=== PATIENT | male | born 1930 | race Caucasian/White ===

== ENCOUNTER 2016-04-01 05:33 | Inpatient (IN) | payer MEDICARE, OTHER ==
[~2016-04-01] VITALS: Ht 180.3 cm; Wt 92.5 kg
[2016-04-01 05:51] LABS: BASOPHILS 0.2 % (0.0-2.0); EOSINOPHILS 0.3 % (0-7); HEMATOCRIT 50.6 % (42.0-54.0); IMMATURE GRANULOCYTES 0.2 % (0-5); LYMPHOCYTES 11.7 % (15-50); MCHC 33.6 g/dL (31.0-37.0); MCV 95.1 fL (80.0-100.0); MEAN PLATELET VOLUME 10.3 fL (7.4-10.4); MONOCYTES 6.1 % (2-11); NEUTROPHILS 81.5 % (40-80); PLATELET COUNT 129 10x3/uL (130-400); RBC 5.32 10x6/uL (4.20-6.10); RDW 13.3 % (11.5-14.5); WBC 11.3 10x3/uL (4.8-10.8)
[2016-04-01 06:28] LABS: ALBUMIN 4.2 g/dL (3.4-5.0); ALKALINE PHOSPHATASE 54 U/L (46-116); ALT (SGPT) 20 U/L (10-68); CALC OSMOLALITY 287 mosm/kg (275-300); CALCIUM 9.6 mg/dL (8.5-10.1); CARBON DIOXIDE 27.3 mmol/L (21.0-32.0); CHLORIDE - SERUM 102 mmol/L (98-107); CREATININE - SERUM 1.6 mg/dL (0.6-1.3); GLUCOSE 183 mg/dL (74-106); POTASSIUM - SERUM 4.5 mmol/L (3.5-5.1); PROTEIN - SERUM 7.2 g/dL (6.4-8.2); SODIUM 138 mmol/L (136-145); UREA NITROGEN 31 mg/dL (7-18); eGFR NON AFRICAN AMERICAN 44 mL/min (90-120)
[2016-04-01 06:38] LABS: AMYLASE - SERUM 75 U/L (25-115); CHOL - HDL RATIO 2.6 ratio (2.3-4.9); CHOLESTEROL, TOTAL 148 mg/dL (0-200); CKMB 2.7 U/L (0.0-3.6); CREATINE KINASE 100 UL (21-232); HDL CHOLESTEROL 57 mg/dL (32-96); LDL CHOLESTEROL 71 mg/dL (0-100); LDL-HDL RATIO 1.2 ratio (1.5-3.5); LIPASE 87 U/L (73-393); PRO BNP 199 pg/mL (0-450); TRIGLYCERIDE 102 mg/dL (30-200); TROPONIN-I < 0.017 ng/mL (0.000-0.060)
--- NOTE | 2016-04-01 10:42 | NUR ---
RECEIVED TO ROOM 2203 FROM ER VIA . ORIENTED TO ROOM AND CALL LIGHT SYSTEM. HISTORY AND MED REC REVIEWED. PASSWORD OBTAINED. IN ROOM. CALL LIGHT IN REACH. WILL CONTINUE WITH PLAN OF CARE.
[2016-04-01] MEDS ORDERED: PRAVACHOL80 MG PO (10:45)
[2016-04-01] MEDS ORDERED: FLOMAX0.4 MG PO (10:45)
[2016-04-01] MEDS ORDERED: BAYER CHEWABLE81 MG PO (10:45)
[2016-04-01 11:29] VITALS: BP 142/76
--- NOTE | 2016-04-01 11:38 | NUR ---
NEW MEDS ADMINISTERED PER ORDER. CONSENT FORMS EXPLAINED TO PATIENT AND FAMILY, SIGNED, AND WITNESSED.
[2016-04-01 11:57] VITALS: BP 142/76; BMI 28.6
--- NOTE | 2016-04-01 13:54 | NUR ---
PREOP MEDS ADMINISTERED PER STUDENT NURSES. WAITING ON OR TO PICK PATIENT UP
--- NOTE | 2016-04-01 15:25 | NUR ---
TO OR VIA BED.
[2016-04-01 17:57] VITALS: BP 139/78
--- NOTE | 2016-04-01 17:57 | NUR ---
RECEIVED BACK TO ROOM VIA BED. FAMILY AT BEDSIDE. IV FLUIDS RUNNING. SCDs TO BLE. URINAL GIVEN TO PATIENT. FAMILY IN ROOM. CALL LIGHT IN REACH. WILL CONTINUE WITH PLAN OF CARE.
--- NOTE | 2016-04-01 18:16 | NUR ---
ZOSYN INFUSING. NO CHANGES IN INITIAL ASSESSMENT. CALL LIGHT IN REACH. WILL CONTINUE WITH PLAN OF CARE. SCDs TO BLE. FAMILY IN ROOM.
[2016-04-01 20:00] VITALS: BP 139/64
[2016-04-02] VITALS: BP 109/66
[2016-04-02 04:00] VITALS: BP 116/69
--- NOTE | 2016-04-02 07:10 | NUR ---
PATIENT RECEIVED ALERT IN LOW POSITION. RESPIRATIONS EVEN AND UNLABORED. DENIES PAIN. SIDE RAILS UP X2. BED IN LOW POSITION. CALL LIGHT IN REACH.
[2016-04-02] MEDS ORDERED: HYDROCODONE-APA1 TAB PO (07:44)
--- NOTE | 2016-04-02 08:06 | NUR ---
ALERT IN BED EATING BREAKFAST. TOLERATING WELL. SCHEDULED MEDICATION ADMINISTERED. DENIES NEEDS. SIDE RAILS UP X2. BED IN LOW POSITION. CALL LIGHT IN REACH.
[2016-04-02 08:28] VITALS: BP 120/59
[2016-04-02 08:53] VITALS: Ht 180.3 cm; Wt 92.5 kg
--- NOTE | 2016-04-02 08:55 | NUR ---
PATIENT 02 85% ON ROOM AIR AT REST. 02 3L VIA NASAL CANNULA PLACED ON PATIENT. O2 NOW 92%. PHYSICIAN NOTIFIED. ORDERS FOR PATIENT TO AMBULATE TO OPEN LUNGS UP AND IF NEEDED MAY SET UP HOME OXYGEN.
--- NOTE | 2016-04-02 09:00 | NUR ---
INSTRUCTED PATIENT ON AMBULATING IN HALLWAY AND USE OF INCENTIVE SPIROMETER TO OPEN LUNGS. STATES UNDERSTANDING. O2 AT 3L VIA NASAL CANNULA PRESENTLY
--- NOTE | 2016-04-02 09:30 | NUR ---
02 97% ON 3L OXYGEN. DECREASED TO 2L VIA NASAL CANNULA. STATES HE WAS UP AMBULATING IN HALLWAY AND DID FINE. WANTS TO GO HOME. INSTRUCTED PATIENT THAT WE HAD TO MAKE SURE HIS OXYGEN WAS AT A SAFE LEVEL IN ORDER TO GO HOME AND THAT HE MAY NEED HOME OXYGEN.
--- NOTE | 2016-04-02 10:00 | NUR ---
PATIENT REMAINS AT 97% ON 2L OXYGEN VIA NASAL CANNULA, DECREASED TO 1L VIA NASAL CANNULA. AGAIN STATES HE HAS BEEN UP WALKING AND USING INCENTIVE SPIROMETER. WILL CONTINUE TO MONITOR.
--- NOTE | 2016-04-02 10:15 | NUR ---
PATIENT UP AMBULATING IN HALLWAY. BACK TO ROOM NOW. SITTING UP ON SIDE OF BED ALERT. O2 82% ON ROOM AIR AT REST. NASAL CANNULA PLACED BACK ON PATIENT AND OXYGEN LEVEL IMMEDIATELY RETURNED TO 88% WITH 1L OXYGEN. PATIENT STATES "NOW LADY I'M NOT TRYING TO START SOMETHING, BUT I'M NOT STAYING HERE. EXPLAINED TO PATIENT THAT WE WERE NOT TRYING TO KEEP HIM HERE, BUT WE WERE TRYING TO MAKE SURE HIS OXYGEN WAS AT A SAFE LEVEL TO SEND HIM HOME AND HOME OXYGEN MAY BE NEEDED." PATIENT NOT AGREEABLE AT THIS TIME. JAMES TAYLOR, SAULO AND YRN SYKES RN CASE MANAGER NOTIFIED.
--- NOTE | 2016-04-02 10:26 | NUR ---
ASKED BY ARMEN MASON RN TO SPEAK WITH PATIENT REGARDING O2 REQUIREMENTS FOR DC. PATIENT O2 SAT DROPS TO 88 PERCENT WHILE SITTING UP IN BED. WITH AMBULATION SATURATION DROPS TO 82 PERCENT. INFORMED PATIENT, AND FAMILY AT BEDSIDE THAT THIS O2 SATURATION REQUIRES SUPPLEMENTAL O2. PATIENT IS AAO TIMES 4. HE REFUSES O2 TO BE ORDERED. STATES " I AM GOING HOME AND I DO NOT FEEL LIKE I NEED OXYGEN." PATIENT VERBALIZES UNDERSTANDING OF DANGERS OF LEAVING HOSPITAL WITHOUT SUPPLEMENTAL O2.
--- NOTE | 2016-04-02 10:40 | NUR ---
D/C TEACHING AND WRITTEN PRESCRIPTION PROVIDED TO PATIENT. INFORMED PATIENT THAT IF BEGAN FEELING SHORT OF BREATH, HAVING CHEST PAIN OR ANY OTHER SIGNS OF DISTRESS HE NEEDS TO RETURN TO ER. ALSO INSTRUCTED PATEINT TO CONTINUE USING ICENTIVE SPIROMETER ONCE AT HOME. STATES UNDERSTANDING. IV TO LEFT AC D/C WITH CATH TIP INTACT. SITE COVERED WITH GAUZE AND BANDAID
--- NOTE | 2016-04-02 10:50 | NUR ---
Patient Name: DOV KASPER Admission Status: ER Accout number: [id number] Admission Date: 04-01-2016 : 1930 Admission Diagnosis: Attending: IMER Current LOS: 1 Anticipated DC Date: 04-02-2016 Planned Disposition: Home Primary Insurance: MEDICARE A & B Discharge Planning Comments: CM came to the unit. The patient was standing at the desk and insisting he was leaving. The nurse and litigation coordinator were speaking to him about risk of leaving without oxygen. The patient was saying he did not have oxygen prior to admit. Stated he would fine once he got home. He stated he has a lung doctor who follows him at [facility]. CM spoke with the patient advised he may experience shortness of breath, fatigue, rapid heart rate, chest pain or discomfort, cough and temp. Explained the low O2 sat would make his heart work harder. Advised him to come back to the ER if any of the symptoms appeared. Advised his daughter, who was standing at the desk, that he had a fever of 101.8 2/3 at 1700 and that he has a low grade temp of 99 this AM. PCP- DR Becerra [facility] if he needs anything for short term. Has transportation to home. Has a nebulizer at home does not know the DME provider. "The lung doctor's office provided it ". Patient very anxious to leave. He also declined home health services. Crisis Mental Health Therapist: Rachana Coyne
--- NOTE | 2016-04-22 13:33 | OP ---
PATIENT NAME: DOV KASPER MEDICAL RECORD: [id number] :[birth year] LOCATION:D.MS Vergara3 ADMISSION DATE:04/01/16 SURGEON: ANGEL GILL MD DATE OF OPERATION: 04/01/2016 PREOPERATIVE DIAGNOSES: 1. Acute cholecystitis. 2. Coronary artery disease. 3. Benign prostatic hypertrophy. POSTOPERATIVE DIAGNOSES: 1. Acute cholecystitis. 2. Coronary artery disease. 3. Benign prostatic hypertrophy. PROCEDURE: Laparoscopic cholecystectomy. SURGEON: Angel Gill MD REPORT OF PROCEDURE: The patient's abdomen was prepped and draped in sterile fashion. A cutdown was made on the superior aspect of the umbilicus, 0 Vicryls were placed in the fascia bilaterally and the fascia was incised with 15-blade. I then bluntly entered the peritoneal cavity and placed a 12-mm Carline port. Under direct visualization, a 5 mm trocar was placed in the epigastrium and 2 more 5-mm trocars were placed in the right subcostal region. The gallbladder was grasped and elevated. There was noted to be some inflammatory changes and the gallbladder was quite distended with stones. The cystic artery and duct were dissected free and these were clipped proximally and distally and ligated in standard fashion. The gallbladder was then taken off the liver bed using electrocautery and placed into the right upper quadrant. Any bleeding from the liver bed was treated with electrocautery. At this point, the ports and insufflation were then removed and the gallbladder was taken out through the umbilicus. The umbilical fascia was closed with interrupted 0 Vicryls times 3. The wounds were irrigated out with normal saline and infused with 10 mL of 0.25% Marcaine with epinephrine. The skin incisions were all closed with subcutaneous 5-0 Monocryl and dressed appropriately. COMPLICATIONS: None. CONDITION: Stable. ANESTHESIA: General endotracheal and local. BLOOD LOSS: 30 mL. TRANSINT:[id number] Voice Confirmation ID: [id number] DOCUMENT ID: [id number] OPERATIVE REPORT [id number] MAJODOV ANGEL GILL MD at 1333 CC: [id number] DICTATION DATE: 04/01/16 1724 BEAUTY OPERATOR APPRENTICE: 04/01/16 2248 DIS IN 04/02/[address] [address]
--- NOTE | 2016-04-28 13:01 | DS ---
PATIENT:DOV KASPER :[birth year] MEDICAL RECORD: [id number] DISCHARGE SUMMARY ADMISSION DATE: 04/01/16 DISCHARGE DATE: 04/02/16 DATE OF ADMISSION: 04/01/2016 DATE OF DISCHARGE: 04/02/2016 ADMISSION DIAGNOSES: 1. Acute cholecystitis. 2. Coronary artery disease. 3. Benign prostatic hypertrophy. DISCHARGE DIAGNOSES: 1. Acute cholecystitis. 2. Coronary artery disease. 3. Benign prostatic hypertrophy. PROCEDURE: Laparoscopic cholecystectomy on 04/01/2016. REPORT OF HOSPITALIZATION: The patient was admitted to the hospital with findings of acute cholecystitis with gallstones. The patient was put on IV antibiotics and taken to the operating room. At that time, he underwent a laparoscopic cholecystectomy. He was maintained and overnight and noted to be tolerating a diet and his pain was well controlled, and at that point, he was felt to be stable for discharge home. DISCHARGE INSTRUCTIONS: Return to clinic or call with any questions or concerns, fevers, chills, nausea, vomiting or worsening abdominal pain. ACTIVITIES: No heavy lifting or straining for 2 weeks postoperatively. FOLLOWUP: In clinic with me in 2-3 weeks. DISCHARGE MEDICATIONS: Resume home medications with the inclusion of [place] 10. TRANSINT:[id number] Voice Confirmation ID: [id number] DOCUMENT ID: [id number] RENAN GILL MD at 1301 CC: [id number] DICTATION DATE: 04/26/16 1423 SPONGE FISHERMAN: 04/27/16 0751 DIS IN 04/02/16 [place] [address]
== END 2016-04-02 10:51 | disposition home or self-care (01) | DRG 419 ==
LOC: D.ER 05:33 → D.MS 09:00 → D.SDCHOLD 14:42 → D.MS 14:42
PROVIDERS: Family Medicine; ADMIT Surgery
PROC: 0FT44ZZ Resection of Gallbladder, Percutaneous Endoscopic Approach (ICD-10-PCS; principal; 2016-04-01 13:00)
DX: K80.00 Calculus of gallbladder with acute cholecystitis without obstruction (principal); I25.10 Atherosclerotic heart disease of native coronary artery without angina pectoris; N40.0 Benign prostatic hyperplasia without lower urinary tract symptoms

== ENCOUNTER 2018-03-15 08:41 | Inpatient (IN) | payer MEDICARE, OTHER ==
[~2018-03-15] VITALS: Ht 180.3 cm; Wt 87.5 kg
--- NOTE | ~2018-03-15 | HEMODYNAMI ---
PATIENT:DOV KASPER MEDICAL RECORD: [id number] : 34 LOCATION:.OK D.2226 ADMISSION DATE: 03/15/18 Generatedon:04/06/201815:02 Patient name: DOV KASPER Patient #: [id number] SSN: : 1930 Date of study: 04/06/2018 Page: Of Hemodynamic Procedure Report Patient Data Patient Demographics Procedure consent was obtained First Name: DOV Gender: Male Last Name: MAJO : 1930 Patient #: [id number] Age: 87 year(s) Race: Unknown Additional ID: [id number] Contact details Address: [address] [place] [address] rd State: [place] City: [place] Zip code: [address] Past Medical History Allergies: No known allergies Admission Admission Data Admission Date: 03/15/2018 Admission Time: 13:31 Room #: D.2226 Procedure Procedure Types Cath Procedure Peripheral Cath Diagnostic Procedure Foundation Relations Manager Peripheral Procedures Miscellaneous Cathetergram Procedure Description Procedure Date Procedure Date: 04/06/2018 Procedure Start Time: 14:41 Procedure Staff Name Function José Miguel Fraire MD Performing Physician Anna Bean RT Demand Equipment Repairer Becky Garcia RN Nurse Procedure Data Cath Procedure Fluoroscopy Diagnostic fluoroscopy Total fluoroscopy Time: 0.4 time: 0.4 min min Diagnostic fluoroscopy Total fluoroscopy dose: 39 dose: 39 mGy mGy Contrast Material Contrast Material Type Amount (ml) Isovue 300 30 Hemodynamics Rest Pre Cath Intra NCS Post Cath Procedure Log Time Note 14:34:56 Time tracking: Regular hours (M-F 7:00 - 5:00) 14:35:00 Signed procedure consent form obtained from patient. 14:35:13 Patient allergic to No known allergies 14:40:59 Physician arrived 14:40:59 --------ALL STOP TIME OUT------ 14:41:18 Procedure started. 14:41:18 Full Disclosure recording started 14:58:21 access needle to port found to not be in place. dr. fraire removed it and replaced with a 20gx1.0 y site port access kit. 14:58:57 Procedure ended.(Physican Out) 14:59:09 Fluoroscopy time 00.40 minutes. 14:59:36 Flurop Dose total: 39 14:59:36 Fluoroscopy dose: 39 mGy 14:59:48 Contrast amount:Isovue 300 30ml. 15:01:01 Procedure and supply charges have been captured, reviewed, submitted and are correct. Signature Audit Johnston Stage Time Signature Unsigned Intra-Procedure 04/06/2018 Anna Bean 3:01:58 PM RT(R) [facility] [address] [place] [address]
--- NOTE | ~2018-03-15 | CN ---
PATIENT NAME:DOV KASPER MEDICAL RECORD: [id number] : 34 LOCATION:D.MS Vergara2224 ADMIT DATE: 03/15/18 ACCOUNT: [id number] CONSULTING PHYSICIAN: LUISA CUMMINGS MD REFERRING PHYSICIAN: HERBIE ALFORD MD DATE OF CONSULTATION: 03/23/2018 CONSULT REQUESTING PHYSICIAN: Ryan Arroyo DO REASON FOR CONSULTATION: Right-sided pleural effusion, recently diagnosed with neuroendocrine tumor. HISTORY OF PRESENT ILLNESS: Mr. Kasper is an 87-year-old gentleman who was admitted on 03/15/2018 with a right-sided chest pain. Workup showed he has a large right pleural effusion. There is a mass in the right hilum. Then, 1800 fluids were aspirated. Since his procedure yesterday, the patient is post-sedation, he is very confused, very agitated and he is acting like picking things. REVIEW OF SYSTEMS: The detail is not obtainable. PAST MEDICAL HISTORY: 1. COPD. 2. History of coronary artery disease. 3. Hypertension. 4. Ex-smoker. 5. BPH. 6. Neuropathy. There is no history of alcohol abuse. PAST SURGICAL HISTORY: Status post CABG in 2001 and he has a knee surgery and tonsillectomy. ALLERGIES: There are no known drug allergy. MEDICATIONS: On Squid Facil is reviewed. PERSONAL AND SOCIAL HISTORY: The patient is an ex-smoker. He is a nondrinker. FAMILY HISTORY: Noncontributory. PHYSICAL EXAMINATION: GENERAL: Now, the patient is lying comfortably in bed, but he is very confused and agitated. VITAL SIGNS: The blood pressure is 143/73, pulse is 97, respirations 18, temperature 98.1, and SPO2 is 94% on room air. HEENT: Conjunctivae are pink. Sclerae are not icteric. NECK: Neck is supple, no JVD. CHEST: The chest excursion is minimal on both sides. There are crackles on the right side. No wheezing. HEART: Rhythm regular, normal sound, no murmur. ABDOMEN: Abdomen is soft, bowel sounds present. No hepatosplenomegaly. RECTAL: Deferred. EXTREMITIES: No cyanosis, no clubbing, no pedal edema. CONSULT REPORT [id number] DOV KASPER CENTRAL NERVOUS SYSTEM: The patient is very confused and agitated, he acts like picking things, he is not communicative. CHEST RADIOGRAPH: There is a right-sided pleural effusion. LABORATORY DATA: CBC: The WBC is 8000, hemoglobin is 15.5, hematocrit 46.3, the platelet count 144. Chemistry: Sodium 141, potassium 4.3, BUN is 22, creatinine 1.3. IMPRESSION: 1. Acute mental status changes and acute delirium. 2. 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 The fluid is exudative. 3. 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 4. Chronic obstructive pulmonary disease without exacerbation. 5. Hematuria, most likely traumatic secondary to catheter. 6. Insomnia. RECOMMENDATION: 1. I will check the CT scan of the head, check the chest x-ray decubitus film bilaterally. 2. Check the ammonia level, check the ABG. 3. The patient has already been prescribed Benadryl with the chemotherapy today. Dr. Arroyo, thank you for involving me in the care of Mr. Kasper. TRANSINT:[id number] Voice Confirmation ID: [id number] DOCUMENT ID: [id number] LUISA CUMMINGS MD CC: [id number] DICTATION DATE: 03/23/181822 GEOLOGICAL SAMPLE TESTER: 03/23/182246 ADM IN [facility] [address] [place] [address]
[~2018-03-15 08:41] MED LIST: BAYER CHEWABLE81 MG PO; FLOMAX0.4 MG PO; FLORAJEN3 CAPS460 MG PO; HYDROCODONE-APA1 TAB PO; LEVOFLOXACIN500 MG PO; PRAVACHOL80 MG PO
[2018-03-15] MEDS ORDERED: NORVASC5 MG PO (08:53)
[2018-03-15 10:27] LABS: ALBUMIN 3.8 g/dL (3.4-5.0); ALKALINE PHOSPHATASE 55 U/L (46-116); ALT (SGPT) 21 U/L (10-68); BILIRUBIN - TOTAL 0.69 mg/dL (0.2-1.3); CALC OSMOLALITY 290 mosm/kg (275-300); CALCIUM 9.2 mg/dL (8.5-10.1); CARBON DIOXIDE 27.9 mmol/L (21.0-32.0); CHLORIDE - SERUM 105 mmol/L (98-107); CREATININE - SERUM 1.3 mg/dL (0.6-1.3); GLUCOSE 121 mg/dL (74-106); POTASSIUM - SERUM 4.3 mmol/L (3.5-5.1); PROTEIN - SERUM 7.4 g/dL (6.4-8.2); SODIUM 142 mmol/L (136-145); UREA NITROGEN 31 mg/dL (7-18); eGFR NON AFRICAN AMERICAN 56 mL/min (90-120)
[2018-03-15 10:38] LABS: CKMB 2.5 U/L (0.0-3.6); CREATINE KINASE 70 UL (21-232); TROPONIN-I < 0.017 ng/mL (0.000-0.060)
[2018-03-15 12:18] VITALS: BP 100/58
--- NOTE | 2018-03-15 12:21 | NUR ---
PT STATES PAIN HAS IMPROVED. REPORTS STILL FEELS A "LITTLE WOOZEY". CONTINUES TO REPORT FEELS HEARTBEAT IN HIS EARS. DESCRIBES A "ROARING". BP 100/58, P 62.
[2018-03-15 12:49] LABS: BASOPHILS 0.2 % (0-2); EOSINOPHILS 0.1 % (0-7); HEMATOCRIT 46.7 % (42.0-54.0); HEMOGLOBIN 15.9 g/dL (13.5-17.5); IMMATURE GRANULOCYTES 0.2 % (0-5); LYMPHOCYTES 7.3 % (15-50); MCH 31.4 pg (26.0-34.0); MCV 92.3 fL (80.0-100.0); MONOCYTES 3.5 % (2-11); NEUTROPHILS 88.7 % (40-80); PLATELET COUNT 166 10x3/uL (130-400); RBC 5.06 10x6/uL (4.20-6.10); RDW 13.2 % (11.5-14.5); WBC 9.8 10x3/uL (4.8-10.8)
--- NOTE | 2018-03-15 13:49 | MORECARE ---
CASE MANAGEMENT DISCHARGE SUMMARY PATIENT: DOV KASPER UNIT: [id number] ADM DATE: 03/15/18 AGE: 87 : 32 SEX: M ROOM/BED: D.2224 AUTHOR: EMILY HINDS PHYSICIAN: REFERRING PHYSICIAN: HERBIE ALFORD MD DATE OF SERVICE: 03/15/18 Discharge Plan Patient Name: DOV KASPER [facility] [facility] 1930 Planned Disposition: Anticipated Discharge Date: Discharge Date: Expected LOS: Initial Reviewer: [email or web address] Initial Review Date: 03/15/2018 Generated: 03/15/18 2:49 pm DCPIA - Discharge Planning Initial Assessment Updated by [email or web address]: Romelia Allen on 03/15/18 1:49 pm * Is the patient Alert and Oriented? Yes * How many steps to enter\exit or inside your home? 5 w/rails * PCP Dr. Badillo * Pharmacy [facility] * Preadmission Environment Home with Family * ADLs Partial Dependent * Equipment Oxygen * Other Equipment Portable, Home O2 * List name and contact numbers for known caregivers / representatives who currently or will assist patient after discharge: [facility] * Verbal permission to speak to the caregivers and representatives has been obtained from the patient. Yes * Community resources currently utilized None * Please name any agencies selected above. NA Would benefit HHS, Rehab, Nursing/Rehab * Additional services required to return to the preadmission environment? Yes * Can the patient safely return to the preadmission environment? No * Has this patient been hospitalized within the prior 30 days at any hospital? Yes Patient Name: ODV KASPER Page [id number] at 1349 All edits/amendments must be made on the electronic document DICTATION DATE: 03/15/18 1349 ASSISTANT PASTRY CHEF: ANNE 03/15/18 1349 RPT#: [id number] DC DATE: STATUS: ADM IN [facility] [address] [place] [address] END OF REPORT
--- NOTE | 2018-03-15 14:00 | NUR ---
PATIENT TO ROOM AT THIS TIME WITH FAMILY AT BEDSIDE.
--- NOTE | 2018-03-15 14:20 | MORECARE ---
CASE MANAGEMENT DISCHARGE SUMMARY PATIENT: DOV KASPER UNIT: [id number] ADM DATE: 03/15/18 AGE: 87 : 32 SEX: M ROOM/BED: D.2224 AUTHOR: LIZET,DOC PHYSICIAN: REFERRING PHYSICIAN: HERBIE ALFORD MD DATE OF SERVICE: 03/15/18 Discharge Plan Patient Name: DOV KASPER Facility: [facility]:[place] : 1930 Planned Disposition: Anticipated Discharge Date: Discharge Date: Expected LOS: Initial Reviewer: [email or web address] Initial Review Date: 03/15/2018 Generated: 03/15/18 3:20 pm Comments DCP- Discharge Planning Updated by [email or web address]: Romelia Allen on 03/15/18 1:[address] CM met with patient/ in ER for dc needs/plans. Patient gives permission to speak with . Patient is [place], wears glasses. PCP: Dr. Badillo. Pharmacy: Pharmacy. HHS: None. Lives in his home with , Ledy Kasper. Spouse states patient is having great difficulty walking and she is afraid to assist, due to chance of falling. DME: Home O2 with portable tank at bedside. Provider is [facility]. Patient would benefit use of WALKER upon discharge. Emergency contact: Ledy Kapser (spouse) [phone], Zac Kasper (son) [phone]. Patient was released from the hospital this past on antibiotic therapy. Spouse states patient needs REHAB or HHS upon discharge as he has been unable to be independent. CM will assist with dc needs/plans PRN. Romelia Allen RN, CM DCPIA - Discharge Planning Initial Assessment Updated by [email or web address]: Romelia Allen on 03/15/18 1:49 pm * Is the patient Alert and Oriented? Yes * How many steps to enter\exit or inside your home? 5 w/rails * PCP Dr. Badillo * Pharmacy Pharmacy * Preadmission Environment Home with Family * ADLs Partial Dependent * Equipment Oxygen * Other Equipment Portable, Home O2 * List name and contact numbers for known caregivers / representatives who currently or will assist patient after discharge: [facility] * Verbal permission to speak to the caregivers and representatives has been obtained from the patient. Yes * Community resources currently utilized None * Please name any agencies selected above. NA Would benefit HHS, Rehab, Nursing/Rehab * Additional services required to return to the preadmission environment? Yes * Can the patient safely return to the preadmission environment? No * Has this patient been hospitalized within the prior 30 days at any hospital? Yes Last DP export: 03/15/18 12:49 p Patient Name: DOV KASPER Page [id number] at 1420 All edits/amendments must be made on the electronic document DICTATION DATE: 03/15/181418 OCCASIONAL BABYSITTER: DM 03/15/181418 RPT#: [id number] DC DATE: STATUS: ADM IN [facility] [address] [place] [address] END OF REPORT
[2018-03-15 14:23] VITALS: BP 136/71; BMI 27.4
--- NOTE | 2018-03-15 14:23 | NUR ---
PATIENT RECIEVED ZOFRAN FOR NAUSEA. IV INTACT. FAMILY AT SIDE. ASSESSMENT COMPLETE, VS STABLE. NO COMPLAINTS OR SIGNS OF DISTRESS. NO SKIN BREAKDOWN NOTED. WILL CONTINUE TO MONITOR. CALL ILZ FIGUEROA.
--- NOTE | 2018-03-15 16:40 | NUR ---
PATIENT IN BED WITH EYES CLOSED RESTING QUIETLY. IV INTACT. CALL LIGHT WITHIN REACH.
--- NOTE | 2018-03-15 18:50 | NUR ---
PATIENT IN BED WITH IV INTACT. STATED HE IS HAVING A SMALL AMOUNT OF SIDE PAIN BUT DOESNT WANT PAIN MEDS AT THIS TIME. EXPLAINED TO PATIENT HE CAN HAVE IT ANYTIME, JUST TO CALL THE NURSE ON THE CALL LIGHT. CALL LIGHTW ITHIN REACH. BED ALARM ON.
--- NOTE | 2018-03-15 19:40 | NUR ---
PTs SON REQUESTS PRN PAIN MEDICATION FOR HIM AFTER REPORT IS FINISHED.
--- NOTE | 2018-03-15 20:10 | NUR ---
SUPINE IN BED, EYES CLOSED, CHEST RISE NOTED, NO S/SX OF DISTRESS.
[2018-03-15 20:20] VITALS: BP 120/60
--- NOTE | 2018-03-15 22:03 | NUR ---
PT REPORTS STEADY PAIN 6-7/10 TO RIGHT, LOWER, RIBCAGE AREA. SMALL REDDENED AREA NOTED, BUT PT STATES HE HAS BEEN RUBBING IT PRETTY HARD.
--- NOTE | 2018-03-16 02:18 | NUR ---
ASSESSED, PT IS ASLEEP WITH EASY RESPIRATIONS AND O2 PER MD ORDERS. NO DISTRESS NOTED.
--- NOTE | 2018-03-16 03:46 | NUR ---
DENIES PAIN, "STATED TODAY IS THE BEST HE'S FELT IN TWO WEEKS. DENIES NEEDS AT THIS TIME, WILL CONTINUE TO MONITOR.
[2018-03-16 04:07] LABS: BASOPHILS 0 % (0-2); EOSINOPHILS 0 % (0-7); HEMOGLOBIN 15.3 g/dL (13.5-17.5); IMMATURE GRANULOCYTES 0.2 % (0-5); LYMPHOCYTES 12.2 % (15-50); MCH 31.8 pg (26.0-34.0); MCV 93.6 fL (80.0-100.0); MEAN PLATELET VOLUME 10.2 fL (7.4-10.4); MONOCYTES 7.1 % (2-11); NEUTROPHILS 80.5 % (40-80); PLATELET COUNT 152 10x3/uL (130-400); RBC 4.81 10x6/uL (4.20-6.10); RDW 13.2 % (11.5-14.5); WBC 8.5 10x3/uL (4.8-10.8)
[2018-03-16 04:32] LABS: ANION GAP 12.4 mmol/L (8-16); CALCIUM 8.8 mg/dL (8.5-10.1); CARBON DIOXIDE 27.6 mmol/L (21.0-32.0); CREATININE - SERUM 1.4 mg/dL (0.6-1.3)
[2018-03-16 05:53] VITALS: BP 114/69
[2018-03-16 07:31] VITALS: BP 115/76
--- NOTE | 2018-03-16 08:00 | NUR ---
PATIENT RESTING IN BED WITH NO NEEDS VOICED, REPORTS PAIN TO RIGHT SIDE IMPROVED WITH PAIN MEDICATIONS. BREATH SOUNDS SLIGHTLY DEMINISHED TO RIGHT LOWER LOBE. CL IN REACH
--- NOTE | 2018-03-16 11:52 | MORECARE ---
CASE MANAGEMENT DISCHARGE SUMMARY PATIENT: DOV KASPER UNIT: [id number] ADM DATE: 03/15/18 AGE: 87 : 32 SEX: M ROOM/BED: D.2224 AUTHOR: LIZET,DOC PHYSICIAN: REFERRING PHYSICIAN: HERBIE ALFORD MD DATE OF SERVICE: 03/16/18 Discharge Plan Patient Name: DOV KASPER [facility]:[place] : 1930 Planned Disposition: Anticipated Discharge Date: Discharge Date: Expected LOS: Initial Reviewer: [email or web address] Initial Review Date: 03/15/2018 Generated: 03/16/18 12:51 pm DCP- Discharge Planning Updated by [email or web address]: Romelia Allen on 03/15/18 1:[address] CM met with patient/ in ER for dc needs/plans. Patient gives permission to speak with . Patient is [place], wears glasses. PCP: Dr. Badillo. Pharmacy: Pharmacy. HHS: None. Lives in his home with , Ledy Kasper. Spouse states patient is having great difficulty walking and she is afraid to assist, due to chance of falling. DME: Home O2 with portable tank at bedside. Provider is [facility]. Patient would benefit use of WALKER upon discharge. Emergency contact: Ledy Kasper (spouse) [phone], Zac Kasper (son) [phone]. Patient was released from the hospital this past on antibiotic therapy. Spouse states patient needs REHAB or HHS upon discharge as he has been unable to be independent. CM will assist with dc needs/plans PRN. Romelia Allen RN, CM DCPIA - Discharge Planning Initial Assessment Updated by [email or web address]: Romelia Allen on 03/15/18 1:49 pm * Is the patient Alert and Oriented? Yes * How many steps to enter\exit or inside your home? 5 w/rails * PCP Dr. Badillo * Pharmacy Pharmacy * Preadmission Environment Home with Family * ADLs Partial Dependent * Equipment Oxygen * Other Equipment Portable, Home O2 * List name and contact numbers for known caregivers / representatives who currently or will assist patient after discharge: [facility] * Verbal permission to speak to the caregivers and representatives has been obtained from the patient. Yes * Community resources currently utilized None * Please name any agencies selected above. NA Would benefit HHS, Rehab, Nursing/Rehab * Additional services required to return to the preadmission environment? Yes * Can the patient safely return to the preadmission environment? No * Has this patient been hospitalized within the prior 30 days at any hospital? Yes External Providers External Provider: [facility] Patient-[facility] Next Contact Date: Service Request Date: Service Type: Resolution: Reviewer: Comments: Last DP export: 03/15/18 1:20 p Patient Name: DOV KASPER Page 32202 at 1152 All edits/amendments must be made on the electronic document DICTATION DATE: 03/16/18 115 FLIGHT PHYSICIAN: ANNE 03/16/18 1151 RPT#: [id number] DC DATE: STATUS: ADM IN [facility] [address] [place] [address] END OF REPORT
--- NOTE | 2018-03-16 11:59 | MORECARE ---
CASE MANAGEMENT DISCHARGE SUMMARY PATIENT: DOV KASPER UNIT: [id number] ADM DATE: 03/15/18 AGE: 87 : 32 SEX: M ROOM/BED: D.2224 AUTHOR: LIZET,DOC PHYSICIAN: REFERRING PHYSICIAN: HERBIE ALFORD MD DATE OF SERVICE: 03/16/18 Discharge Plan Patient Name: DOV KASPER Facility: [facility]:[place] : 1930 Planned Disposition: Anticipated Discharge Date: Discharge Date: Expected LOS: Initial Reviewer: [email or web address] Initial Review Date: 03/15/2018 Generated: 03/16/18 12:59 pm DCP- Discharge Planning Updated by [email or web address]: Romelia Allen on 03/15/18 1:[address] CM met with patient/ in ER for dc needs/plans. Patient gives permission to speak with . Patient is [place], wears glasses. PCP: Dr. Badillo. Pharmacy: Pharmacy. HHS: None. Lives in his home with , Ledy Kasper. Spouse states patient is having great difficulty walking and she is afraid to assist, due to chance of falling. DME: Home O2 with portable tank at bedside. Provider is [facility]. Patient would benefit use of WALKER upon discharge. Emergency contact: Ledy Kasper (spouse) [phone], Zac Kasper (son) [phone]. Patient was released from the hospital this past on antibiotic therapy. Spouse states patient needs REHAB or HHS upon discharge as he has been unable to be independent. CM will assist with dc needs/plans PRN. Romelia Allen RN, CM DCPIA - Discharge Planning Initial Assessment Updated by [id number]: Romelia Allen on 03/15/18 1:49 pm * Is the patient Alert and Oriented? Yes * How many steps to enter\exit or inside your home? 5 w/rails * PCP Dr. Badillo * Pharmacy Pharmacy * Preadmission Environment Home with Family * ADLs Partial Dependent * Equipment Oxygen * Other Equipment Portable, Home O2 * List name and contact numbers for known caregivers / representatives who currently or will assist patient after discharge: [facility] * Verbal permission to speak to the caregivers and representatives has been obtained from the patient. Yes * Community resources currently utilized None * Please name any agencies selected above. NA Would benefit HHS, Rehab, Nursing/Rehab * Additional services required to return to the preadmission environment? Yes * Can the patient safely return to the preadmission environment? No * Has this patient been hospitalized within the prior 30 days at any hospital? Yes External Providers [email or web address] Next Contact Date: Service Request Date: Service Type: Resolution: Reviewer: Comments: Last DP export: 03/16/18 10:52 a Patient Name: DOV KASPER Page [phone] at 1159 All edits/amendments must be made on the electronic document DICTATION DATE: 03/16/18 115 CONVEX GRINDER OPERATOR: ANNE 03/16/18 1159 RPT#: [id number] DC DATE: STATUS: ADM IN [facility] [address] [place] [address] END OF REPORT
--- NOTE | 2018-03-16 12:18 | MORECARE ---
CASE MANAGEMENT DISCHARGE SUMMARY PATIENT: DOV KASPER UNIT: [id number] ADM DATE: 03/15/18 AGE: 87 : 32 SEX: M ROOM/BED: D.2224 AUTHOR: LIZET,DOC PHYSICIAN: REFERRING PHYSICIAN: HERBIE ALFORD MD DATE OF SERVICE: 03/16/18 Discharge Plan Patient Name: DOV KASPER Facility: [facility]:[place] : 1930 Planned Disposition: Anticipated Discharge Date: Discharge Date: Expected LOS: Initial Reviewer: [email or web address] Initial Review Date: 03/15/2018 Generated: 03/16/18 1:18 pm Comments DCP- Discharge Planning Updated by [email or web address]: Taina Lala on 03/16/18 11:[address] Spoke with patient and family concerning discharge plans. PT recommends discharge with home health with 2 wheeled walker. He would like walker from [facility] and ÁNGEL for [facility] signed. I called and spoke to Kayla at [facility] and clinical faxed. CM will continue to follow and assist with discharge planning/needs. DCP- Discharge Planning Updated by [email or web address]: Romelia Allen on 03/15/18 1:[address] CM met with patient/ in ER for dc needs/plans. Patient gives permission to speak with . Patient is [place], wears glasses. PCP: Dr. Badillo. Pharmacy: Pharmacy. HHS: None. Lives in his home with , Ledy Kasper. Spouse states patient is having great difficulty walking and she is afraid to assist, due to chance of falling. DME: Home O2 with portable tank at bedside. Provider is [facility]. Patient would benefit use of WALKER upon discharge. Emergency contact: Ledy Kasper (spouse) [phone], Zac Kasper (son) [phone]. Patient was released from the hospital this past on antibiotic therapy. Spouse states patient needs REHAB or HHS upon discharge as he has been unable to be independent. CM will assist with dc needs/plans PRN. Romelia Allen RN, CM DCPIA - Discharge Planning Initial Assessment Updated by [email or web address]: Romelia Allen on 03/15/18 1:49 pm * Is the patient Alert and Oriented? Yes * How many steps to enter\exit or inside your home? 5 w/rails * PCP Dr. Badillo * Pharmacy [facility] * Preadmission Environment Home with Family * ADLs Partial Dependent * Equipment Oxygen * Other Equipment Portable, Home O2 * List name and contact numbers for known caregivers / representatives who currently or will assist patient after discharge: [facility] * Verbal permission to speak to the caregivers and representatives has been obtained from the patient. Yes * Community resources currently utilized None * Please name any agencies selected above. NA Would benefit HHS, Rehab, Nursing/Rehab * Additional services required to return to the preadmission environment? Yes * Can the patient safely return to the preadmission environment? No * Has this patient been hospitalized within the prior 30 days at any hospital? Yes Last DP export: 03/16/18 10:59 a Patient Name: DOV KASPER Page [phone] at 1218 All edits/amendments must be made on the electronic document DICTATION DATE: 03/16/181216 MULESER: ANNE 03/16/181216 RPT#: [id number] DC DATE: STATUS: ADM IN [facility] [address] [place] [address] END OF REPORT
[2018-03-16 13:37] VITALS: BP 105/54
--- NOTE | 2018-03-16 15:56 | NUR ---
PATIENT REPORTS PAIN HAS INCREASED SINCE MORPHINE WAS GIVEN, REPORTS PAIN TO RIGHT SIDE BELOW LOWEST RIB. REPORTED TO ALEJANDRA BROWN APN.
--- NOTE | 2018-03-16 19:15 | NUR ---
RECEIVE CARE FROM DAY NURSE. SITTING UP IN BED. EYES CLOSED. RESP EVEN AND UNLABORED. IV SL TO RIGHT HAND.
[2018-03-16 20:00] VITALS: BP 132/58
[2018-03-16 20:17] LABS: APPEARANCE CLEAR (CLEAR); BILIRUBIN NEGATIVE (NEGATIVE); COLOR YELLOW (YELLOW); GLUCOSE NEGATIVE (NEGATIVE); KETONE NEGATIVE (NEGATIVE); NITRITE NEGATIVE (NEGATIVE); PROTEIN NEGATIVE (NEGATIVE); SPECIFIC GRAVITY 1.025 (1.005-1.020); UROBILINOGEN NORMAL (NORMAL)
[2018-03-17 00:41] VITALS: BP 129/51
[2018-03-17 05:25] VITALS: BP 125/67
[2018-03-17 06:25] LABS: BASOPHILS 0.6 % (0-2); EOSINOPHILS 0.6 % (0-7); HEMATOCRIT 44.4 % (42.0-54.0); HEMOGLOBIN 14.9 g/dL (13.5-17.5); IMMATURE GRANULOCYTES 0.1 % (0-5); LYMPHOCYTES 17.5 % (15-50); MCH 31.4 pg (26.0-34.0); MCHC 33.6 g/dL (31.0-37.0); MCV 93.5 fL (80.0-100.0); MEAN PLATELET VOLUME 10.6 fL (7.4-10.4); MONOCYTES 13.4 % (2-11); NEUTROPHILS 67.8 % (40-80); PLATELET COUNT 150 10x3/uL (130-400); RBC 4.75 10x6/uL (4.20-6.10); RDW 13.2 % (11.5-14.5); WBC 8.4 10x3/uL (4.8-10.8)
[2018-03-17 06:32] LABS: ANION GAP 11.2 mmol/L (8-16); CALCIUM 8.5 mg/dL (8.5-10.1); CARBON DIOXIDE 30.1 mmol/L (21.0-32.0); CREATININE - SERUM 1.4 mg/dL (0.6-1.3); POTASSIUM - SERUM 4.3 mmol/L (3.5-5.1)
--- NOTE | 2018-03-17 07:41 | NUR ---
AWAKE AND ALERT. ORIENTED X3. NO C/O AT THIS TIME. REPORTS RIGHT CHEST NOT HURTING FOR NOW. LUNGS ARE CLEAR BILATERALLY, OCCASSIONAL DRY COUGH NOTED. SKIN IS INTACT WITHOUT REDNESS. SL TO RIGHT HAND PATENT WITHOUT REDNESS AT INSERTION SITE. DENIES NEEDS.
[2018-03-17 08:57] VITALS: BP 119/58
--- NOTE | 2018-03-17 10:30 | NUR ---
UP TO SHOWER WITH ONE PERSON ASSIST. LINENS CHANGED PER STAFF. AT BEDSIDE.
[2018-03-17 12:12] VITALS: Ht 180.3 cm; Wt 87.5 kg
--- NOTE | 2018-03-17 12:15 | NUR ---
REQUESTED AND GIVEN 2MG MORPHINE SLOW IVP FOR C/O RIGHT SIDE RIB PAIN LEVEL 6. WILL MONITOR.
[2018-03-17 12:55] VITALS: BP 116/68
--- NOTE | 2018-03-17 17:38 | NUR ---
REQUESTED AND GIVEN 2MG MORPHINE SLOW IVP FOR C/O RIGHT RIB PAIN LEVEL 6. WILL MONITOR.
--- NOTE | 2018-03-17 19:15 | NUR ---
RECEIVED CARE FROM DAY NURSE. SITTING UP IN BED WITH COMPANY AT SIDE. REPORTS NO NEEDS AT THIS TIME. CALL LIGHT AT SIDE. IV SL TO RIGHT HAND.
--- NOTE | 2018-03-17 19:21 | NUR ---
SITTING UP IN BED. DENIES NEEDS. NO CHANGES NOTED.
[2018-03-17 20:00] VITALS: BP 120/51
[2018-03-18] VITALS: BP 115/49
--- NOTE | 2018-03-18 00:13 | NUR ---
RN NOTE: PT RESTING QUIETLY IN SUPINE POSITION WITH EYES CLOSED. AGREE WITH PLASTICS PATTERNMAKER ASSESSMENT. CALL LIGHT WITHIN REACH.
[2018-03-18 03:00] VITALS: BP 120/56
[2018-03-18 05:03] LABS: BASOPHILS 0.7 % (0-2); EOSINOPHILS 1.7 % (0-7); HEMATOCRIT 45.1 % (42.0-54.0); HEMOGLOBIN 15.1 g/dL (13.5-17.5); IMMATURE GRANULOCYTES 0.2 % (0-5); LYMPHOCYTES 15.8 % (15-50); MCH 31.4 pg (26.0-34.0); MCHC 33.5 g/dL (31.0-37.0); MCV 93.8 fL (80.0-100.0); MEAN PLATELET VOLUME 10.2 fL (7.4-10.4); MONOCYTES 19.2 % (2-11); NEUTROPHILS 62.4 % (40-80); PLATELET COUNT 133 10x3/uL (130-400); RBC 4.81 10x6/uL (4.20-6.10); RDW 13.3 % (11.5-14.5)
[2018-03-18 05:07] LABS: WBC 5.8 10x3/uL (4.8-10.8)
[2018-03-18 05:13] LABS: ANION GAP 11.9 mmol/L (8-16); CALCIUM 8.1 mg/dL (8.5-10.1); CARBON DIOXIDE 29.1 mmol/L (21.0-32.0); CREATININE - SERUM 1.3 mg/dL (0.6-1.3)
[2018-03-18 07:23] LABS: INR 1.09 (0.85-1.17); PROTIME 13.6 SECONDS (11.6-15.0)
--- NOTE | 2018-03-18 08:30 | NUR ---
AWAKE AND ALERT. ORIENTED X3. NO C/O AT THIS TIME. LUNGS ARE CLEAR BILATERALLY, NO COUGH NOTED. SKIN IS INTACT WITHOUT REDNESS. SL TO RIGHT HAND IS PATENT WITHOUT REDNESS AT INSERTION SITE. DENIES NEEDS.
[2018-03-18 09:21] VITALS: BP 135/71
--- NOTE | 2018-03-18 09:30 | NUR ---
ATE ALL OF BREAKFAST HE WANTED. STATED HE NORMALLY EATS TOAST AND COFFEE. DENIES NEEDS.
[2018-03-18 16:56] VITALS: BP 116/56
--- NOTE | 2018-03-18 19:00 | NUR ---
REPORT RECEIVED AND CARE OF PT ASSUMED. PT LYING IN LOW RAMACHANDRAN'S POSITION WITH EYES CLOSED. IV IN RIGHT HAND SALINE LOCKED. O2 IN USE VIA NC AT 2L. WILL MONITOR FOR NEEDS.
--- NOTE | 2018-03-18 19:27 | NUR ---
ATE LESS THAN HALF OF SUPPER. NO CHANGES NOTED. DENIES NEEDS.
[2018-03-18 20:00] VITALS: BP 128/70
--- NOTE | 2018-03-18 20:00 | NUR ---
HS MEDICATIONS GIVEN TO INCLUDE MORPHINE PER REQUEST FOR PAIN. WILL MONITOR FOR EFFECTIVENESS. SIDE RAILS UP X2 FOR SAFETY.
--- NOTE | 2018-03-18 21:04 | NUR ---
PT RESTING IN LOW RAMACHANDRAN'W POSITION WITH EYES CLOSED. WILL CONTINUE TO MONITOR FOR NEEDS.
--- NOTE | 2018-03-18 21:30 | NUR ---
GAVE NORCO 5 PO PER REQUEST FOR PAIN IN RIGHT SIDE. WILL MONITOR FOR EFFECTIVENESS.
[2018-03-19] VITALS (9 sets, daily range): BP systolic 107–141; BP diastolic 53–72
[2018-03-19 04:56] LABS: BASOPHILS 0.7 % (0-2); EOSINOPHILS 1.5 % (0-7); HEMATOCRIT 47.6 % (42.0-54.0); HEMOGLOBIN 15.8 g/dL (13.5-17.5); IMMATURE GRANULOCYTES 0.2 % (0-5); LYMPHOCYTES 22.4 % (15-50); MCHC 33.2 g/dL (31.0-37.0); MCV 93.5 fL (80.0-100.0); MEAN PLATELET VOLUME 10.3 fL (7.4-10.4); MONOCYTES 18.2 % (2-11); PLATELET COUNT 141 10x3/uL (130-400); RBC 5.09 10x6/uL (4.20-6.10); RDW 13.2 % (11.5-14.5); WBC 5.8 10x3/uL (4.8-10.8)
[2018-03-19 05:09] LABS: ANION GAP 12.6 mmol/L (8-16); CALCIUM 8.4 mg/dL (8.5-10.1); CARBON DIOXIDE 28.3 mmol/L (21.0-32.0); CREATININE - SERUM 1.3 mg/dL (0.6-1.3); POTASSIUM - SERUM 3.9 mmol/L (3.5-5.1)
--- NOTE | 2018-03-19 07:45 | NUR ---
PATIENT IN BED WITH NO COMPLAINTS OR SIGNS OF DISTRESS. FAMILY AT BEDSIDE. PATIENT IV INTACT. WILL CONTINUE TO MONITOR. CALL LIGHT WITHIN REACH.
--- NOTE | 2018-03-19 11:45 | NUR ---
PATIENT BACK TO ROOM AT THIS TIME. IV INTACT. FAMILY AT BEDSIDE. CALL LIGHT WITHIN REACH. NO COMPLAINTS OR SIGNS OF DISTRESS. CALL LIGHT WITHIN REACH.
[2018-03-19 15:25] LABS: PROTEIN - BODY FLUID 3.9 G/DL
--- NOTE | 2018-03-19 18:00 | NUR ---
PATIENT IN BED WITH IV INTACT. NO COMPLAINTS OR SIGNS OF DISTRESS. RECIEVED NORCO FOR PAIN. FAMILY AT BEDSIDE. CALL LIGHT WITHIN REACH.
[2018-03-19 19:51] LABS: MACROPHAGES BF 6 %; MESOTHELIALS BF 7 %; NEUT - BF 6 %
--- NOTE | 2018-03-19 20:45 | NUR ---
RESTING QUIELTY IN BED. RESP UNLABORED. NO DISTRESS NOTED. SL TO RIGHT HAND WITHOUT REDNESS OR EDMAA NOTED. NO COMPLAITNS VOICED. CL IN REACH
--- NOTE | 2018-03-20 04:19 | NUR ---
PT SLEEPING. BREATHING IS EVEN AND SHALLOW. BED LOW. CALL LIGHT IN REACH. TRAY TABLE BESIDE BED. WILL CONTINUE POC.
[2018-03-20 04:47] VITALS: BP 118/62
[2018-03-20 05:34] LABS: BASOPHILS 0.5 % (0-2); EOSINOPHILS 1.2 % (0-7); HEMATOCRIT 45.8 % (42.0-54.0); HEMOGLOBIN 15.2 g/dL (13.5-17.5); IMMATURE GRANULOCYTES 0.3 % (0-5); LYMPHOCYTES 23.4 % (15-50); MCH 30.8 pg (26.0-34.0); MCHC 33.2 g/dL (31.0-37.0); MCV 92.9 fL (80.0-100.0); MEAN PLATELET VOLUME 10.6 fL (7.4-10.4); MONOCYTES 14.2 % (2-11); NEUTROPHILS 60.4 % (40-80); PLATELET COUNT 137 10x3/uL (130-400); RBC 4.93 10x6/uL (4.20-6.10); RDW 13.3 % (11.5-14.5); WBC 6.6 10x3/uL (4.8-10.8)
[2018-03-20 06:00] LABS: ANION GAP 14.7 mmol/L (8-16); CALCIUM 8.3 mg/dL (8.5-10.1); CREATININE - SERUM 1.2 mg/dL (0.6-1.3); POTASSIUM - SERUM 3.7 mmol/L (3.5-5.1)
[2018-03-20 08:28] VITALS: BP 124/58
[2018-03-20 11:55] VITALS: BP 128/69
[2018-03-20 16:58] VITALS: BP 120/58
--- NOTE | 2018-03-20 18:08 | NUR ---
PATIENT AND SON UPSET BECAUSE PATIENT IS STILL IN PAIN AFTER RECIEVING PAIN PILL. CALLED [facility] SE[facility] AND RECIEVED ORDER FOR ANOTHER HALF OF HYDROCODONE. GAVE TO PATIENT. SON AND PATIENT STILL UPSET. EXPLAINED TO BOTH THAT IF THIS DOESNT HELP THE PATIENT THAT THE PHYSICIAN WILL BE CALLED AGAIN AND WILL BE NOTIFIED THAT THE PATIENT IS STILL IN PAIN. VERBALIZED UNDERSTANDING AT THIS TIME. PATIENT DOES NOT WANT TO TAKE THE SUPPOSITORY AT THIS TIME. IV INTACT. CALL LIGHT WITHIN REACH.
[2018-03-20 20:00] VITALS: BP 130/76
[2018-03-20 20:07] LABS: ACID FAST SMEAR Negative (()); AFB SPECIMEN PROCESSING Not Indicated (())
--- NOTE | 2018-03-20 20:30 | NUR ---
LYING QUEITLY WITHOUT COMPLAINTS VOICED AT THIS TIME. RESP EVEN AND UNALBORED. NO DISTRESS NOTED. DRESSING INTACT TO RIGHT CHEST WITHOUT DRAINAGE NOTED. SL TO RIGHT HAND WITHOUT REDNESS OR EDEMA NOTED. CL IN REACH. SON AT BEDSIDE.
--- NOTE | 2018-03-20 22:10 | NUR ---
PATIENT AGREED TO TAKE SUPPOSITORY AT THIS TIME WITH 2 SMALL FORMED BALLS BM NOTED. WILL CONTINUE TO MONITOR FOR RESULTS.
[2018-03-21] VITALS: BP 112/66
[2018-03-21 04:00] VITALS: BP 134/65
[2018-03-21 05:43] LABS: BASOPHILS 0.4 % (0-2); EOSINOPHILS 1.8 % (0-7); HEMATOCRIT 45.6 % (42.0-54.0); HEMOGLOBIN 15.3 g/dL (13.5-17.5); IMMATURE GRANULOCYTES 0.1 % (0-5); LYMPHOCYTES 19.4 % (15-50); MCH 31.2 pg (26.0-34.0); MCHC 33.6 g/dL (31.0-37.0); MCV 92.9 fL (80.0-100.0); MONOCYTES 11.2 % (2-11); NEUTROPHILS 67.1 % (40-80); PLATELET COUNT 133 10x3/uL (130-400); RBC 4.91 10x6/uL (4.20-6.10); RDW 13.5 % (11.5-14.5); WBC 7.2 10x3/uL (4.8-10.8)
[2018-03-21 06:38] LABS: ALBUMIN 3.1 g/dL (3.4-5.0); ANION GAP 14.9 mmol/L (8-16); BILIRUBIN - TOTAL 0.75 mg/dL (0.2-1.3); CALCIUM 8.4 mg/dL (8.5-10.1); CARBON DIOXIDE 27.3 mmol/L (21.0-32.0); CREATININE - SERUM 1.2 mg/dL (0.6-1.3); POTASSIUM - SERUM 4.2 mmol/L (3.5-5.1); PROTEIN - SERUM 6.1 g/dL (6.4-8.2)
[2018-03-21 09:16] VITALS: BP 116/65
[2018-03-21 10:21] LABS: FUNGUS STAIN Final report (())
[2018-03-21 12:00] VITALS: BP 107/71
--- NOTE | 2018-03-21 12:28 | NUR ---
PT RESTING IN BED. NO SIGNS OF DISTRESS. IV TO RIGHT HAND PATENT NO REDNESS OR TENDERNESS. ON 2L NC. HAS DRESSING TO RIGHT BACK. CLEAN AND INACT. ON TELEMETRY 91 SINUS RYTHEM. DENIES ANY NEED AT THIS TIME. CALL LIGHT IN REACH. BED LOW POSITION. FAMILY AT BEDSIDE.
--- NOTE | 2018-03-21 13:57 | NUR ---
NUTRITION F/U PT TOLERATING REG DIET WITH 75% INTAKE RECENT MEALS. WILL CONTINUE TO PROVIDE DIET, HONOR FOOD PREFERENCES. RD FOLLOWING
--- NOTE | 2018-03-21 20:13 | NUR ---
AWAKE,ALERT,NORCO GIVEN FOR COMPLAINTS OF PAIN 06/06. RESP EVEN AND UNLABORED. NO DISTRESS NOTED. O2 @ 2L PER NC ON. SL TO RIGHT HAND WITHOUT REDNESS OR EDEMA NOTED. CL IN REACH.
[2018-03-21 20:35] VITALS: BP 127/58
[2018-03-22 04:57] VITALS: BP 152/80
--- NOTE | 2018-03-22 05:03 | NUR ---
EYES CLOSED RESPIRATIONS WITH EASE AND UNLABORED.SR UP X2 CALL LIGHT WITHIN REACH.
[2018-03-22 06:21] LABS: BASOPHILS 0.4 % (0-2); EOSINOPHILS 2.2 % (0-7); HEMATOCRIT 46.9 % (42.0-54.0); HEMOGLOBIN 15.8 g/dL (13.5-17.5); IMMATURE GRANULOCYTES 0.3 % (0-5); LYMPHOCYTES 17.9 % (15-50); MCH 31.7 pg (26.0-34.0); MCHC 33.7 g/dL (31.0-37.0); MCV 94.2 fL (80.0-100.0); MEAN PLATELET VOLUME 10.4 fL (7.4-10.4); NEUTROPHILS 67.2 % (40-80); PLATELET COUNT 153 10x3/uL (130-400); RBC 4.98 10x6/uL (4.20-6.10); RDW 13.7 % (11.5-14.5); WBC 7.3 10x3/uL (4.8-10.8)
[2018-03-22 06:42] LABS: ALBUMIN 3.3 g/dL (3.4-5.0); ANION GAP 12.7 mmol/L (8-16); BILIRUBIN - TOTAL 0.85 mg/dL (0.2-1.3); CALCIUM 8.6 mg/dL (8.5-10.1); CARBON DIOXIDE 28.8 mmol/L (21.0-32.0); CREATININE - SERUM 1.1 mg/dL (0.6-1.3); POTASSIUM - SERUM 4.5 mmol/L (3.5-5.1); PROTEIN - SERUM 6.4 g/dL (6.4-8.2)
[2018-03-22 08:51] VITALS: BP 132/70
--- NOTE | 2018-03-22 10:00 | NUR ---
PT RESTING IN BED. NO SIGNS OF DISTRESS. IV TO RIGHT HAND PATENT NO REDNESS OR TENDERNESS. ON 2L NC. ON TELEMETRY 88 NORMAL SINUS. AWAITING TO HAVE PORT PLACED TODAY. DENIES ANY NEED AT THIS TIME. CALL LIGHT IN REACH. BED LOW POSITION. FAMILY AT BEDSIDE.
[2018-03-22 14:40] VITALS: BP 131/59
--- NOTE | 2018-03-22 15:26 | NUR ---
PT RECIEVED FROM RECOVERY NO SIGNS OF DISTRESS. PORT TO RIGHT CHEST AND ACCESSED. TRYING TO GET UP OUT OF THE BED. AND FAMILY AT BEDSIDE. DENIES ANY NEED AT THIS TIME. CALL LIGHT IN REACH. BED LOW POSITION.
[2018-03-22 16:30] VITALS: BP 127/74
--- NOTE | 2018-03-22 19:00 | NUR ---
REPORT RECEIVED AND CARE OF PT ASSUMED. PT LYING IN SEMI RAMACHANDRAN'S POSITION VISITING WITH FAMILY MEMBER. IV IN RIGHT HAND PATENT WITH NS INFUSING AT 50 ML / HR. RIGHT PORT SALINE LOCKED. O2 IN USE VIA NC AT 3L. TELEMETRY IN PLACE AND READING 90 SR W/ BBB AT THIS ASSESSMENT. WILL MONITOR CLOSLEY FOR NEEDS.
[2018-03-22 20:31] VITALS: BP 128/67
--- NOTE | 2018-03-22 21:14 | NUR ---
HS MEDICATIONS GIVEN. PT DENIES PAIN OR NEED FOR PAIN MED AT THIS TIME. WILL CONTINUE TO MONITOR FOR NEEDS.
[2018-03-23] VITALS (9 sets, daily range): BP systolic 111–150; BP diastolic 59–78
--- NOTE | 2018-03-23 00:15 | NUR ---
PT VERY RESTLESS AND WILL NOT SLEEP...SON IS AT BEDSIDE. PT KEEPS GETTING UP AND LOOKING FOR HIS DOG OR WALLET. ABLE TO RE-ORIENT BUT NOT FOR LONG. BED ALARM IN USE. SIDE RAILS UP X2 FOR SAFETY.
[2018-03-23 04:11] LABS: BASOPHILS 0.4 % (0-2); EOSINOPHILS 2.1 % (0-7); HEMATOCRIT 46.3 % (42.0-54.0); HEMOGLOBIN 15.5 g/dL (13.5-17.5); IMMATURE GRANULOCYTES 0.3 % (0-5); LYMPHOCYTES 11.5 % (15-50); MCH 31.4 pg (26.0-34.0); MCHC 33.5 g/dL (31.0-37.0); MCV 93.9 fL (80.0-100.0); MEAN PLATELET VOLUME 9.9 fL (7.4-10.4); NEUTROPHILS 73.7 % (40-80); PLATELET COUNT 144 10x3/uL (130-400); RBC 4.93 10x6/uL (4.20-6.10); RDW 13.5 % (11.5-14.5)
[2018-03-23 04:42] LABS: ALBUMIN 3.1 g/dL (3.4-5.0); ANION GAP 14.1 mmol/L (8-16); BILIRUBIN - TOTAL 0.67 mg/dL (0.2-1.3); CALCIUM 8.1 mg/dL (8.5-10.1); CARBON DIOXIDE 27.2 mmol/L (21.0-32.0); CREATININE - SERUM 1.3 mg/dL (0.6-1.3); POTASSIUM - SERUM 4.3 mmol/L (3.5-5.1); PROTEIN - SERUM 6.5 g/dL (6.4-8.2)
--- NOTE | 2018-03-23 05:53 | NUR ---
PT HAS NOT SLEPT ALL NIGHT...YELLING OUT FOR . WILL NOT STAY IN BED...KEEPS LOOKING FOR HIS DOG, OR CAR KEYS, OR HIS WALLET. SON HAS BEEN AT BEDSIDE ALL SHIFT. BED ALARM IN USE AND SIDE RAILS UP X2 FOR SAFETY.
--- NOTE | 2018-03-23 17:56 | NUR ---
PATIENT IS NOW ABLE TO SPEAK BUT IS CONFUSED, EXPLAINED TO FAMILY THAT IN ELDERLY EFFECTS OF ANESTHESIA WILL TAKE LONGER TO RESOLVE, PATIENT NEEDS QUIET AND LESS STIMULATION TO ALLOW HIM TO REST
[2018-03-24] VITALS (11 sets, daily range): BP systolic 126–150; BP diastolic 66–81
--- NOTE | 2018-03-24 01:56 | NUR ---
CARBOPLATIN WAS STARTED AT 2200. PT STARTED SOUNDING WHEEZY AND OXYGEN SAT WAS IN LOW 80'S. SPOKE WITH DR DELCID. GAVE SOLUMEDROL 125 MG IV PUSH. 1ST CHEMO INFUSION COMPLETE. LUNG SOUNDS WET, MORE CRACKLES. CALLED DR DELCID. GAVE ONE TIME LASIX 20 MG IV PUSH. BEGAN 2ND CHEMO INFUSION OF ETOPOSIDE AT 2320. PT TOLERATED WELL. OXYGEN SATS 89% AND TEMP DOWN TO 99.0 DEGREES AT END OF INFUSION. PT SLEEPING. FAMILY AT BEDSIDE. WILL CONTINUE TO MONITOR.
[2018-03-24 04:47] LABS: BASOPHILS 0.1 % (0-2); EOSINOPHILS 0 % (0-7); HEMATOCRIT 46.1 % (42.0-54.0); HEMOGLOBIN 15.3 g/dL (13.5-17.5); IMMATURE GRANULOCYTES 0.1 % (0-5); LYMPHOCYTES 4.6 % (15-50); MCH 31.2 pg (26.0-34.0); MCHC 33.2 g/dL (31.0-37.0); MCV 93.9 fL (80.0-100.0); MEAN PLATELET VOLUME 10.3 fL (7.4-10.4); MONOCYTES 0.4 % (2-11); NEUTROPHILS 94.8 % (40-80); PLATELET COUNT 150 10x3/uL (130-400); RBC 4.91 10x6/uL (4.20-6.10); RDW 13.3 % (11.5-14.5); WBC 7.5 10x3/uL (4.8-10.8)
[2018-03-24 05:15] LABS: ALBUMIN 3.1 g/dL (3.4-5.0); ANION GAP 17.6 mmol/L (8-16); BILIRUBIN - TOTAL 0.9 mg/dL (0.2-1.3); CALCIUM 8.3 mg/dL (8.5-10.1); CARBON DIOXIDE 23.8 mmol/L (21.0-32.0); CREATININE - SERUM 1.3 mg/dL (0.6-1.3); POTASSIUM - SERUM 4.4 mmol/L (3.5-5.1); PROTEIN - SERUM 6.7 g/dL (6.4-8.2)
--- NOTE | 2018-03-24 07:30 | NUR ---
PATIENT IN BED WITH IV INTACT. NO COMPLAINTS OR SIGNS OF DISTRESS. FAMILY AT BEDSIDE. CALL LIGHT WITHIN REACH.
--- NOTE | 2018-03-24 11:45 | NUR ---
PATIENT IN BED WITH NO COMPLAINTS OR SIGNS OF DISTRESS. IV INTACT. CALL LIGHT WITHIN REACH.
--- NOTE | 2018-03-24 14:45 | NUR ---
PATIENT SITTING UP IN BED TALKING TO FAMILY. NO COMPLAINTS OR SIGNS OF DISTRESS. STILL CONFUSED. BSCDS ON AND WORKING. IV AND VELASQUEZ INTACT. CALL LIGHT WITHIN REACH.
--- NOTE | 2018-03-24 17:35 | NUR ---
PATIENT TRYING TO GET OUT OF BED. BED ALARMING. ASSISTED PATIENT BACK TO LAYING POSITIONED. EXPLAINED TO HIM WHERE HE WAS AND WHAT WAS HAPOENING. VELASQUEZ AND IV INTACT. NO COMPLAINTS OR DISTRESS. BSCDS ON. BA TURNED BACK ON. CALL LIGHT WITHIN REACH.
--- NOTE | 2018-03-24 18:45 | NUR ---
PATIENT IN BED WITH EYES CLOSED RESTING QUIETLY AT THIS TIME. IV INTACT. NO COMPLAINTS. FAMILY AT BEDSIDE. BED ALARM ON. BSCDS ON AND WORKING. CALL LIGHT WITHIN REACH.
--- NOTE | 2018-03-24 21:44 | NUR ---
PT ALERT AND ORIENTED. PREMEDICATED WITH BENADRYL, PT IMMEDIATELY CONFUSED AND SPEECH IS GARBLED. HALLUCINATING AND INCREASINGLY AGITATED. FAMILY IN ROOM TRYING TO CALM PT DOWN. PT WON'T BE STILL FOR VITAL SIGNS. WILL TRY TO START CHEMO IN LATER.
--- NOTE | 2018-03-24 23:30 | NUR ---
CHEMO INFUSION STARTED. VITALS SIGNS GOOD. PT STILL RESTLESS AND CONFUSED. PT PULLING AT LINES AND CATHETER AND BECOMING COMBATIVE. STAYED WITH PT DURING INFUSION TO HELP KEEP SAFE. CALLED DR DELCID. GAVE PT GEODON 10 MG IM TO RIGHT VENTROGLUTEAL. PT STARTING TO CALM DOWN STILL PICKNG AT AIR BUT APPEARS TO BE TIRING OUT. WILL CONTIUE TO MONITOR.
[2018-03-25] VITALS (29 sets, daily range): BP systolic 101–172; BP diastolic 56–110
--- NOTE | 2018-03-25 02:45 | NUR ---
PT'S SON CALLED NURSE TO ROOM. WET BREATH SOUNDS HEARD STANDING BY BED. PT'S LUNGS SOUNDED CLEAR BEFORE, DURING AND RIGHT AFTER CHEMO BUT ARE NOW AUDIBLY WET. OXYGEN SAT 84% 4L/NC. GAVE LASIX 20 MG IV PUSH. OXYGEN SAT NOT IMPROVING BUT DECREASING DOWN TO 78%. CALLED RAPID RESPONSE. ICU NURSES AND RT RESPONDED TO ROOM.
--- NOTE | 2018-03-25 03:10 | NUR ---
RAPID RESPONSE CALLED, SEE RR SHEET
--- NOTE | 2018-03-25 03:45 | NUR ---
BIPAP PLACED 16/8 AT 100% FIO2
--- NOTE | 2018-03-25 04:35 | NUR ---
DR. CUMMINGS NOTIFIED OF RAPID RESPONSE FOR THIS PATIENT, ORDERS TO MOVE TO ICU RECEIVED
--- NOTE | 2018-03-25 05:00 | NUR ---
THIS PATIENT MOVED TO ICU ROOM 2314, ALL MONITORING EQUIPMENT ATTATCHED, PER ICU PROTOCOL, PATIENT CONTINUES ON BIPAP @ 100%, WILL CONTINUE TO MONITOR
--- NOTE | 2018-03-25 05:45 | NUR ---
SON AT BEDSIDE, UPDATE GIVEN, QUESTIONS ANSWERED
--- NOTE | 2018-03-25 07:00 | NUR ---
REC'D CARE OF PT. ON BIPAP. VSS.
--- NOTE | 2018-03-25 08:22 | NUR ---
TOOK OFF OF BIPAP AND PLACED ON 3L PER NC. SATTING 95% BY REBECA GAY.
[2018-03-25 08:24] LABS: BASOPHILS 0.1 % (0-2); EOSINOPHILS 0 % (0-7); HEMATOCRIT 46.5 % (42.0-54.0); HEMOGLOBIN 15.9 g/dL (13.5-17.5); IMMATURE GRANULOCYTES 0.2 % (0-5); LYMPHOCYTES 4.8 % (15-50); MCH 31.5 pg (26.0-34.0); MCHC 34.2 g/dL (31.0-37.0); MCV 92.1 fL (80.0-100.0); MEAN PLATELET VOLUME 10.2 fL (7.4-10.4); NEUTROPHILS 89.9 % (40-80); PLATELET COUNT 164 10x3/uL (130-400); RBC 5.05 10x6/uL (4.20-6.10); RDW 13.2 % (11.5-14.5)
[2018-03-25 08:25] LABS: WBC 16.8 10x3/uL (4.8-10.8)
--- NOTE | 2018-03-25 08:30 | NUR ---
CONFUSED. PULLING AT LINES. TRYING TO CLIMB OOB. RESTRAINED FOR PT. SAFETY.
--- NOTE | 2018-03-25 08:36 | NUR ---
REMOVED HIS BOTTOM PARTIAL PLATE AND GAVE IT TO HIS . SHE HAD CONTAINER WITH UPPER IN IT ALREADY.
[2018-03-25 08:45] LABS: ALBUMIN 3.5 g/dL (3.4-5.0); ANION GAP 17.4 mmol/L (8-16); BILIRUBIN - TOTAL 0.88 mg/dL (0.2-1.3); CALCIUM 8.7 mg/dL (8.5-10.1); CARBON DIOXIDE 26.3 mmol/L (21.0-32.0); CREATININE - SERUM 1.6 mg/dL (0.6-1.3); POTASSIUM - SERUM 4.7 mmol/L (3.5-5.1); PROTEIN - SERUM 7.5 g/dL (6.4-8.2)
--- NOTE | 2018-03-25 08:59 | NUR ---
FAMILY ASSISTING WITH BREAKFAST TRAY.
--- NOTE | 2018-03-25 10:35 | NUR ---
DISCUSSED THORACENTESTS WITH MANUEL MCKENZIE SO SHE CAN GET SCHEDULED.
--- NOTE | 2018-03-25 11:12 | NUR ---
PROCALAMINE STARTED BACK AT 50 CC PER HOUR
--- NOTE | 2018-03-25 11:25 | NUR ---
INCONTINENT OF STOOL. BATHED AND LINEN CHANGED.PERICARE PERFORMED.
--- NOTE | 2018-03-25 13:26 | NUR ---
FAMILY AT BEDSIDE. SHE WANTED TO BATH PT. TORSO AND UNDER ARMS. AND DID SO.
--- NOTE | 2018-03-25 14:35 | NUR ---
PLEASANTLY CONFUSED. PULLING AT ANYTHING HE CAN. REMIANS RESTRAINED FOR SAFETY.
--- NOTE | 2018-03-25 14:36 | NUR ---
REPOSITIONS SELF IN BED.
--- NOTE | 2018-03-25 16:07 | NUR ---
FAMILY AT BEDSIDE. PT. REQUESTED ICECREAM. OBLIGED.
--- NOTE | 2018-03-25 16:37 | NUR ---
INCONTINENT OF STOOL. BATHED. LINENS CHANGED. PERICARE PERFORMED.
--- NOTE | 2018-03-25 17:53 | NUR ---
INCONTINENT OF STOOL. BATHED. LINEN CHANGED. PERICARE PERFORMED.
--- NOTE | 2018-03-25 18:54 | NUR ---
REMAINS RESTRAINED AND SAFE.
--- NOTE | 2018-03-25 19:20 | NUR ---
RECEIVED PATIENT CARE - SHIFT ASSESSMENT COMPLETED SEE FLOWSHEET WILL CONTINUE TO MONITOR - PT RESTING COMFORTABLY, SLIGHTLY GARBLED. MOMENTS OF CLEAR SPEECH, CAN FOLLOW COMMANDS. ANSWERS QUESTIONS INAPPROPRIATELY. WILL CPOC
--- NOTE | 2018-03-25 20:10 | NUR ---
FAMILY AT BEDSIDE, QUESTIONS ABOUT CHEMOTHERAPY AND PREOP MEDICATIONS ANSWERED PREOP MEDICATIONS BEING PREPARED AT THIS TIME. ALL SCANNED AND GIVEN TO PATIENT AT BEDSIDE, SEE EMAR FOR ADMINISTRATION. UPON RECEIVING ORDERED DOSE OF IV BENADRYL PT BEGAN TO VIOLENTLY SHAKE AND BECAME UNRESPONSIVE. PUPILS FULLY DILATED HR INCREASE. TACHYCARDIA 130'S NOTED. EPISODE LASTED LESS THAN 60 SECONDS. UPON RECOVERY PT PUPILS PERRLA. ABLE TO FOLLOW COMMANDS, SPEECH EXTREMELY GARBLED, UNABLE TO ANSWER QUESTIONS APPROPRIATELY. DISCUSSED WITH DAUGHTER AT BEDSIDE. SHE SAID THEY WITNESSED A SIMILAR EPISODE THE PREVIOUS NIGHT WITH PSYCHOTIC EPISODES FOLLOWING MED ADMINISTRATION. DISCUSSED WITH ROBERT EDDY RN - DR. DELCID AWARE OF THE MEDICATION/PATIENT REACTION AND DOSE GIVEN TONIGHT IS LOWER THAN PREVIOUS DOSE RECEIVED. PATIENT HAD SMALL UNCONTROLLABLE SHAKING SPELLS POST REACTION. AND STATED "HE CAN'T GET HIS LEGS TO STOP" AND "I FELT LIKE I WAS GOING 300 THERE FOR A SECOND" VSS. NURSE AT BEDSIDE TO MONITOR FOR FURTHER REACTIONS.
--- NOTE | 2018-03-25 20:40 | NUR ---
ROBERT EDDY RN CALLED FROM MED/SURG INQUIRING ABOUT PREOP CHEMO MEDICATIONS. NOTIFIED RN THAT PRE-CHEMO MEDS GIVEN AND ZOFRAN HANGING WITH APPROXIMATELY 15 MINUTES LEFT ON INFUSION. RN INFORMED THIS RN THAT CHEMO THERAPY WOULD START IN ABOUT 30 MINUTES.
--- NOTE | 2018-03-25 21:30 | NUR ---
PT RECEIVED HS MEDICATIONS, DID NOT TOLERATE SWALLOWING PO MEDICATIONS WELL.
--- NOTE | 2018-03-25 22:14 | NUR ---
CHEMO RN AT BEDSIDE, THERAPY INITIATED. PT RESTING COMFORTABLY, SLIGHTLY CONFUSED NON COMBATIVE AT THIS TIME. BM NOTED PRIOR TO RN ARRIVAL, FULL BED CHANGE AND HALIE CARE COMPLETED.
--- NOTE | 2018-03-25 22:25 | NUR ---
PT PREMEDICATED BY SAULO MALIK. VITALS SIGNS STABLE. BLOOD RETURN GOOD FROM INFUSAPORT. ETOPOSIDE INFUSION STARTED. VITAL SIGNS REMAIN STABLE AFTER 15 MINUTES INFUSING. ICU NURSE TO CONTINUE MONITORIG VITALS SIGNS. WILL RETURN TO TAKE DOWN INFUSION AND ASSESS PT WHEN COMPLETE.
--- NOTE | 2018-03-25 23:25 | NUR ---
CHEMO INFUSION COMPLETE. VITALS SIGNS STABLE. NO ADVERSE REACTION TO CHEMO NOTES THIS FAR. TUBING TAKEN DOWN AND DISPOSED OF IN YELLOW BIOHAZARD CONTAINER.
--- NOTE | 2018-03-25 23:30 | NUR ---
CHEMOTHERAPY COMPLETED REASSESSMENT COMPLETED SEE FLOWSHEET. BM NOTED - FULL LINEN CHANGE AND BATH PERFORMED. PATIENT COMBATIVE DURING BEDCHANGE. VSS, RESTING EASY ONCE LINEN CHANGE COMPLETED. PATIENT DRIFTED OFF TO SLEEP, RN OFF FLOOR TO UPDATE FAMILY ON PATIENT CONDITION AT THIS TIME.
[2018-03-26] VITALS (23 sets, daily range): BP systolic 111–153; BP diastolic 70–104
--- NOTE | 2018-03-26 00:45 | NUR ---
LUNG SOUNDS CLEAR, NO APPARANT DISTRESS, VSS CPOC
--- NOTE | 2018-03-26 02:54 | NUR ---
REASSESSMENT COMPLETED SEE FLOWSHEET. PT ASLEEP, EASY TO ROUSE, SLIGHTLY CONFUSED BUT CAN FOLLOW COMMANDS.
--- NOTE | 2018-03-26 05:10 | NUR ---
BM NOTED, PARTIAL LINEN CHANGE PERFORMED AT THIS TIME. LABS DRAWN FROM CHEST PORT AND DELIVERED BY THIS NURSE. CPOC
[2018-03-26 05:12] LABS: BASOPHILS 0.1 % (0-2); EOSINOPHILS 0 % (0-7); HEMATOCRIT 45.2 % (42.0-54.0); HEMOGLOBIN 15.5 g/dL (13.5-17.5); IMMATURE GRANULOCYTES 0.3 % (0-5); LYMPHOCYTES 2.3 % (15-50); MCH 31.3 pg (26.0-34.0); MCHC 34.3 g/dL (31.0-37.0); MCV 91.1 fL (80.0-100.0); MEAN PLATELET VOLUME 9.8 fL (7.4-10.4); MONOCYTES 1.5 % (2-11); NEUTROPHILS 95.8 % (40-80); PLATELET COUNT 143 10x3/uL (130-400); RBC 4.96 10x6/uL (4.20-6.10); RDW 13.2 % (11.5-14.5); WBC 14.5 10x3/uL (4.8-10.8)
[2018-03-26 05:38] LABS: ALBUMIN 3.2 g/dL (3.4-5.0); ANION GAP 19.5 mmol/L (8-16); BILIRUBIN - TOTAL 0.87 mg/dL (0.2-1.3); CALCIUM 8.5 mg/dL (8.5-10.1); CARBON DIOXIDE 24.3 mmol/L (21.0-32.0); POTASSIUM - SERUM 4.8 mmol/L (3.5-5.1); PROTEIN - SERUM 6.8 g/dL (6.4-8.2)
[2018-03-26 05:43] LABS: CREATININE - SERUM 2.8 mg/dL (0.6-1.3)
--- NOTE | 2018-03-26 07:00 | NUR ---
REPORT RECIEVED FROM THE OFF GOING RN. SEE ASSESSMENT IN THE PTS FLOW SHEET. PT SINUS TACH. ON 4L VIA NC. LEFT SIDED CHEST PORT NOTED. DRESSING C/D/I. SEE IV FLUIDS IN THE FLOW SHEET. PT CONFUSED A&O TO PERSON ONLY. SLURRED GARBLED SPEECH NOTED. DRESSING TO RIGHT LATERAL CHEST C/D/I. FC NOTED. RED TINGED URINE NOTED. BILATERAL SOFT WRIST RESTRAINTS NOTED. PT NPO FOR POSSIBLE L THORACENTESIS TODAY. CALL LIGHT IN REACH. WILL MONITOR.
--- NOTE | 2018-03-26 08:30 | NUR ---
PT CALM AT THIS TIME. FAMILY AT THE PTS BEDSIDE. PT UNRESTAINED.
--- NOTE | 2018-03-26 09:05 | NUR ---
DR DELCID IN THE UNIT. ORDERS FOR UA, URIC ACID AND FOR NS AT 50ML/H
--- NOTE | 2018-03-26 09:54 | NUR ---
NUTRITION F//U PT CURRENTLY NPO FOR POSSIBLE PROCEDURE. CONTINUES PROCALAMINE AT 50 CC/HR. WILL MONITOR PO INTAKE WHEN DIET RESUMED. RD FOLLOWING
--- NOTE | 2018-03-26 11:00 | NUR ---
PT INC OF BOWEL. SMALL BM NOTED. PT CLEANED AND BED LINENES CHANGED. FRESH GOWN PROVIDED FOR THE PT.
--- NOTE | 2018-03-26 12:50 | NUR ---
DR GREER PAGED AND MADE AWARE OF CONSULT.
--- NOTE | 2018-03-26 13:46 | NUR ---
DR CANTOR AT THE PTS BEDSIDE.
[2018-03-26 14:30] LABS: APPEARANCE CLOUDY (CLEAR); BACTERIA FEW /hpf (NONE SEEN); BILIRUBIN NEGATIVE (NEGATIVE); COLOR PINK (YELLOW); EPITHELIAL CELLS RARE /hpf (0-5); GLUCOSE NEGATIVE (NEGATIVE); KETONE NEGATIVE (NEGATIVE); NITRITE NEGATIVE (NEGATIVE); PROTEIN 1+ mg/dL (NEGATIVE); RED CELLS - URINE >50 /hpf (0-5); SPECIFIC GRAVITY 1.015 (1.005-1.020); UROBILINOGEN NORMAL (NORMAL); WHITE CELLS - URINE OCC /hpf (0-5)
--- NOTE | 2018-03-26 15:08 | NUR ---
DR GREER IN THE UNIT.
--- NOTE | 2018-03-26 16:57 | NUR ---
FC NOTED TO HAVE HEMITURIA WHICH IS NOT A NEW FIND. OVER 700 IN AND <250 OUT WHENEVER OBTAINING I&O'S. ATTEPMTED TO FLUSH FC WITH MINIMAL DRAINAGE BACK. DR ALFORD NOTIFIED WITH ORDRES TO CONSULT DR SPEARS. DR SPEARS PAGED AND MADE AWARE. HE PLANS TO PLACE A FC IN THE OR.
--- NOTE | 2018-03-26 17:32 | NUR ---
DR SPEARS AT THE PTS BEDSIDE SPEAKING WITH THE FAMILY. DR SPEARS STATED THAT IT MIGHT BE AROUND MIDNIGHT FOR THEM TO PUT IN THE FC. PT DENIES PAIN AT THIS TIME.
--- NOTE | 2018-03-26 17:33 | NUR ---
CONSENTS FOR FC INSERTION BY DR SPEARS SIGNED BY THE SON. CONSENTS FOR A CT GUIDED THOROCENTESIS TOMORROW ALSO SIGNED. ALL CONSENTS PLACED IN CHART.
--- NOTE | 2018-03-26 19:00 | NUR ---
SHIFT ASSESSMENT COMPLETE. PT IS CONFUSED TO PLACE AND SITUATION. REORIENTED. GARBLED SPEECH. HE IS WEARING GLASSES. S1S2 AUDIBLE, HR 108 SINUS TACH SHOWING ON MONITOR. RR SHALLOW, DIMINISHED LUNG SOUNDS HEARD THROUGHOUT ALL LOBES. O2 SAT 94%, NC ON @ 4 L/MIN. SCARS NOTED ON PT'S CHEST. ABD FLAT AND NON TENDER TO TOUCH, BS ACTIVE X4. R CHEST INFUSA PORT INTACT, DRESSING CHANGED TODAY PER AM NURSE. PROCAL INFUSING @ 50 ML/HR AND NS @ 40 ML/HR. VELASQUEZ CATH INTACT, BLOODY URINE NOTED. SCANT AMOUNT OF YELLOW URINE IN TUBE, BUT VELASQUEZ APPEARS IF IT IS NOT DRAINING PROPERLY. DR. SPEARS IS AWARE, CONSENTS FOR CYSTOSCOPY AND VELASQUEZ CATH INSERTION SIGNED AND ARE ON THE FRONT OF PT'S CHART. COMPLETE LINEN CHANGE PROVIDED. LARGE, SEMI-FORMED STOOL NOTED. PT TOLERATED WELL. RADIAL AND PEDAL PULSES PALP. REPOSITIONED FOR COMFORT. STRICT NPO. BED ALARM ON, CALL LIGHT IN REACH. WILL CONT WITH POC.
--- NOTE | 2018-03-26 21:00 | NUR ---
REPOSITIONED FOR COMFORT. PT HAS GARBLED SPEECH AND IS REACHING FOR THINGS IN THE AIR. REORIENTED. VSS. CALL LIGHT IN REACH, BED ALARM ON. PT IS IN SIGHT OF THE NURSE'S STATION.
--- NOTE | 2018-03-26 23:10 | NUR ---
REASSESSMENT COMPLETE. PT IS CONFUSED AND DOES NOT UNDERSTAND WHY HE IS HERE. REORIENTED AND EXPLAINED HIS CONDITION TO HIM. COMPLETE LINEN CHANGE PROVIDED. SMALL SEMI FORMED BM NOTED. PT TOLERATED WELL. CALL LIGHT IN REACH, BED IN LOWEST POSITION. BED ALARM ON. PT IN SIGHT OF NURSE'S STATION. WILL CONT WITH POC.
[2018-03-27] VITALS (24 sets, daily range): BP systolic 103–138; BP diastolic 57–87
--- NOTE | 2018-03-27 00:45 | NUR ---
PT STATES THAT HE FEELS IF HE HAS TO URINATE AND HE IS HAVING PAIN. GOING TO GET BLADDER SCANNER NOW.
--- NOTE | 2018-03-27 00:50 | NUR ---
SCANT AMOUNT OF URINE COLLECTED THROUGHOUT SHIFT. BLOODY URINE NOTED IN COLLECTION CHAMBER. IRRIGATED VELASQUEZ, SOLUTION IS COLLECTING AROUND VELASQUEZ. D/C'D VELASQUEZ DUE TO CLOTS. PT IS TRYING TO URINATE VIA URINAL AT THIS TIME. WILL CONT TO ASSESS CLOSELY.
--- NOTE | 2018-03-27 01:00 | NUR ---
PT VOIDED 25 ML BLOODY URINE. PARTIAL LINEN CHANGE PROVIDED. VSS. WILL CONT TO MONITOR CLOSELY.
--- NOTE | 2018-03-27 03:00 | NUR ---
PT IRRITATED ABOUT NPO. REORIENTED AND EDUCATED HIM ON WHY HE WAS NPO. PT URINATED APPROX 25 ML BLOODY URINE ON PAD. PARTIAL LINEN CHANGE PROVIDED. VSS. CALL LIGHT IN REACH. BED IN LOWEST POSITION. WILL CONT CLOSE MONITORING IN ICU.
--- NOTE | 2018-03-27 05:00 | NUR ---
PT RESTING AT THIS TIME. VSS. WILL CONT WITH POC.
--- NOTE | 2018-03-27 06:00 | NUR ---
PAGED DR. SPEARS TO INFORM HIM OF VELASQUEZ CATH REMOVAL.
--- NOTE | 2018-03-27 06:20 | NUR ---
COMPLETE LINEN CHANGE PROVIDED. PT TOLERATED WELL.
--- NOTE | 2018-03-27 06:31 | NUR ---
DR. SPEARS MADE AWARE OF VELASQUEZ CATH REMOVAL.
[2018-03-27 06:38] LABS: BASOPHILS 0 % (0-2); EOSINOPHILS 0 % (0-7); HEMATOCRIT 44.5 % (42.0-54.0); HEMOGLOBIN 15.2 g/dL (13.5-17.5); IMMATURE GRANULOCYTES 0.2 % (0-5); LYMPHOCYTES 3.7 % (15-50); MCH 31.4 pg (26.0-34.0); MCHC 34.2 g/dL (31.0-37.0); MCV 91.9 fL (80.0-100.0); MEAN PLATELET VOLUME 10.1 fL (7.4-10.4); MONOCYTES 1.6 % (2-11); NEUTROPHILS 94.5 % (40-80); PLATELET COUNT 138 10x3/uL (130-400); RBC 4.84 10x6/uL (4.20-6.10); RDW 13.4 % (11.5-14.5); WBC 13.2 10x3/uL (4.8-10.8)
[2018-03-27 07:00] LABS: ALBUMIN 2.9 g/dL (3.4-5.0); ANION GAP 19.3 mmol/L (8-16); BILIRUBIN - TOTAL 0.95 mg/dL (0.2-1.3); CALCIUM 8.3 mg/dL (8.5-10.1); CARBON DIOXIDE 23.7 mmol/L (21.0-32.0); PHOSPHOROUS 6.4 mg/dL (2.5-4.9); PROTEIN - SERUM 6.5 g/dL (6.4-8.2); URIC ACID 10.4 mg/dL (2.6-7.2)
--- NOTE | 2018-03-27 07:00 | NUR ---
REPORT RECEVIED FROM THE OFF GOING RN. SEE ASSESSMENT IN THE PTS FLOW SHEET. PT A&OX4 WITH A GARRBLED MUBBLED SPEACH (BASELINE). PT SINUS TACH ON THE MONITOR. 4L VIA NC. RIGHT INFUSAPORT NOTED WITH PROCALAMINE AT 50ML/H AND NS AT 40ML/H. NO FC AT THIS TIME. NO C/O PAIN AT THIS TIME. PT NPO. CALL LIGHT IN REACH. WILL CONT POC.
[2018-03-27 07:07] LABS: CREATININE - SERUM 4.7 mg/dL (0.6-1.3)
[2018-03-27 07:09] LABS: INR 1.05 (0.85-1.17); PROTIME 13.2 SECONDS (11.6-15.0)
--- NOTE | 2018-03-27 07:51 | NUR ---
SURGERY CALLED AND STATED TO PRE OP PT FOR FC INSERTION. PRE OP MEDS. SEE MAR.
--- NOTE | 2018-03-27 08:10 | NUR ---
PT LEFT WITH OR TEAM TO THE OR FOR FC PLACEMENT. LEFT IN A STABLE CONDTION.
--- NOTE | 2018-03-27 09:42 | NUR ---
PT ARRIVED BACK IN THE UNIT. HOOKED TO ICU MONITORS. PT DROWSEY. FC IN PLACE WITH RED TINGED URINE. VSS CALL LIGHT IN REACH. WILL CONT POC/MONITOR.
--- NOTE | 2018-03-27 10:35 | NUR ---
DR ALFORD AT THE PTS BEDSIDE.
--- NOTE | 2018-03-27 10:53 | NUR ---
PT LEFT WITH IR FOR THOROCENTESIS.
--- NOTE | 2018-03-27 11:20 | NUR ---
PT BACK FROM IR. WAS TOLD THE PT HAD ABOUT 1200 ML OF FLUID REMOVED. PT RECIEVED NO SEDATED OTHER THAN LOCAL. PT HOOKED TO ICU MONITORS. VSS. DRESSING TO RIGHT LATERAL CHEST C/D/I. PT DENIES PAIN. PO FLUIDS PROVIDED FOR THE PT. NO DYSPAGIA NOTED. WILL CONT POC.
--- NOTE | 2018-03-27 11:33 | OP ---
PATIENT NAME: ANTHONY KASPER MEDICAL RECORD: [id number] :34 LOCATION:.[facility] D.2314 ADMISSION DATE:03/15/18 SURGEON: ANTHONY SPEARS MD DATE OF OPERATION: 03/27/2018 SURGEON: Anthony Spears MD CLAY MINER: Local anesthetic by Josr Carroll CRNA PROCEDURES: Cystoscopy, insertion of a Irvin catheter over a guidewire. 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 DIAGNOSIS: Urinary retention, inability to be catheterized. BLOOD LOSS: None. CLINICAL HISTORY: This is an 87-year-old male, who is in the intensive care unit. He has pulmonary edema as well as a right pleural effusion. Attempts to insert a Irvin catheter in the ICU were unsuccessful. They experience a lot of bleeding. The catheter was minimally draining. Finally, last night, they removed the catheter entirely. I saw him in consultation yesterday. However, the OR was not available until this morning and we scheduled him to be done this morning. DESCRIPTION OF PROCEDURE: He was brought to the operating room in his stretcher. We decided to perform the procedure on his stretcher. He was prepped and draped. Lidocaine jelly was inserted into the urethra. A flexible cystoscope was used for visualization. Penile urethra was normal. In the prostatic urethra, there was quite a lot of bleeding from a false passage in the prostatic urethra. I chose the true lumen, which was actually the more anterior opening. We got into the bladder. A Sensor wire was then inserted through the scope into the bladder. The scope was then removed, leaving the wire in place. A 16-Tristanian catawba tip catheter was then inserted over the wire into the bladder. Once the catheter was fully into the bladder, the Irvin balloon was inflated. We then removed the wire entirely. The catheter was put to bag drainage. The patient will be going back to the intensive care unit. He has a planned thoracentesis on the right side today. TRANSINT:[id number] Voice Confirmation ID: [id number] DOCUMENT ID: [id number] ANTHONY SPEARS MD at 1133 CC: [id number] DICTATION DATE: 03/27/18925 DONOR CENTER TECHNICIAN: 03/27/18 1059 ADM IN [place] [id number] [place] [address]
--- NOTE | 2018-03-27 13:00 | NUR ---
DR DELCID AT THE PTS BEDSIDE. SHE INCRASED NS TO 80ML/H
--- NOTE | 2018-03-27 15:51 | NUR ---
PT WAS ATTEPTING TO CLIMB OOB. PT ASSISTED BACK INTO BED. PT CONFUSED. DRIED BLOOD ON THE PTS FINGERS. DRIED BLOOD NOTED BETWEEN THE PTS THIGHS AND SCANT AMOUNT OF BLOOD COMING FOR THE TIP ON THE PTS PENIS. BLOODY URINE STILL NOTED IN THE FC. PT ALSO HAD A SMALL BM. PT CLEANED AND LINENS CHANGED. PT NOW CALM AND COORPERATIVE. CALL LIGHT IN REACH. WILL CONT POC.
[2018-03-27 16:41] LABS: PROTEIN - BODY FLUID 4.1 G/DL
--- NOTE | 2018-03-27 17:04 | MORECARE ---
CASE MANAGEMENT DISCHARGE SUMMARY PATIENT: DOV KASPER UNIT: [id number] ADM DATE: 03/15/18 AGE: 87 : 32 SEX: M ROOM/BED: D.2314 AUTHOR: LIZET,DOC PHYSICIAN: REFERRING PHYSICIAN: HERBIE ALFORD MD DATE OF SERVICE: 03/27/18 Discharge Plan Patient Name: DOV KASPER Facility: [facility]:[place] : 1930 Planned Disposition: Anticipated Discharge Date: Discharge Date: Expected LOS: Initial Reviewer: [email or web address] Initial Review Date: 03/15/2018 Generated: 03/27/18 6:04 pm Comments DCP- Discharge Planning Updated by [email or web address]: Taina Lala on 03/16/18 11:[address] Spoke with patient and family concerning discharge plans. PT recommends discharge with home health with 2 wheeled walker. He would like walker from [facility] and ÁNGEL for [facility] signed. I called and spoke to Kayla at [facility] and clinical faxed. CM will continue to follow and assist with discharge planning/needs. DCP- Discharge Planning Updated by [email or web address]: Romelia Allen on 03/15/18 1:[address] CM met with patient/ in ER for dc needs/plans. Patient gives permission to speak with . Patient is [place], wears glasses. PCP: Dr. Badillo. Pharmacy: Pharmacy. HHS: None. Lives in his home with , Ledy Kasper. Spouse states patient is having great difficulty walking and she is afraid to assist, due to chance of falling. DME: Home O2 with portable tank at bedside. Provider is [facility]. Patient would benefit use of WALKER upon discharge. Emergency contact: Ledy Kasper (spouse) [phone], Zac Kasper (son) [phone]. Patient was released from the hospital this past on antibiotic therapy. Spouse states patient needs REHAB or HHS upon discharge as he has been unable to be independent. CM will assist with dc needs/plans PRN. Romelia Allen RN, CM DCPIA - Discharge Planning Initial Assessment Updated by [id number]: Romelia Allen on 03/15/18 1:49 pm * Is the patient Alert and Oriented? Yes * How many steps to enter\exit or inside your home? 5 w/rails * PCP Dr. Badillo * Pharmacy [facility] * Preadmission Environment Home with Family * ADLs Partial Dependent * Equipment Oxygen * Other Equipment Portable, Home O2 * List name and contact numbers for known caregivers / representatives who currently or will assist patient after discharge: [facility] * Verbal permission to speak to the caregivers and representatives has been obtained from the patient. Yes * Community resources currently utilized None * Please name any agencies selected above. NA Would benefit HHS, Rehab, Nursing/Rehab * Additional services required to return to the preadmission environment? Yes * Can the patient safely return to the preadmission environment? No * Has this patient been hospitalized within the prior 30 days at any hospital? Yes Last DP export: 03/16/18 11:18 a Patient Name: DOV KASPER Page [id number] at 1704 All edits/amendments must be made on the electronic document DICTATION DATE: 03/27/181702 DESIGNATED BROKER: ANNE 03/27/181702 RPT#: [id number] DC DATE: STATUS: ADM IN [facility] [address] [place] [address] END OF REPORT
[2018-03-27 17:58] LABS: MACROPHAGES BF 9 %; MESOTHELIALS BF 3 %; NEUT - BF 13 %
--- NOTE | 2018-03-27 19:15 | NUR ---
SHIFT ASSESSMENT COMPLETE. PT IS CONFUSED, PULLING AT HIS VELASQUEZ CATH AND TRYING TO GET OOB. HE STATES THAT HE THINKS THERE ARE PEOPLE AROUND HIM AND THAT HE "NEEDS TO GO." REORIENTED HIM. HE WAS ABLE TO REPEAT THAT HE WAS AT [facility] IN THE ICU AND WHY HE WAS HERE. PERRLA, 3 MM, BRISK REACTION TO LIGHT. RR EVEN AND UNLABORED, DIMINISHED LUNG SOUNDS THROUGHOUT ALL LOBES, 4 L/MIN VIA NC ON, O2 SAT 98%. S1S2 AUDIBLE, NSR SHOWING ON MONITOR. TIGHT PARAMETERS SET. R FLANK BANDAID NOTED FROM THORACENTESIS INCISION, CDI. OLD SCARS PRESENT MIDLINE STERNUM. R UPPER CHEST PORT INFUSING PROCAL @ 50 ML/HR AND NS @ 80 ML/HR, DRESSING CDI, DATED 03/26/18. VELASQUEZ CATH INTACT, HEMATURIA NOTED. RADIAL AND PEDAL PULSES PALP. CALL LIGHT IN REACH, BED ALARM ON, NON-SKID SOCKS ON. PT IS IN SIGHT OF NURSE'S STATION. WILL CONT TO MONITOR CLOSELY.
--- NOTE | 2018-03-27 19:40 | NUR ---
PAGED DR. ALFORD DUE TO INCREASED HALLUCINATIONS. WILL AWAIT RESPONSE.
--- NOTE | 2018-03-27 19:42 | NUR ---
CHEIKH SMIHT APN STATED THAT SHE WOULD HAVE DR. ALFORD CALL DIRECTLY.
--- NOTE | 2018-03-27 19:45 | NUR ---
SPOKE WITH DR. ALFORD. 5 MG GEODON IM [id number] ORDERED. WILL CONT WITH POC.
--- NOTE | 2018-03-27 21:00 | NUR ---
PM MEDS TAKEN WITHOUT DIFFICULTY. VSS. PT IS CONFUSED OF PLACE BUT ABLE TO ANSWER ALL OTHER ORIENTATION QUESTIONS APPROPRIATELY. BED ALARM ON. CALL LIGHT IN REACH. WILL CONT TO MONITOR.
--- NOTE | 2018-03-27 23:00 | NUR ---
REASSESSMENT COMPLETE. PT REMAINS CONFUSED. REORIENTED. REPOSITIONED FOR COMFORT. NO CHANGES IN PT CONDITION. VSS. CALL LIGHT IN REACH, BED IN LOWEST POSITION. WILL CONT TO MONITOR CLOSELY.
[2018-03-28] VITALS (19 sets, daily range): BP systolic 98–137; BP diastolic 57–99
--- NOTE | 2018-03-28 01:00 | NUR ---
PT RESTING WITH NO SIGNS OF ACUTE DISTRESS NOTED. VSS. WILL CONT TO MONITOR CLOSELY.
--- NOTE | 2018-03-28 01:55 | NUR ---
ACCESSED PORT VIA DOCUMENT CONTROL ASSOCIATE. REDRESSED, DATED AND LABELED.
--- NOTE | 2018-03-28 03:00 | NUR ---
REASSESSMENT COMPLETE. COMPLETE LINEN CHANGE PROVIDED. PT TOLERATED TURNING WELL. HE IS STILL CONFUSED AT THIS TIME. VSS. REORIENTED. CALL LIGHT IN REACH, BED IN LOEST POSITION. BED ALARM ON.
[2018-03-28 04:31] LABS: BASOPHILS 0 % (0-2); EOSINOPHILS 1.8 % (0-7); HEMATOCRIT 39.3 % (42.0-54.0); HEMOGLOBIN 13.2 g/dL (13.5-17.5); IMMATURE GRANULOCYTES 0.3 % (0-5); LYMPHOCYTES 8.1 % (15-50); MCH 30.7 pg (26.0-34.0); MCHC 33.6 g/dL (31.0-37.0); MONOCYTES 0.4 % (2-11); NEUTROPHILS 89.4 % (40-80)
[2018-03-28 04:32] LABS: MCV 91.5 fL (80.0-100.0); PLATELET COUNT 98 10x3/uL (130-400); WBC 6.8 10x3/uL (4.8-10.8)
--- NOTE | 2018-03-28 05:00 | NUR ---
PT RESTING PEACEFULLY AT THIS TIME. VSS. WILL CONT TO MONITOR.
[2018-03-28 05:01] LABS: ALBUMIN 2.5 g/dL (3.4-5.0); ANION GAP 13.3 mmol/L (8-16); BILIRUBIN - TOTAL 1.55 mg/dL (0.2-1.3); CALCIUM 7.7 mg/dL (8.5-10.1); CARBON DIOXIDE 23.3 mmol/L (21.0-32.0); POTASSIUM - SERUM 4.6 mmol/L (3.5-5.1); PROTEIN - SERUM 5.6 g/dL (6.4-8.2)
[2018-03-28 05:13] LABS: CREATININE - SERUM 1.9 mg/dL (0.6-1.3)
--- NOTE | 2018-03-28 07:00 | NUR ---
REPORT RECEVIED FROM THE OFF GOING RN. SEE ASSESSMENT IN THE PTS FLOW SHEET. PT A&OX3. HE STATED THAT HE WAS IN THE HOSPITAL AND I REMINDED HIM THAT HE WAS BEING TREATED FOR LUNG CANCER AND A PLUREAL EFFUSION AND HE STATED "THATS RIGHT" PT ON 4L VIA NC. O2 AT 100% O2 DECREASED. WILL TRY TO WEEN OFF O2. RIGHT UPPER CHEST INFUAPORT NOTED. PATENT. DRESSING C/D/I. SEE IV FLUIDS IN FLOW SHEET. DRESSING TO RIGHT LATERAL CHEST C/D/I. FC NOTED. CLEAR, YELLOW URINE WITH SMALL SCANT BLOOD CLOTS NOTED. PT DENIES SOB/PAIN. VSS CALL LIGHT IN REACH. WILL CONT POC.
--- NOTE | 2018-03-28 08:00 | NUR ---
SON AT THE PTS BEDSIDE. PTS SON PROVIDED HIM WITH A [employer] BISCUIT. PT ATE ALL OF THE BISCUIT AND DRANK SOME MILK AND JUICE FROM THE HOSPITAL PROVIDED BREAKFAST TRAY BUT DID NOT EAT ANY OF THE HOSPITAL TRAY. PT DENIES ANY NEEDS AT THIS TIME. CALL LIGHT IN REACH. WILL CONT POC.
--- NOTE | 2018-03-28 09:04 | NUR ---
DR DELCID AT THE PTS BEDSIDE AND SPOKE WITH THE PT AND THE SON. NO NEW ORDERS AT THIS TIME.
--- NOTE | 2018-03-28 09:32 | NUR ---
NUTRITION F//U CHART REVIEWED. PER NURSING NOTE PT TOLERATING DIET. CONTINUES PROCALAMINE AT 50 CC/HR. RD FOLLOWING
--- NOTE | 2018-03-28 10:20 | NUR ---
O2 REMOVED. PT ON RA. O2 SAT 99%.
--- NOTE | 2018-03-28 11:30 | NUR ---
PT RECEIVED A BED BATH. PT ABLE TO ASSIST CLEANING HIS FACE AND HIS ARMS. PT CLEANED HID OWN DENTURES. NEW GOWN GIVEN TO THE PT. PT ASSISTED OOB AND INTO HIS BEDSIDE CHAIR. PT WEAK AND REQUIRES X1 ASSISTANCE. MEAL TRAY PROVIDED FOR THE PT. PT ATE ABOUT 40% OF HIS MEAL. WILL CONT POC.
[2018-03-28 15:19] LABS: FUNGUS STAIN Final report (())
--- NOTE | 2018-03-28 16:50 | NUR ---
PT SITTING UPRIGHT IN BEDSIDE CHAIR. FAMILY AT THE PTS BEDSIDE. DINNER TRAY PROVIDED. VSS. CALL LIGHT IN REACH. WILL CONT POC.
[2018-03-28 17:10] LABS: ACID FAST SMEAR Negative (()); AFB SPECIMEN PROCESSING Concentration (())
--- NOTE | 2018-03-28 17:41 | NUR ---
INFUSAPORT RESITED DUE TO IV OCCLUDING. ATTEMPTED TO FLUSH WITH NO SUCCESS. REACCESSED WITH SUCCESS PER POLICY. DRESSING C/D/I. CALL LIGHT IN REACH. WILL CONT POC.
--- NOTE | 2018-03-28 19:00 | NUR ---
SHIFT ASSESSMENT COMPLETE. PT IS A&O X4 WITH NO COMPLAINTS OF PAIN OR DISCOMFORT. ASSISTED PT BACK TO BED, UNSTEADY GAIT. HE IS WEARING HIS GLASSES, PERRLA, 3 MM, BRISK REACTION TO LIGHT. S1S2 AUDIBLE, NSR SHOWING ON MONITOR. RT CHEST INFUSAPORT NOTED. PROCAL INFUSING @ 50 ML/HR AND NS INFUSING @ 80 ML/HR. RR EVEN AND UNLABORED, O2 SAT 98%, ROOM AIR. RT LATERAL CHEST DRESSING CDI. ABD SOFT AND ROUND, BS ACTIVE X4, NO PAIN OR TENDERNESS NOTED. VELASQUEZ CATH INTACT DRAINING COLTON/BLOODY URINE. RADIAL AND PEDAL PULSES PALP. OLD SCARS NOTED ON STERNUM. SCDS REMOVED AND SKIN ASSESSED, WNL. CALL LIGHT IN REACH, BED IN LOWEST POSITION, BED ALARM ON. WILL CONT WITH POC.
--- NOTE | 2018-03-28 21:00 | NUR ---
PT'S DAUGHTER FROM [place] AT BEDSIDE. UPDATED HER ON PT CONDITION. ALL QUESTIONS ANSWERED. VSS. PT DENIES ANY NEEDS AT THIS TIME. PO MEDS TAKEN WITHOUT DIFFICULTY. HE STATES THAT HE ONLY WANTS TO TAKE MIRALAX ONCE DAILY IF ANY AT ALL. STATED THAT I WOULD PASS THAT INFO ALONG TO AM NURSE TO DISCUSS WITH MD. NO FURTHER NEEDS. CALL LIGHT IN REACH, BED IN LOWEST POSITION. WILL CONT WITH POC.
--- NOTE | 2018-03-28 23:00 | NUR ---
PT RESTING WITH NO SIGNS OF ACUTE DISTRESS NOTED. VSS. WILL CONT WITH POC.
[2018-03-29] VITALS (7 sets, daily range): BP systolic 108–133; BP diastolic 65–78
--- NOTE | 2018-03-29 01:00 | NUR ---
PT RESTING. CALL LIGHT IN REACH, BED IN LOWEST POSITION. VSS. WILL CONT TO MONITOR.
--- NOTE | 2018-03-29 03:00 | NUR ---
REPOSITIONED FOR COMFORT. NO NEEDS AT THIS TIME. VSS. CALL LIGHT IN REACH.
[2018-03-29 04:58] LABS: HEMATOCRIT 39.3 % (42.0-54.0); HEMOGLOBIN 13.4 g/dL (13.5-17.5); MCH 31.1 pg (26.0-34.0); MCHC 34.1 g/dL (31.0-37.0); MCV 91.2 fL (80.0-100.0); MEAN PLATELET VOLUME 10.5 fL (7.4-10.4); PLATELET COUNT 95 10x3/uL (130-400); RBC 4.31 10x6/uL (4.20-6.10); RDW 12.8 % (11.5-14.5)
[2018-03-29 05:00] LABS: WBC 4.2 10x3/uL (4.8-10.8)
--- NOTE | 2018-03-29 05:00 | NUR ---
VELASQUEZ CARE PROVIDED. HE DENIES ANY NEEDS AT THIS TIME. WILL CONT WITH POC.
[2018-03-29 05:01] LABS: ALBUMIN 2.6 g/dL (3.4-5.0); ANION GAP 13.1 mmol/L (8-16); BILIRUBIN - TOTAL 0.94 mg/dL (0.2-1.3); CALCIUM 7.8 mg/dL (8.5-10.1); CARBON DIOXIDE 23.6 mmol/L (21.0-32.0); MAGNESIUM - SERUM 2.3 mg/dL (1.8-2.4); POTASSIUM - SERUM 4.7 mmol/L (3.5-5.1); PROTEIN - SERUM 5.9 g/dL (6.4-8.2)
[2018-03-29 05:07] LABS: CREATININE - SERUM 1.4 mg/dL (0.6-1.3)
[2018-03-29 05:37] LABS: BASOPHILS 1 % (0-2); EOSINOPHILS 3 % (0-7); LYMPHOCYTES 21 % (15-50); MONOCYTES 1 % (2-11); NEUTROPHILS 74 % (40-80)
[2018-03-29 05:38] LABS: PLATELET ESTIMATE DECREASED
--- NOTE | 2018-03-29 07:00 | NUR ---
SLEEPING, [place] TO VERBAL STIMULI, CONFUSED WITH GARBLAED SPEECH, O2 VIA RA, VSS, DENIES PAIN, REPOSITIONED UP AND TO BACK, ASSESSMENT COMPLETED PER FLOWSHEET, CALL LIGHT IN REACH, AWAITING BREAKFAST, NO OTHER NEEDS AT THIS TIME
--- NOTE | 2018-03-29 08:00 | NUR ---
BREAKFAST TRAY AT BEDSIDE, ASSIST WITH SET, DAUGHTER AT BEDSIDE ASSISTED WITH MEAL
--- NOTE | 2018-03-29 09:15 | NUR ---
MORNING MEDS GIVEN PER APR FLOWSHEET
--- NOTE | 2018-03-29 11:00 | NUR ---
RESTING WATCHING WITH NO SIGN OF DISTRESS, VSS, DENIES PAIN, CALL LIGHT IN REACH, NO ACUTE CHANGE FROM PREVIOUS ASSESSMENT
--- NOTE | 2018-03-29 13:03 | NUR ---
RECEIVED REPORT FROM TAPAN IN ICU, ASSUME CARE OF PATIENT
[2018-03-30] VITALS: BP 122/68
[2018-03-30 04:00] VITALS: BP 133/72
--- NOTE | 2018-03-30 04:55 | NUR ---
PT PULLED OUT TINEO NEEDLE FROM SITE AND NEW ONE WAS PLACED WITHOUT PROBLEM.
[2018-03-30 06:04] LABS: BASOPHILS 0.2 % (0-2); EOSINOPHILS 1.5 % (0-7); HEMOGLOBIN 12.9 g/dL (13.5-17.5); LYMPHOCYTES 17.7 % (15-50); MCH 30.6 pg (26.0-34.0); MCHC 33.9 g/dL (31.0-37.0); MEAN PLATELET VOLUME 9.9 fL (7.4-10.4); MONOCYTES 0.5 % (2-11); NEUTROPHILS 79.1 % (40-80); RBC 4.22 10x6/uL (4.20-6.10); RDW 12.8 % (11.5-14.5); WBC 4.1 10x3/uL (4.8-10.8)
[2018-03-30 06:29] LABS: ALBUMIN 2.6 g/dL (3.4-5.0); ANION GAP 13.9 mmol/L (8-16); BILIRUBIN - TOTAL 0.71 mg/dL (0.2-1.3); CALCIUM 7.6 mg/dL (8.5-10.1); CARBON DIOXIDE 22.4 mmol/L (21.0-32.0); CREATININE - SERUM 1.1 mg/dL (0.6-1.3); POTASSIUM - SERUM 4.3 mmol/L (3.5-5.1); PROTEIN - SERUM 5.7 g/dL (6.4-8.2)
[2018-03-30 06:41] LABS: PLATELET COUNT 75 10x3/uL (130-400)
[2018-03-30 08:25] VITALS: BP 133/67
--- NOTE | 2018-03-30 10:06 | NUR ---
PT RESTING IN BED. NO SIGNS OF DISTRESS. IV TO RIGHT CHEST PORT PATENT NO REDNESS OR TENDERNESS. HAS VELASQUEZ NO KINKS PATENT. HAS DRESSING TO CHEST AND BACK CLEAN AND INTACT. DENIES ANY FURTHER NEED AT THIS TIME. BED LOW POSITION. CALL LIGHT IN REACH. FAMILY AT BEDSIDE.
[2018-03-30 12:05] VITALS: BP 121/67
--- NOTE | 2018-03-30 12:22 | MORECARE ---
CASE MANAGEMENT DISCHARGE SUMMARY PATIENT: DOV KASPER UNIT: [id number] ADM DATE: 03/15/18 AGE: 87 : 32 SEX: M ROOM/BED: D.2226 AUTHOR: LIZET,DOC PHYSICIAN: REFERRING PHYSICIAN: HERBIE ALFORD MD DATE OF SERVICE: 03/30/18 Discharge Plan Patient Name: DOV KASPER Facility: [facility]:[place] : 1930 Planned Disposition: Anticipated Discharge Date: Discharge Date: Expected LOS: Initial Reviewer: [email or web address] Initial Review Date: 03/15/2018 Generated: 03/30/18 1:22 pm Comments DCP- Discharge Planning Updated by [id number]: Taina Lala on 03/30/18 11:[address] Spoke with patient about discharge planning, his son and are in the room. Patient would like to be able to go home, but realized he will need rehab prior to discharge. He does agree to inpatient rehab at [facility]. PT/OT and Rehab screen ordered. His states they have received his walker and have taken it home. CM will continue to follow and assist with discharge planning/needs. DCP- Discharge Planning Updated by [id number]: Taina Lala on 03/16/18 11:[address] Spoke with patient and family concerning discharge plans. PT recommends discharge with home health with 2 wheeled walker. He would like walker from [facility] and ÁNGEL for [facility] signed. I called and spoke to Kayla at [facility] and clinical faxed. CM will continue to follow and assist with discharge planning/needs. DCP- Discharge Planning Updated by [id number]: Romelia Allen on 03/15/18 1:[address] CM met with patient/ in ER for dc needs/plans. Patient gives permission to speak with . Patient is [place], wears glasses. PCP: Dr. Badillo. Pharmacy: Pharmacy. HHS: None. Lives in his home with , Ledy Kasper. Spouse states patient is having great difficulty walking and she is afraid to assist, due to chance of falling. DME: Home O2 with portable tank at bedside. Provider is [facility]. Patient would benefit use of WALKER upon discharge. Emergency contact: Ledy Kasper (spouse) [phone], Zac Kasper (son) [phone]. Patient was released from the hospital this past on antibiotic therapy. Spouse states patient needs REHAB or HHS upon discharge as he has been unable to be independent. CM will assist with dc needs/plans PRN. Romelia Allen RN, CM DCPIA - Discharge Planning Initial Assessment Updated by [id number]: Romelia Allen on 03/15/18 1:49 pm * Is the patient Alert and Oriented? Yes * How many steps to enter\exit or inside your home? 5 w/rails * PCP Dr. Badillo * Pharmacy [facility] * Preadmission Environment Home with Family * ADLs Partial Dependent * Equipment Oxygen * Other Equipment Portable, Home O2 * List name and contact numbers for known caregivers / representatives who currently or will assist patient after discharge: [facility] * Verbal permission to speak to the caregivers and representatives has been obtained from the patient. Yes * Community resources currently utilized None * Please name any agencies selected above. NA Would benefit HHS, Rehab, Nursing/Rehab * Additional services required to return to the preadmission environment? Yes * Can the patient safely return to the preadmission environment? No * Has this patient been hospitalized within the prior 30 days at any hospital? Yes Last DP export: 03/27/18 4:04 p Patient Name: DOV KASPER Page [id number] at 1222 All edits/amendments must be made on the electronic document DICTATION DATE: 03/30/18 1221 DAIRY DEPARTMENT MANAGER: ANNE 03/30/18 1221 RPT#: [id number] DC DATE: STATUS: ADM IN [facility] [address] [place] [address] END OF REPORT
--- NOTE | 2018-03-30 12:56 | NUR ---
Rehab Note- Acute Inpatient REhab prescreen order received. The patient has been noted too confused to participate in therapy, have been reconsulted- will follow at this time to see the patient's mobility. Thank you for this referral! Katelin Bates RN Clinical Liaison, [facility]
[2018-03-30 16:00] VITALS: BP 114/57
[2018-03-30 20:00] VITALS: BP 131/69
[2018-03-31] VITALS: BP 96/64
[2018-03-31 04:00] VITALS: BP 131/66
[2018-03-31 05:09] LABS: BASOPHILS 0.3 % (0-2); EOSINOPHILS 1.5 % (0-7); HEMOGLOBIN 13.1 g/dL (13.5-17.5); IMMATURE GRANULOCYTES 0.6 % (0-5); LYMPHOCYTES 23.5 % (15-50); MCH 31.3 pg (26.0-34.0); MCHC 34.5 g/dL (31.0-37.0); MCV 90.7 fL (80.0-100.0); MEAN PLATELET VOLUME 9.7 fL (7.4-10.4); MONOCYTES 0.6 % (2-11); NEUTROPHILS 73.5 % (40-80); PLATELET COUNT 61 10x3/uL (130-400); RBC 4.19 10x6/uL (4.20-6.10); RDW 12.6 % (11.5-14.5); WBC 3.3 10x3/uL (4.8-10.8)
[2018-03-31 05:25] LABS: CALC OSMOLALITY 282 mosm/kg (275-300); CALCIUM 7.7 mg/dL (8.5-10.1); CARBON DIOXIDE 23.5 mmol/L (21.0-32.0); CHLORIDE - SERUM 107 mmol/L (98-107); GLUCOSE 104 mg/dL (74-106); POTASSIUM - SERUM 4.5 mmol/L (3.5-5.1); SODIUM 139 mmol/L (136-145); UREA NITROGEN 27 mg/dL (7-18); eGFR NON AFRICAN AMERICAN 75 mL/min (90-120)
--- NOTE | 2018-03-31 07:54 | NUR ---
PATIENT IN BED, SKIN W/D TO TOUCH, COLOR PINK, RESP. REGULAR AND EVEN AT 18.VELASQUEZ INTACT AND DRAINING BLOODY URINE. NORMAL SALINE INFUSING AT 50 MLS/HR AND PROCALAMINE INFUSING AT 50 VIA RIGHT CHEST, DENIES ANY C/O PAM WHEN ASKED. PATIENT ALERT WITH CONFUSION NOTED. C/L WITHIN REACH AND SR'S UP X'S 2.
[2018-03-31 13:20] VITALS: BP 117/66
[2018-03-31 17:21] VITALS: BP 120/68
--- NOTE | 2018-03-31 17:28 | NUR ---
PATIENT IN BED WITH VISITORS AT BEDSIDE, DENIED ANY C/O PAIN OR DISCOMFORT WHEN ASKED. C/L WITHIN REACH AND SR'S UP X'S 2.
--- NOTE | 2018-03-31 18:14 | NUR ---
PATIENT HAD SMALL FOMED STOOL, CLEANED AND REPOSITIONED. FAMILY AT BEDSIDE.
--- NOTE | 2018-03-31 19:00 | NUR ---
REPORT RECEIVED AND CARE OF PT ASSUMED. PT LYING IN LOW RAMACHANDRAN'S POSITION WITH EYES CLOSED. CONTINUOUS O2 IN USE AND READING 94% ON ROOM AIR AT THIS ASSESSMENT. RIGHT IP PATENT WITH NS INFUSING AT 50 ML / HR AND PROCAL INFUSING AT 50 ML / HR. VELASQUEZ CATHETER DRAINING TO GRAVITY WITH DARK YELLOW URINE IN COLLECTION BAG. WILL MONITOR FOR NEEDS. BED ALARM TURNED ON FOR SAFETY.
[2018-03-31 19:56] VITALS: BP 118/65
--- NOTE | 2018-03-31 21:10 | NUR ---
HS MEDICATIONS GIVEN. WILL CONTINUE TO MONITOR FOR NEEDS.
[2018-04-01] VITALS: BP 129/74
[2018-04-01 04:00] VITALS: BP 138/68
[2018-04-01 06:32] LABS: BASOPHILS 0.6 % (0-2); EOSINOPHILS 2.2 % (0-7); HEMATOCRIT 38.2 % (42.0-54.0); HEMOGLOBIN 12.9 g/dL (13.5-17.5); IMMATURE GRANULOCYTES 0.6 % (0-5); LYMPHOCYTES 40.4 % (15-50); MCH 30.4 pg (26.0-34.0); MCHC 33.8 g/dL (31.0-37.0); MCV 90.1 fL (80.0-100.0); MEAN PLATELET VOLUME 10.5 fL (7.4-10.4); MONOCYTES 1.7 % (2-11); NEUTROPHILS 54.5 % (40-80); PLATELET COUNT 58 10x3/uL (130-400); RBC 4.24 10x6/uL (4.20-6.10); RDW 12.6 % (11.5-14.5)
[2018-04-01 06:38] LABS: WBC 1.8 10x3/uL (4.8-10.8)
--- NOTE | 2018-04-01 07:13 | NUR ---
PT PLACED ON REVERSE ISOLATION PER PROTOCOL FOR WBC OF 1.8 THIS AM.
[2018-04-01 07:19] LABS: CALC OSMOLALITY 279 mosm/kg (275-300); CALCIUM 7.7 mg/dL (8.5-10.1); CARBON DIOXIDE 22.5 mmol/L (21.0-32.0); CHLORIDE - SERUM 105 mmol/L (98-107); GLUCOSE 107 mg/dL (74-106); POTASSIUM - SERUM 4.5 mmol/L (3.5-5.1); SODIUM 137 mmol/L (136-145); UREA NITROGEN 28 mg/dL (7-18); eGFR NON AFRICAN AMERICAN 75 mL/min (90-120)
[2018-04-01 08:32] VITALS: BP 148/88
--- NOTE | 2018-04-01 10:56 | NUR ---
BED BATH GIVEN AND COMPLETE LINEN CHANGE DONE, SKIN W/D TO TOUCH, COLOR PINK, RESP. REGULAR AND EVEN AT 18. VELASQUEZ PATENT AND DAINING COLTON URINE. FAMILY AT BEDSIDE. C/L WITHIN REACH AND SR'S UP X'S 2.
--- NOTE | 2018-04-01 18:06 | NUR ---
RESPIRATIONS EVEN AND UNLABORED. DENIES ANY PAIN OR DISCOMFORT AT THIS TIME. CAP. REFILL < 3 SEC.IVF INFUSING VIA RT. MEDIPORT AT PRESCRIBED RATE., CONTINUED ISOLATION WITH VELASQUEZ CATH INTACT.
--- NOTE | 2018-04-01 19:00 | NUR ---
REPORT RECEIVED AND CARE OF PT ASSUMED. PT LYING IN LOW RAMACHANDRAN'S POSITION VISITING WITH FAMILY MEMBER. RIGHT IP PATENT WITH NS INFUSING AT 25 ML / HR. AND PROCAL INFUSING AT 50 ML / HR. VELASQUEZ CATHETER DRAINING TO GRAVITY WITH COLTON URINE IN COLLECTION BAG. WILL MONITOR FOR NEEDS. CALL LIGHT WITHIN REACH.
[2018-04-01 19:41] LABS: APPEARANCE HAZY (CLEAR); BILIRUBIN NEGATIVE (NEGATIVE); COLOR AMBER (YELLOW); GLUCOSE NEGATIVE (NEGATIVE); KETONE NEGATIVE (NEGATIVE); NITRITE NEGATIVE (NEGATIVE); PROTEIN 1+ mg/dL (NEGATIVE); UROBILINOGEN NORMAL (NORMAL)
--- NOTE | 2018-04-01 19:41 | NUR ---
COLLECTED URINE FROM VELASQUEZ TUBING FOR ORDERED STUDIES AND DELIVERED TO LAB.
[2018-04-01 19:42] LABS: RED CELLS - URINE >50 /hpf (0-5); WHITE CELLS - URINE 0-5 /hpf (0-5)
[2018-04-01 19:43] LABS: EPITHELIAL CELLS 0-5 /hpf (0-5)
[2018-04-01 19:44] LABS: BACTERIA MODERATE /hpf (NONE SEEN)
[2018-04-01 20:00] VITALS: BP 124/69
[2018-04-02 04:00] VITALS: BP 129/68
[2018-04-02 06:28] LABS: HEMATOCRIT 36.9 % (42.0-54.0); HEMOGLOBIN 12.4 g/dL (13.5-17.5); MCH 30.3 pg (26.0-34.0); MCHC 33.6 g/dL (31.0-37.0); MCV 90.2 fL (80.0-100.0); MEAN PLATELET VOLUME 10.1 fL (7.4-10.4); RBC 4.09 10x6/uL (4.20-6.10); RDW 12.5 % (11.5-14.5)
[2018-04-02 06:45] LABS: CALC OSMOLALITY 285 mosm/kg (275-300); CARBON DIOXIDE 24.5 mmol/L (21.0-32.0); CHLORIDE - SERUM 107 mmol/L (98-107); GLUCOSE 112 mg/dL (74-106); POTASSIUM - SERUM 4.5 mmol/L (3.5-5.1); SODIUM 140 mmol/L (136-145); UREA NITROGEN 28 mg/dL (7-18); eGFR NON AFRICAN AMERICAN 75 mL/min (90-120)
[2018-04-02 06:51] LABS: PLATELET COUNT 47 10x3/uL (130-400); WBC 0.9 10x3/uL (4.8-10.8)
--- NOTE | 2018-04-02 07:45 | NUR ---
PATIENT RESTING IN BED WITH NO DISTRESS. DENIES NEEDS, ORIENTED AT THIS TIME. PATIENT IN REVERSE ISOLATION FOR WBC 0.9. PROCAL AND NS INFUSING TO RIGHT PORT, DRESSING INTACT. VELASQUEZ CATH PATENT WITH DARK YELLOW URINE TO BEDSIDE DRAINAGE. CL IN REACH
[2018-04-02 08:25] VITALS: BP 130/79
[2018-04-02 08:26] LABS: ANISOCYTOSIS OCC; EOSINOPHILS 4 % (0-7); LYMPHOCYTES 52 % (15-50); MONOCYTES 14 % (2-11); NEUTROPHILS 30 % (40-80); PLATELET ESTIMATE DECREASED; ROULEAUX OCC
[2018-04-02 13:31] VITALS: BP 120/66
--- NOTE | 2018-04-02 14:31 | NUR ---
NUTRITION F//U PT REMAINS IN ISOLATION. CALORIE COUNT STARTED OVER WEEKEND BUT RESULTS SKETCHY. REPORTS SHE IS PLEASED WITH RECENT PT PO INTAKE. WILL HOPEFULLY HAVE CALORIE COUNT INFO FROM TODAY. RD FOLLOWING
--- NOTE | 2018-04-02 15:07 | NUR ---
OT NOTE: PT VERY AGITATED AND FRUSTRATED IN AM. DID NOT UNDERSTAND WHY HE WAS NOT ABLE TO GO TO REHAB.. ATTEMPTED TO EXPLAIN BUT PT WAS NOT UNDERSTANDING. HE IS PHYSICALLY DOING WELL. BED MOB WITH MIN/SPV; SIT TO STAND WITH USE OF WALKER AND MIN ASSIST; AMB IN ROOM AND HALLWAY WITH CGA AND USE OF RW. TOLERATED SITTING UP IN CHAIR GREATER THAN 2 HRS. SIMPLE GROOMING TASKS WITH SET UP; ABLE TO JARAD SOCKS WITH SET UP ISHMAEL RIDLEY, OTR/L
[2018-04-02 17:05] VITALS: BP 126/58
--- NOTE | 2018-04-02 17:15 | NUR ---
INITIATED BLADDER TRAINING DUE TO PATIENT POSSIBLY TRANSFERING TO REHAB
--- NOTE | 2018-04-02 18:33 | NUR ---
OT NOTE: PT COMPLETED BUE AROM FOR INCREASED AX TOLERANCE. PT COMPLETED SIDE ROLLING WITH SBA. PT COMPLETED SIMPLE HYGIENE TASK WITH SET UP. THANK YOU, YAYO HAM
[2018-04-02 20:00] VITALS: BP 119/59
--- NOTE | 2018-04-02 20:00 | NUR ---
PT IS RESTING IN BED WITH EYES OPEN. ALERT AND ORIENTED X 3. DENIES ACUTE DISCOMFORT AT THIS TIME. PT STATES HE HAS NO NEEDS AND HOPES HE WONT HAVE ANY ALL NIGHT. REVERSE ISOLATION PRECAUTIONS OBSERVED. RIGHT CHEST PORT NOTED. IVS INFUSING WITHOUT DIFFICULTY. VELASQUEZ PATENT AND DRAINING TO A GRAVITY BAG. SR'S ARE UP X 2 IN BED. CALL LIGHT AND BEDSIDE TABLE ARE WITHIN EASY REACH.
--- NOTE | 2018-04-02 22:16 | NUR ---
PT IS RESTING QUIETLY IN BED WITH EYES CLOSED. RESPS ARE EVEN AND UNLABORED. NO ACUTE DISTRESS NOTED.
--- NOTE | 2018-04-03 00:51 | NUR ---
RESTING IN BED WITH EYES CLOSED.
--- NOTE | 2018-04-03 03:21 | NUR ---
PT RESTING QUIETLY IN BED WITH EYES CLOSED. NO DISTRESS NOTED.
[2018-04-03 04:00] VITALS: BP 133/72
[2018-04-03 06:18] LABS: CALCIUM 7.9 mg/dL (8.5-10.1); CARBON DIOXIDE 24.3 mmol/L (21.0-32.0); CREATININE - SERUM 1.1 mg/dL (0.6-1.3); POTASSIUM - SERUM 4.3 mmol/L (3.5-5.1)
[2018-04-03 06:26] LABS: BASOPHILS 3.6 % (0-2); EOSINOPHILS 3.6 % (0-7); HEMATOCRIT 36.2 % (42.0-54.0); HEMOGLOBIN 12.4 g/dL (13.5-17.5); LYMPHOCYTES 74.7 % (15-50); MCH 30.8 pg (26.0-34.0); MCHC 34.3 g/dL (31.0-37.0); MCV 89.8 fL (80.0-100.0); MEAN PLATELET VOLUME 10.2 fL (7.4-10.4); MONOCYTES 8.4 % (2-11); NEUTROPHILS 9.7 % (40-80); RBC 4.03 10x6/uL (4.20-6.10); RDW 12.4 % (11.5-14.5)
[2018-04-03 07:01] LABS: PLATELET COUNT 41 10x3/uL (130-400); WBC 0.8 10x3/uL (4.8-10.8)
[2018-04-03 07:41] VITALS: BP 130/64
[2018-04-03 08:30] VITALS: BP 130/64
--- NOTE | 2018-04-03 09:06 | NUR ---
CALORIE COUNT 04/02/18 KCALGM PROTEIN [id number]
--- NOTE | 2018-04-03 11:02 | NUR ---
Rehab Note- Continue to follow- doing well with PT. Neutropeinc- WBC 0.8, spoke with NEISHA Her concerning patient & dc plans. Thank you for this referral! Katelin Bates RN Clinical Liaison, [facility] Rehab
[2018-04-03 12:30] VITALS: BP 120/66
--- NOTE | 2018-04-03 12:40 | NUR ---
OT NOTE: ABLE TO JARAD SOCKS AND GOWN WITH SET UP; TRANSFERS WITH USE OF RW AND MIN/CGA. AMB GREATER THAN 150' THROUGH HALLWAY. TOLERATED SITTING UP IN CHAIR FOR GREATER THAN 1 HR. ISHMAEL RIDLEY, OTR/L
--- NOTE | 2018-04-03 17:32 | NUR ---
OT NOTE: PT COMPLETED UE AROM EXS. PT COMPLETED BED MOB WITH CGA/MIN A. THANK YOU, YAYO HAM
[2018-04-03 18:05] VITALS: BP 105/70
--- NOTE | 2018-04-03 19:55 | NUR ---
PT RESTING IN BED. ALERT AND ORINTED. NO SIGNS OF DISTRESS. BREATHING EVEN AND UNLABORED. PT STATES NO PROBLEMS AT THIS TIME. SKIN CLEAN DRY AND INTACT. IV SITE RT CHEST PORT DRESSING CLEAN DRY AND INTACT. NO SIGNS OF INFECTION. BOWEL SOUNDS ACTIVE. VELASQUEZ IN PLACE. DOING BLADDER TRAINNING. VELASQUEZ IS CLAMPED OFF PT KNOWES TO CALL IF THE HIS FEELS HE NEEDS TO PEE. WILL FALLOW UP. NO LOWER LEG SWELLING PRESENT. BED LOWERED AND LOCKED. CALL LIGHT IN REACH. WILL CONTINUE PLAN OF CARE.
[2018-04-03 20:53] VITALS: BP 141/70
[2018-04-04 00:34] VITALS: BP 125/65
--- NOTE | 2018-04-04 01:24 | NUR ---
resting in bed no s/s of distress call light in reach.
[2018-04-04 04:46] VITALS: BP 154/60
[2018-04-04 05:34] LABS: ANION GAP 12.2 mmol/L (8-16); CALCIUM 7.9 mg/dL (8.5-10.1); CARBON DIOXIDE 24.8 mmol/L (21.0-32.0); CREATININE - SERUM 1.2 mg/dL (0.6-1.3)
[2018-04-04 05:52] LABS: HEMATOCRIT 35.1 % (42.0-54.0); MCH 30.5 pg (26.0-34.0); MCHC 34.2 g/dL (31.0-37.0); MCV 89.3 fL (80.0-100.0); MEAN PLATELET VOLUME 9.8 fL (7.4-10.4); RBC 3.93 10x6/uL (4.20-6.10); RDW 12.1 % (11.5-14.5)
[2018-04-04 05:56] LABS: PLATELET COUNT 40 10x3/uL (130-400); WBC 0.8 10x3/uL (4.8-10.8)
[2018-04-04 07:30] LABS: EOSINOPHILS 4 % (0-7); LYMPHOCYTES 92 % (15-50); NEUTROPHILS 4 % (40-80); PLATELET ESTIMATE DECREASED; PLATELET MORPHOLOGY NORMAL PLT MORPH
--- NOTE | 2018-04-04 08:09 | NUR ---
CALORIE COUNT 04/03/18 KCALGM PROTEIN [id number] DINNERNOT RECORDED TWO MEAL [id number]
--- NOTE | 2018-04-04 08:45 | NUR ---
ASSESSMENT COMPLETE, VS STABLE. IV INTACT. NO COMPLAINTS. VELASQUEZ INTACT. CALL LIGHT WITHIN REACH.
[2018-04-04 09:07] VITALS: BP 122/65
--- NOTE | 2018-04-04 10:20 | NUR ---
PATIENT SITTING UP IN CHAIR. AT SIDE ASSISTING PATIENT IN DRESSING. NO COMPLAINTS OR SIGNS OF DISTRESS. IV INTACT. CALL LIGHT WITHIN REACH.
--- NOTE | 2018-04-04 13:02 | NUR ---
OT NOTE: ENTERED ROOM AND STATED THAT PT NEEDED TO GET ON THE BED LONG. SUGGESTED THAT WE WALK INTO THE BATHROOM AND USE THE TOILET. HAD BATHROOM FILLED WITH TABLE, CHAIR, BAGS, ETC. ALL ITEMS REMOVED AND PT WAS ASSISTED TO EDGE OF BED; ABLE TO AMB WITH WALKER AND CGA TO TOILET; TOILET HYGIENE WITH SPV; AMB IN ROOM WITH USE OF RW AND CGA. PT DID WELL HE HAD TO MANEUVER AROUND MANY OBJECTS IN ROOM. SINK HYGIENE AND SIMPLE GROOMING WITH SET UP; AMB IN HALLWAY WITH USE OF GAIT BELT, IV POLE, RW, AND MIN ASSIST. ISHMAEL RIDLEY, OTR/L
[2018-04-04 13:49] VITALS: BP 126/68
--- NOTE | 2018-04-04 13:50 | NUR ---
PATIENT SITTING UP IN BED WATCHING TV. NO COMPLAINTS AT THIS TIME. IV INTACT. CALL LIGHT WITHIN REACH.
--- NOTE | 2018-04-04 15:30 | NUR ---
PATIENT SITTING UP IN BED RESTING QUIETLY. NO COMPLAINTS. CALL LIGHT WITHIN REACH.
[2018-04-04 16:45] VITALS: BP 126/70
--- NOTE | 2018-04-04 18:17 | NUR ---
OT NOTE: PT COMPLETED BED MOB WITH CGA. PT COMPLETED SIT TO STAND WITH CGA. PT COMPLETED BUE AROM EXS. THANK YOU, YAYO HAM
--- NOTE | 2018-04-04 18:31 | NUR ---
PATIENT IN BED WITH NO COMPLAINTS OR SIGNS OF DISTRESS. IV INTACT. VELASQUEZ INTACT. CALL LIGHT WITHIN REACH.
[2018-04-04 20:00] VITALS: BP 122/62
--- NOTE | 2018-04-04 20:10 | NUR ---
PT REATING IN BED. ALERT AND ORIENTED. NO SIGNS OF DISTRESS. BREATHING EVEN AND UNLABORED. PT STATES NO PROBLEMS AT THIS TIME. RT CHEST PORT. DRESSING CHANGED. NO SIGNS OF INFECTION. BOWEL SOUNDS ACTIVE. SKIN CLEAN DRY AND INTACT. NO LOWER LEG SWELLING PRESENT. WILL CONTINUE PLAN OF CARE. CALL LIGHT IN REACH.
[2018-04-05 00:30] VITALS: BP 129/64
--- NOTE | 2018-04-05 03:11 | NUR ---
I CONCUR WITH [facility] ASSESSMENT.
[2018-04-05 05:45] VITALS: BP 130/62
[2018-04-05 06:03] LABS: HEMATOCRIT 35.7 % (42.0-54.0); HEMOGLOBIN 12.3 g/dL (13.5-17.5); LYMPHOCYTES 72.7 % (15-50); MCH 30.4 pg (26.0-34.0); MCHC 34.5 g/dL (31.0-37.0); MCV 88.4 fL (80.0-100.0); MEAN PLATELET VOLUME 9.9 fL (7.4-10.4); MONOCYTES 15.2 % (2-11); NEUTROPHILS 7.1 % (40-80); RBC 4.04 10x6/uL (4.20-6.10); RDW 12.2 % (11.5-14.5)
[2018-04-05 06:10] LABS: PLATELET COUNT 50 10x3/uL (130-400)
[2018-04-05 06:26] LABS: ALBUMIN 2.6 g/dL (3.4-5.0); ANION GAP 13.2 mmol/L (8-16); BILIRUBIN - TOTAL 0.6 mg/dL (0.2-1.3); CALCIUM 7.9 mg/dL (8.5-10.1); CARBON DIOXIDE 24.8 mmol/L (21.0-32.0); CREATININE - SERUM 1.2 mg/dL (0.6-1.3); PROTEIN - SERUM 5.5 g/dL (6.4-8.2)
--- NOTE | 2018-04-05 08:15 | NUR ---
PATIENT IN BED WITH EYES OPEN. NO COMPLAINTS OR SIGNS OF DISTRESS. IV INTACT. VELASQUEZ INTACT. CALL LIGHT WITHIN REACH.
[2018-04-05 08:21] VITALS: BP 125/63
--- NOTE | 2018-04-05 09:53 | MORECARE ---
CASE MANAGEMENT DISCHARGE SUMMARY PATIENT: DOV KASPER UNIT: [id number] ADM DATE: 03/15/18 AGE: 87 : 32 SEX: M ROOM/BED: D.2226 AUTHOR: LIZET,DOC PHYSICIAN: REFERRING PHYSICIAN: HERBIE ALFORD MD DATE OF SERVICE: 04/05/18 Discharge Plan Patient Name: DOV KASPER Facility: [facility]:[place] : 1930 Planned Disposition: Anticipated Discharge Date: Discharge Date: Expected LOS: Initial Reviewer: [email or web address] Initial Review Date: 03/15/2018 Generated: 04/05/18 10:52 am Comments DCP- Discharge Planning Updated by [email or web address]: Taina Lala on 04/05/18 8:[address] CM met with patient and his in the room to discuss discharge planning. They would like him to go home with [facility] when discharged from acute care. States he is ambulating better now with PT and is no longer wanting to go to rehab. States when Dr. Wyman states his WBC is high enough for discharge, he wants to go home with home health. CM will continue to follow and assist with discharge planning/needs. DCP- Discharge Planning Updated by [email or web address]: Taina Lala on 03/30/18 11:[address] Spoke with patient about discharge planning, his son and are in the room. Patient would like to be able to go home, but realized he will need rehab prior to discharge. He does agree to inpatient rehab at [facility]. PT/OT and Rehab screen ordered. His states they have received his walker and have taken it home. CM will continue to follow and assist with discharge planning/needs. DCP- Discharge Planning Updated by [email or web address]: Taina Lala on 03/16/18 11:[address] Spoke with patient and family concerning discharge plans. PT recommends discharge with home health with 2 wheeled walker. He would like walker from [facility] and ÁNGEL for [facility] signed. I called and spoke to Kayla at [facility] and clinical faxed. CM will continue to follow and assist with discharge planning/needs. DCP- Discharge Planning Updated by [id number]: Romelia Allen on 03/15/18 1:[address] CM met with patient/ in ER for dc needs/plans. Patient gives permission to speak with . Patient is [place], wears glasses. PCP: Dr. Badillo. Pharmacy: Pharmacy. HHS: None. Lives in his home with , Ledy Kasper. Spouse states patient is having great difficulty walking and she is afraid to assist, due to chance of falling. DME: Home O2 with portable tank at bedside. Provider is [facility]. Patient would benefit use of WALKER upon discharge. Emergency contact: Ledy Kasper (spouse) [phone], Zac Kasper (son) [phone]. Patient was released from the hospital this past on antibiotic therapy. Spouse states patient needs REHAB or HHS upon discharge as he has been unable to be independent. CM will assist with dc needs/plans PRN. Romelia Allen RN, CM DCPIA - Discharge Planning Initial Assessment Updated by [id number]: Romelia Allen on 03/15/18 1:49 pm * Is the patient Alert and Oriented? Yes * How many steps to enter\exit or inside your home? 5 w/rails * PCP Dr. Badillo * Pharmacy Pharmacy * Preadmission Environment Home with Family * ADLs Partial Dependent * Equipment Oxygen * Other Equipment Portable, Home O2 * List name and contact numbers for known caregivers / representatives who currently or will assist patient after discharge: [facility] * Verbal permission to speak to the caregivers and representatives has been obtained from the patient. Yes * Community resources currently utilized None * Please name any agencies selected above. NA Would benefit HHS, Rehab, Nursing/Rehab * Additional services required to return to the preadmission environment? Yes * Can the patient safely return to the preadmission environment? No * Has this patient been hospitalized within the prior 30 days at any hospital? Yes Last DP export: 03/30/18 11:22 am Patient Name: DOV KASPER Page [id number] at 0953 All edits/amendments must be made on the electronic document DICTATION DATE: 04/05/18951 CARDIAC CATHETERIZATION TECHNICIAN: ANNE 04/05/18951 RPT#: [id number] DC DATE: STATUS: ADM IN [facility] [address] [place] [address] END OF REPORT
[2018-04-05 11:30] VITALS: BP 122/68
--- NOTE | 2018-04-05 11:40 | NUR ---
PATIENT UP TO SHOWER PER BAKERY CLERK. NO PROBLEMS AT THIS TIME. CALL LIGHT WITHIN REACH.
--- NOTE | 2018-04-05 15:13 | NUR ---
OT NOTE: BED MOB WITH SPV; TRANSFERS WITH SPV; SIMPLE GROOMING WITH SET UP; AROM EXS FOR UE/LE. ISHMAEL RIDLEY,OTR/L
--- NOTE | 2018-04-05 15:30 | NUR ---
PATIENT IN BED WITH EYES CLOSED RESTING QUIETLY. NO COMPLAINTS OR SIGNS OF DISTRESS. CALL LIGHT WITHIN REACH.
--- NOTE | 2018-04-05 18:58 | NUR ---
PATIENT IN BED WITH IV INTACT. IV LINE WAS LOOSE AND LEAKING. GOWN AND SHEET CHANGED BY MEDIA BUYER AND RN. VELASQUEZ INTACT. FAMILY AT BEDSIDE. INFUSA PORT DRESSING CLEAN AND DRY. CHANGED BY BUSH HOG OPERATOR NURSE YESTERDAY. NO COMPLAINTS OR SIGNS OF DISTRESS. CALL LIGHT WITHIN REACH.
--- NOTE | 2018-04-05 19:55 | NUR ---
PT RESTING IN BED. ALERT AND ORIENTED. NO SIGNS OF DISTRESS. BREATHING EVEN AND UNLABORED. IV SITE RT CHEST PORT. DRESSING CLEAN DRY AND ITNACT. NO SIGNS OF INFECTION. SKIN CLEAN DRY AND INTACT. BOWEL SOUNDS ACTIVE. NO LOWER LEG SWELLING PRESENT. VELASQUEZ IN PLACE. STAT LOCK TO LT THIGH. WILL CONTINUE PLAN OF CARE. CALL LIGHT IN REACH. BED LOWERED AND LOCKED.
[2018-04-05 20:25] VITALS: BP 120/56
--- NOTE | 2018-04-05 23:08 | NUR ---
OT NOTE: PT COMPLETED BED MOB WITH MIN A. PT COMPLETED EOB SITTING WITH CGA. PT COMPLETED SIT TO STAND WITH MIN/MOD A. THANK YOU, YAYO HAM
[2018-04-06 00:14] VITALS: BP 128/60
--- NOTE | 2018-04-06 04:10 | NUR ---
AGREE W/ MRI SPECIAL PROCEDURES TECHNOLOGIST ASSESSMENT. PT W/O DISTRESS OR NEEDS. CL IN REACH, WILL CONTINUE TO MONITOR
[2018-04-06 04:16] LABS: HEMATOCRIT 35.9 % (42.0-54.0); HEMOGLOBIN 12.2 g/dL (13.5-17.5); MCH 30.3 pg (26.0-34.0); MCV 89.1 fL (80.0-100.0); MEAN PLATELET VOLUME 9.5 fL (7.4-10.4); RBC 4.03 10x6/uL (4.20-6.10); RDW 12.3 % (11.5-14.5)
[2018-04-06 04:17] LABS: PLATELET COUNT 71 10x3/uL (130-400); WBC 1.4 10x3/uL (4.8-10.8)
[2018-04-06 04:19] VITALS: BP 131/58
[2018-04-06 04:30] LABS: ALBUMIN 2.7 g/dL (3.4-5.0); ANION GAP 13.9 mmol/L (8-16); BILIRUBIN - TOTAL 0.72 mg/dL (0.2-1.3); CALCIUM 7.9 mg/dL (8.5-10.1); CREATININE - SERUM 1.3 mg/dL (0.6-1.3); POTASSIUM - SERUM 3.9 mmol/L (3.5-5.1); PROTEIN - SERUM 6.1 g/dL (6.4-8.2)
[2018-04-06 04:41] LABS: LYMPHOCYTES 95 % (15-50); NEUTROPHILS 5 % (40-80); PLATELET ESTIMATE DECREASED; PLATELET MORPHOLOGY NORMAL PLT MORPH
--- NOTE | 2018-04-06 07:15 | NUR ---
MORNING ASSESSMENT COMPLETE. PT LYING IN BED AAO X4 TO PERSON, PLACE, TIME, AND SITUATION. FAMILY MEMEBER AT BEDSIDE. DENIES NEEDS AT THIS TIME. CL IN REACH. SIDE RAILS UP X3 FOR PATEINT SAFETY
--- NOTE | 2018-04-06 09:00 | NUR ---
PT R CHEST INFUSAPORT REDNESS/SWELLING/PAIN NOTED. WILL ORDER X-RAY TO INVESTIGATE PORT.
[2018-04-06 09:07] VITALS: BP 127/63
--- NOTE | 2018-04-06 12:36 | NUR ---
NUTRITION F/U PT REMAINS IN NEUTROPENIC ISOLATION. PROCALAMINE AT 50 CC/HR. GOOD INTAKE BREAKFAST THIS AM. WILL CONTINUE TO PROVIDE DIET, MONITOR PO INTAKE. RD FOLLOWING
[2018-04-06 13:53] VITALS: BP 120/55
[2018-04-06 16:00] VITALS: BP 117/61
[2018-04-06 18:32] LABS: APPEARANCE CLEAR (CLEAR); BILIRUBIN NEGATIVE (NEGATIVE); COLOR YELLOW (YELLOW); GLUCOSE NEGATIVE (NEGATIVE); KETONE NEGATIVE (NEGATIVE); NITRITE NEGATIVE (NEGATIVE); PROTEIN 1+ mg/dL (NEGATIVE); RED CELLS - URINE 0-5 /hpf (0-5); UROBILINOGEN NORMAL (NORMAL); WHITE CELLS - URINE 0-5 /hpf (0-5)
--- NOTE | 2018-04-06 19:15 | NUR ---
RECEIVED CARE FROM DAY NURSE. LYING IN BED WITH FAMILY AT SIDE. CALL LIGHT AT SIDE. REPORTS NO NEEDS AT THIS TIME.
--- NOTE | 2018-04-06 22:04 | NUR ---
OT NOTE: PT COMPLETED BUE AROM EXS FOR INCREASED ENDURANCE. PT COMPLETED SIMPLE HYGIENE TASKS WITH SET UP TO MIN A. PT REQUIRED REST BREAKS. THANK YOU, YAYO HAM
[2018-04-07] VITALS: BP 130/58; BP 130/60
[2018-04-07 03:00] VITALS: BP 128/61
[2018-04-07 06:35] LABS: HEMATOCRIT 31.3 % (42.0-54.0); HEMOGLOBIN 10.8 g/dL (13.5-17.5); MCH 30.6 pg (26.0-34.0); MCHC 34.5 g/dL (31.0-37.0); MCV 88.7 fL (80.0-100.0); MEAN PLATELET VOLUME 9.6 fL (7.4-10.4); RBC 3.53 10x6/uL (4.20-6.10); RDW 12.6 % (11.5-14.5)
[2018-04-07 06:37] LABS: PLATELET COUNT 88 10x3/uL (130-400); WBC 6.6 10x3/uL (4.8-10.8)
[2018-04-07 06:44] LABS: ALBUMIN 2.2 g/dL (3.4-5.0); ANION GAP 15.4 mmol/L (8-16); BILIRUBIN - TOTAL 0.51 mg/dL (0.2-1.3); CARBON DIOXIDE 23.5 mmol/L (21.0-32.0); CREATININE - SERUM 1.3 mg/dL (0.6-1.3); POTASSIUM - SERUM 3.9 mmol/L (3.5-5.1); PROTEIN - SERUM 5.5 g/dL (6.4-8.2)
[2018-04-07 06:52] LABS: EOSINOPHILS 4 % (0-7); LYMPHOCYTES 10 % (15-50); MONOCYTES 6 % (2-11); NEUTROPHILS 63 % (40-80); PLATELET ESTIMATE DECREASED
--- NOTE | 2018-04-07 07:45 | NUR ---
PATIENT IN BED WITH EYES CLOSED RESTING QUIETLY. NO COMPLAINTS OR SIGNS OF DISTRESS. CALL LIGHTW ITHIN REACH.
[2018-04-07 08:37] VITALS: BP 123/63
--- NOTE | 2018-04-07 10:20 | NUR ---
PATIENT VELASQUEZ CLAMPED TO START BLADDER TRAINING AT THIS TIME.
--- NOTE | 2018-04-07 11:49 | NUR ---
PATIENT SITTING UP IN CHAIR WITH NO COMPLAINTS OR SIGNS OF DISTRESS. IV INTACT. VELASQUEZ INTACT AND CLAMPED AT THIS TIME FOR BLADDER TRAINING. FAMILY AT BEDSIDE. CALL LIGHT WITHIN REACH.
[2018-04-07 12:30] VITALS: BP 103/63
--- NOTE | 2018-04-07 14:11 | NUR ---
PATIENT STATED NOT HAVING ANY URGE TO VOID. UNCLAMPED VELASQUEZ AT THIS TIME. 150 OUT. CLAMPED BACK. EXPLAINED TO PATIENT IF HE FEELS URGE TO VOID TO LET ME KNOW. VERBALIZED UNDERSTANDING. CALL LIGHT WITHIN REACH.
[2018-04-07 16:50] VITALS: BP 118/60
--- NOTE | 2018-04-07 17:50 | NUR ---
PATIENT CATHETER UNCLAMPED. URINE CLEAR AND FLOWING. PATIENT STILL STATES NO URGE TO VOID. WILL CONTINUE BLADDER TRAINING. IV INTACT. NO COMPLAINTS. FAMILY AT BEDSIDE. CALL LIGHT WITHIN REACH.
--- NOTE | 2018-04-07 19:15 | NUR ---
RECEIVED CARE FROM DAY NURSE. SITTING UP ON BED VISITING WITH COMPANY. REPORTS NO NEEDS AT THIS TIME. CALL LIGHT AT SIDE. IV INFUSING NS AND PROCAL PER ORDER TO PATENT RIGHT IP.
--- NOTE | 2018-04-07 19:50 | NUR ---
FOLYE CLAMPED FOR BLADDER TRAINING AT THIS TIME.
[2018-04-07 20:00] VITALS: BP 136/58
[2018-04-08] VITALS: BP 128/56
--- NOTE | 2018-04-08 02:15 | NUR ---
VELASQUEZ UNCLAMPED. PT SLEEPING SO NO DESIRE VOICED FOR VOIDING EXPRESSED.
[2018-04-08 03:00] VITALS: BP 128/56
--- NOTE | 2018-04-08 03:00 | NUR ---
PT RESTING QUIETLY, EYES CLOSED. RESP UNLABORED. NO DISTRESS NOTED. AGREE WITH BALL ASSEMBLER'S ASSESSMENT, CONTINUE PLAN OF CARE.
--- NOTE | 2018-04-08 03:06 | NUR ---
CALLED TO ROOM BY PT. REPORTS HE NEEDS TO URINATE. 50 ML IN BAG POST UNCLAMPING. URINE EMPTIED FROM TUBING OF VELASQUEZ AND URINE STARTED TO FREE FLOW FROM BLADDER. PT REQUEST TO BE RECLAMPED TOLD PT WE NEED TO WAIT FOR AT LEAST ONE HOUR FOR URINE TO EMPTY FROM BLADDER.
--- NOTE | 2018-04-08 04:29 | NUR ---
CATH CLAMPED AT THIS TIME.
[2018-04-08 05:40] LABS: BASOPHILS 0.6 % (0-2); EOSINOPHILS 1.1 % (0-7); HEMATOCRIT 32.4 % (42.0-54.0); IMMATURE GRANULOCYTES 14.7 % (0-5); MCH 30.6 pg (26.0-34.0); MEAN PLATELET VOLUME 9.2 fL (7.4-10.4); NEUTROPHILS 67.6 % (40-80); PLATELET COUNT 101 10x3/uL (130-400); RDW 12.6 % (11.5-14.5)
[2018-04-08 06:03] LABS: ALBUMIN 2.2 g/dL (3.4-5.0); ANION GAP 14.4 mmol/L (8-16); BILIRUBIN - TOTAL 0.35 mg/dL (0.2-1.3); CALCIUM 8.1 mg/dL (8.5-10.1); CARBON DIOXIDE 23.5 mmol/L (21.0-32.0); CREATININE - SERUM 1.5 mg/dL (0.6-1.3); POTASSIUM - SERUM 3.9 mmol/L (3.5-5.1); PROTEIN - SERUM 5.6 g/dL (6.4-8.2)
--- NOTE | 2018-04-08 08:13 | NUR ---
PT RESTING WITH EYES CLOSED. AROUSED BY VERBAL STIMULI. [place]. UNCLAMPED FC. CLEAR YELLOW URINE DRAINING BY GRAVITY. NO S/S OF ACUTE DISTRESS. CL IN PLACE.
[2018-04-08 08:24] VITALS: BP 112/58
--- NOTE | 2018-04-08 11:03 | NUR ---
LATE ENTRY 0900.JULIA BRYANT.
[2018-04-08 12:30] VITALS: BP 110/51
[2018-04-08 16:30] VITALS: BP 124/66
--- NOTE | 2018-04-08 19:15 | NUR ---
RECEIVED CARE FROM DAY NURSE. SITTING UP ON SIDE OF BED. REPORTS NO NEEDS AT THIS TIME. CALL LIGHT AT SIDE. NS INFUSING TO PATENT RIGHT IP.
--- NOTE | 2018-04-08 19:30 | NUR ---
PT RESTING IN BED. REQUESTING URINAL. BROUGHT PT URINAL. NO S/S OF ACUTE DISTRESS,CL IN PLACE.
[2018-04-08 20:00] VITALS: BP 125/60
--- NOTE | 2018-04-08 20:00 | NUR ---
PT HAD INCONTINENT EPISODE OF STOOL. CLEANED AT THIS TIME. REPORTS HE HAS ONLY URINATED A LITTLE BIT AT THIS TIME.
--- NOTE | 2018-04-08 23:30 | NUR ---
REPORTS HE NEEDS TO URINATE BUT ONLY GO OUT 25ML. BLADDER SCAN SHOWED 713ML. IN AND OUT CATH DONE AT THIS TIME USING COTTON AGENT WITH REMOVAL OF 700ML OF URINE. PT REPORTS RELIEF OF PRESSURE IN ABDOMEN.
[2018-04-09] VITALS: BP 121/57
--- NOTE | 2018-04-09 02:10 | NUR ---
PT RESTING QUIETLY, EYES CLOSED. RESP EVEN, UNLABORED. NO DISTRESS NOTED. AGREE WITH IDENTIFIER HORSE'S ASSESSMENT, CONTINUE PLAN OF CARE.
[2018-04-09 03:00] VITALS: BP 119/64
--- NOTE | 2018-04-09 05:26 | NUR ---
PT REQUEST IV FLUIDS BE TURNED OFF DUE TO ANTICIPATED DC TODAY, DONE AT THIS TIME.
[2018-04-09 06:51] LABS: ANION GAP 15.4 mmol/L (8-16); BILIRUBIN - TOTAL 0.45 mg/dL (0.2-1.3); CALCIUM 8.7 mg/dL (8.5-10.1); CARBON DIOXIDE 23.5 mmol/L (21.0-32.0); CREATININE - SERUM 1.6 mg/dL (0.6-1.3); POTASSIUM - SERUM 3.9 mmol/L (3.5-5.1); PROTEIN - SERUM 6.5 g/dL (6.4-8.2)
[2018-04-09 06:52] LABS: ALBUMIN 2.8 g/dL (3.4-5.0)
[2018-04-09 07:10] LABS: HEMATOCRIT 35.6 % (42.0-54.0); HEMOGLOBIN 12.1 g/dL (13.5-17.5); MCH 30.4 pg (26.0-34.0); MCV 89.4 fL (80.0-100.0); MEAN PLATELET VOLUME 9.6 fL (7.4-10.4); RBC 3.98 10x6/uL (4.20-6.10); RDW 12.8 % (11.5-14.5); WBC 18.7 10x3/uL (4.8-10.8)
[2018-04-09 07:11] LABS: PLATELET COUNT 142 10x3/uL (130-400)
--- NOTE | 2018-04-09 07:30 | NUR ---
REPORT RECIEVED ASSUMED CARE. PATIENT IN BED WITH IV INTACT. N O OCMPLAINTS OR SIGNS OF DISTRESS. HAS NOT VOIDED ON OWN MUCH YET. WILL CONTINUE TO MONITOR.;
[2018-04-09 08:03] VITALS: BP 124/71
[2018-04-09 08:29] LABS: EOSINOPHILS 5 % (0-7); LYMPHOCYTES 9 % (15-50); MONOCYTES 11 % (2-11); NEUTROPHILS 63 % (40-80); PLATELET ESTIMATE NORMAL
[2018-04-09 08:30] LABS: ANISOCYTOSIS OCC
--- NOTE | 2018-04-09 08:30 | NUR ---
BLADDER SCANNED PATIENT. 921 IN BLADDER NOTED. SPOKE WITH . STATED TO CONSULT DR. SPEARS.
--- NOTE | 2018-04-09 09:15 | NUR ---
ASSISTED PATIENT TO RESTROOM. STATED HE FEELS NO PRESSURE OR URGE TO VOID. EXPLAINED TO PATIENT THAT THE BLADDER SCAN SHOWS BLADDER IS FULL AND WOULD LIKE HIM TO TRY. VERBALIZED UNDERSTANDING. CHANGED BED WHERE PATIENT WAS INCONTINENT SMALL AMOUNT. CALL LIGHT WITHIN REACH.
--- NOTE | 2018-04-09 09:40 | MORECARE ---
CASE MANAGEMENT DISCHARGE SUMMARY PATIENT: DOV KASPER UNIT: [id number] ADM DATE: 03/15/18 AGE: 87 : 32 SEX: M ROOM/BED: D.2226 AUTHOR: LIZET,DOC PHYSICIAN: REFERRING PHYSICIAN: HERBIE ALFORD MD DATE OF SERVICE: 04/09/18 Discharge Plan Patient Name: DOV KASPER Facility: [facility]:[place] : 1930 Planned Disposition: Anticipated Discharge Date: Discharge Date: Expected LOS: Initial Reviewer: [email or web address] Initial Review Date: 03/15/2018 Generated: 04/09/18 10:40 am Comments DCP- Discharge Planning Updated by [email or web address]: Taina Lala on 04/09/18 8:[address] Met with and daughter to discuss discharge planning. They are still wanting him to go home with [facility]. They are requesting a BSC, order received for BSC and spoke with [facility] Patient for delivery. CM will continue to follow and assist with discharge planning/needs. DCP- Discharge Planning Updated by [id number]: Taina Lala on 04/05/18 8:[address] CM met with patient and his in the room to discuss discharge planning. They would like him to go home with [facility] when discharged from acute care. States he is ambulating better now with PT and is no longer wanting to go to rehab. States when Dr. Wyman states his WBC is high enough for discharge, he wants to go home with home health. CM will continue to follow and assist with discharge planning/needs. DCP- Discharge Planning Updated by [email or web address]: Taina Lala on 03/30/18 11:[address] Spoke with patient about discharge planning, his son and are in the room. Patient would like to be able to go home, but realized he will need rehab prior to discharge. He does agree to inpatient rehab at [facility]. PT/OT and Rehab screen ordered. His states they have received his walker and have taken it home. CM will continue to follow and assist with discharge planning/needs. DCP- Discharge Planning Updated by [id number]: Taina Lala on 03/16/18 11:[address] Spoke with patient and family concerning discharge plans. PT recommends discharge with home health with 2 wheeled walker. He would like walker from [facility] Patient and ÁNGEL for [facility] signed. I called and spoke to Kayla at [facility] and clinical faxed. CM will continue to follow and assist with discharge planning/needs. DCP- Discharge Planning Updated by [id number]: Romelia Allen on 03/15/18 1:[address] CM met with patient/ in ER for dc needs/plans. Patient gives permission to speak with . Patient is [place], wears glasses. PCP: Dr. Badillo. Pharmacy: Pharmacy. HHS: None. Lives in his home with , Ledy Kasper. Spouse states patient is having great difficulty walking and she is afraid to assist, due to chance of falling. DME: Home O2 with portable tank at bedside. Provider is [facility] Patient. Patient would benefit use of WALKER upon discharge. Emergency contact: Leyd Kasper (spouse) [phone], Zac Kasper (son) [phone]. Patient was released from the hospital this past on antibiotic therapy. Spouse states patient needs REHAB or HHS upon discharge as he has been unable to be independent. CM will assist with dc needs/plans PRN. Romelia Allen RN CM DCPIA - Discharge Planning Initial Assessment Updated by [email or web address]: Romelia Allen on 03/15/18 1:49 pm * Is the patient Alert and Oriented? Yes * How many steps to enter\exit or inside your home? 5 w/rails * PCP Dr. Badillo * Pharmacy [facility] * Preadmission Environment Home with Family * ADLs Partial Dependent * Equipment Oxygen * Other Equipment Portable, Home O2 * List name and contact numbers for known caregivers / representatives who currently or will assist patient after discharge: [facility] * Verbal permission to speak to the caregivers and representatives has been obtained from the patient. Yes * Community resources currently utilized None * Please name any agencies selected above. NA Would benefit HHS, Rehab, Nursing/Rehab * Additional services required to return to the preadmission environment? Yes * Can the patient safely return to the preadmission environment? No * Has this patient been hospitalized within the prior 30 days at any hospital? Yes Last DP export: 04/05/18 8:53 am Patient Name: DOV KASPER Page [id number] at 0940 All edits/amendments must be made on the electronic document DICTATION DATE: 04/09/18939 GEM CUTTER: ANNE 04/09/18939 RPT#: [id number] DC DATE: STATUS: ADM IN [facility] [address] [place] [address] END OF REPORT
--- NOTE | 2018-04-09 10:30 | NUR ---
TRIED TO ENCOURAGE PATIENT TO VOID AGAIN. ASSISTED TO BR. CHANGED BED AGAIN DUE TO INCONTINENT EPISODE. PATIENT VOIDED A SMALL AMOUNT ON TOILET. STILL STATED HE HAS NO URGE OR PRESSURE TO VOID. FAMILY AT BEDSIDE. CALL LIGHT WITHIN REACH.
[2018-04-09 12:08] VITALS: BP 129/64
--- NOTE | 2018-04-09 12:36 | NUR ---
PATIENT CATHETER PLACED AT THIS TIME. O/P 1000 ML OF PINK DRAINAGE. IV INTACT. NO COMPLAINTS, CALL LIGHT WITHIN REACH.
--- NOTE | 2018-04-09 15:30 | NUR ---
PATIENT IN BED WITH IV INTACT. NO COMPLAINTS OR SIGNS OF DISTRESS. FAMILY AT BEDSIDE. CALL LIGHT WITHIN REACH.
[2018-04-09 16:27] VITALS: BP 120/66
--- NOTE | 2018-04-09 17:51 | NUR ---
PATIENT IN BED WITH IV ITNACT. NO COMPLAINTS OR SIGNS OF DISTRESS. VELASQUEZ INTACT WITH RED DRAINAGE. FAMILY AT BEDSIDE. CALL LIGHT WITHIN REACH.
--- NOTE | 2018-04-09 20:00 | NUR ---
ASSESSMENT PER FLOWSHEET. IV PATENT RT INFUSAPORT WITH NS AT 5CC'S/HR USED FOR ANTIBIOTICS. VELASQUEZ TO BEDSIDE DRAINAGE WITH DARK COLTON COORED URINE FEW CLOTS NOTED.SR UP X2 CALL LIGTH WITHIN REACH. BED ALARM ON AND ACTIVATED.
[2018-04-09 20:55] VITALS: BP 104/51
--- NOTE | 2018-04-09 21:45 | NUR ---
MEDS GIVEN PER APR. DENIES NEEDS. RESTING QUIETLY.
--- NOTE | 2018-04-10 | NUR ---
EYES CLOSED RESPIRATIONS WITH EASE AND UNLABORED.
[2018-04-10 02:14] VITALS: BP 119/61
[2018-04-10 04:32] VITALS: BP 120/62
[2018-04-10 06:00] LABS: HEMATOCRIT 33.4 % (42.0-54.0); HEMOGLOBIN 11.3 g/dL (13.5-17.5); MCH 30.5 pg (26.0-34.0); MCHC 33.8 g/dL (31.0-37.0); MEAN PLATELET VOLUME 9.4 fL (7.4-10.4); PLATELET COUNT 127 10x3/uL (130-400); RBC 3.71 10x6/uL (4.20-6.10); RDW 13.2 % (11.5-14.5)
[2018-04-10 06:14] LABS: WBC 9.6 10x3/uL (4.8-10.8)
[2018-04-10 06:16] LABS: ANION GAP 13.3 mmol/L (8-16); CALCIUM 8.1 mg/dL (8.5-10.1); CARBON DIOXIDE 26.1 mmol/L (21.0-32.0); CREATININE - SERUM 1.3 mg/dL (0.6-1.3); POTASSIUM - SERUM 3.4 mmol/L (3.5-5.1)
--- NOTE | 2018-04-10 06:17 | NUR ---
RESTING QUIETLY MEDS PER APR. NO CHANGES IN ASSESSMENT.
[2018-04-10 08:11] LABS: LYMPHOCYTES 24 % (15-50); MONOCYTES 11 % (2-11); NEUTROPHILS 45 % (40-80)
[2018-04-10 08:12] LABS: ANISOCYTOSIS OCC; PLATELET ESTIMATE NORMAL; POIKILOCYTOSIS OCC
[2018-04-10 09:38] VITALS: BP 128/65
--- NOTE | 2018-04-10 10:08 | NUR ---
WILLIAMS SPEARS IN ARDS TO PT DC, PER DR SPEARS PT MAY BE DC TO FOLLOW UP WITH HIM IN CLINIC
[2018-04-10] MEDS ORDERED: ALBUTEROL2.5 MG/3 M INH (10:18)
[2018-04-10] MEDS ORDERED: ALBUTEROL SULF8.5 GM INH (11:15)
--- NOTE | 2018-04-10 11:33 | MORECARE ---
CASE MANAGEMENT DISCHARGE SUMMARY PATIENT: DOV KASPER UNIT: [id number] ADM DATE: 03/15/18 AGE: 87 : 32 SEX: M ROOM/BED: D.2226 AUTHOR: LIZET,DOC PHYSICIAN: REFERRING PHYSICIAN: HERBIE GHOSH MD DATE OF SERVICE: 04/10/18 Discharge Plan Patient Name: DOV KASPER Facility: [facility]:[place] : 1930 Planned Disposition: Anticipated Discharge Date: Discharge Date: Expected LOS: Initial Reviewer: [email or web address] Initial Review Date: 03/15/2018 Generated: 04/10/18 12:33 pm Comments DCP- Discharge Planning Updated by [email or web address]: Taina Lala on 04/10/18 10:[address] Received orders for discharge. I called Kayla with [facility] and she states they will see him tomorrow. I spoke with the patient, his and daughter are in the room. He refuses for me to get a nebulizer for him. His daughter and agree to no nebulizer as we wishes. I spoke with Isela with Dr. Ghosh and she states she will change it to an inhaler, they agree to an inhaler as needed. IMM explained, signed, copy on chart. [facility] [place] Patient to bring BSC prior to discharge. CM will continue to follow and assist with discharge planning/needs. Home with home health today. DCP- Discharge Planning Updated by [email or web address]: Taina Lala on 04/09/18 8:[address] Met with and daughter to discuss discharge planning. They are still wanting him to go home with [facility]. They are requesting a BSC, order received for BSC and spoke with [facility] Patient for delivery. CM will continue to follow and assist with discharge planning/needs. DCP- Discharge Planning Updated by [email or web address]: Taina Lala on 04/05/18 8:[address] CM met with patient and his in the room to discuss discharge planning. They would like him to go home with [facility] when discharged from acute care. States he is ambulating better now with PT and is no longer wanting to go to rehab. States when Dr. Wyman states his WBC is high enough for discharge, he wants to go home with home health. CM will continue to follow and assist with discharge planning/needs. DCP- Discharge Planning Updated by [id number]: Taina Lala on 03/30/18 11:[address] Spoke with patient about discharge planning, his son and are in the room. Patient would like to be able to go home, but realized he will need rehab prior to discharge. He does agree to inpatient rehab at [facility]. PT/OT and Rehab screen ordered. His states they have received his walker and have taken it home. CM will continue to follow and assist with discharge planning/needs. DCP- Discharge Planning Updated by [email or web address]: Taina aLla on 03/16/18 11:[address] Spoke with patient and family concerning discharge plans. PT recommends discharge with home health with 2 wheeled walker. He would like walker from [facility] and ÁNGEL for [facility] signed. I called and spoke to Kayla at [facility] and clinical faxed. CM will continue to follow and assist with discharge planning/needs. DCP- Discharge Planning Updated by [email or web address]: Romelia Allen on 03/15/18 1:[address] CM met with patient/ in ER for dc needs/plans. Patient gives permission to speak with . Patient is [place], wears glasses. PCP: Dr. Badillo. Pharmacy: Pharmacy. HHS: None. Lives in his home with , Ledy Kasper. Spouse states patient is having great difficulty walking and she is afraid to assist, due to chance of falling. DME: Home O2 with portable tank at bedside. Provider is [facility]. Patient would benefit use of WALKER upon discharge. Emergency contact: Ledy Kasper (spouse) [phone], Zac Kasper (son) [phone]. Patient was released from the hospital this past on antibiotic therapy. Spouse states patient needs REHAB or HHS upon discharge as he has been unable to be independent. CM will assist with dc needs/plans PRN. Romelia Allen RN, CM DCPIA - Discharge Planning Initial Assessment Updated by [email or web address]: Romelia Allen on 03/15/18 1:49 pm * Is the patient Alert and Oriented? Yes * How many steps to enter\exit or inside your home? 5 w/rails * PCP Dr. Badillo * Pharmacy [facility] * Preadmission Environment Home with Family * ADLs Partial Dependent * Equipment Oxygen * Other Equipment Portable, Home O2 * List name and contact numbers for known caregivers / representatives who currently or will assist patient after discharge: [facility] * Verbal permission to speak to the caregivers and representatives has been obtained from the patient. Yes * Community resources currently utilized None * Please name any agencies selected above. NA Would benefit HHS, Rehab, Nursing/Rehab * Additional services required to return to the preadmission environment? Yes * Can the patient safely return to the preadmission environment? No * Has this patient been hospitalized within the prior 30 days at any hospital? Yes Coverage Notice Reviewer: [email or web address] Lg Lala Notice Issued Date-Time: 04/10/2018 11:12 Notice Type: IM Discharge Notice Notice Delivered To: Patient Relationship to Patient: Self Drapery Worker Name: Delivery Method: HAND - Hand Delivered Maki Days: Prior Verbal Notification: Recipient Understood Notice: Yes Recipient Signature: Yes Med Rec Note Co-signed by Attending: Coverage Notice Comment: IMM explained, signed, given, copy placed on chart Last DP export: 04/09/18 8:40 a Patient Name: DOV KASPER Page [id number] at 1133 All edits/amendments must be made on the electronic document DICTATION DATE: 04/10/181132 DARK ROOM ATTENDANT: ANNE 04/10/181132 RPT#: [id number] DC DATE: STATUS: ADM IN [facility] [address] [place] [address] END OF REPORT
--- NOTE | 2018-04-10 11:36 | NUR ---
SAULO CUELLAR EDUCATED PT AND IN REGARDS TO CATHETER BAG CHANGE , ALL QUESTIONS ANSWERED. PT HAS ABX RUNNING AND WILL DC AFTERWARDS
[2018-04-10 12:04] VITALS: BP 120/64
--- NOTE | 2018-04-11 13:14 | MORECARE ---
CASE MANAGEMENT DISCHARGE SUMMARY PATIENT: DOV KASPER UNIT: [id number] ADM DATE: 03/15/18 AGE: 87 : 32 SEX: M ROOM/BED: D.2226 AUTHOR: LIZET,DOC PHYSICIAN: REFERRING PHYSICIAN: HERBIE GHOSH MD DATE OF SERVICE: 04/11/18 Discharge Plan Patient Name: DVO KASPER Facility: [facility]:[place] : 1930 Planned Disposition: Home Anticipated Discharge Date: Discharge Date: 04/10/2018 Expected LOS: 0 Initial Reviewer: [email or web address] Initial Review Date: 03/15/2018 Generated: 04/11/18 2:14 pm Comments DCP- Discharge Planning Updated by [id number]: Taina Lala on 04/10/18 10:[address] Received orders for discharge. I called Kayla with [facility] and she states they will see him tomorrow. I spoke with the patient, his and daughter are in the room. He refuses for me to get a nebulizer for him. His daughter and agree to no nebulizer as we wishes. I spoke with Isela with Dr. Ghosh and she states she will change it to an inhaler, they agree to an inhaler as needed. IMM explained, signed, copy on chart. [facility] [place] Patient to bring BSC prior to discharge. CM will continue to follow and assist with discharge planning/needs. Home with home health today. DCP- Discharge Planning Updated by [email or web address]: Taina Lala on 04/09/18 8:[address] Met with and daughter to discuss discharge planning. They are still wanting him to go home with [facility]. They are requesting a BSC, order received for BSC and spoke with [facility] Patient for delivery. CM will continue to follow and assist with discharge planning/needs. DCP- Discharge Planning Updated by [email or web address]: Taina Lala on 04/05/18 8:[address] CM met with patient and his in the room to discuss discharge planning. They would like him to go home with [facility] when discharged from acute care. States he is ambulating better now with PT and is no longer wanting to go to rehab. States when Dr. Wyman states his WBC is high enough for discharge, he wants to go home with home health. CM will continue to follow and assist with discharge planning/needs. DCP- Discharge Planning Updated by [id number]: Taina Lala on 03/30/18 11:[address] Spoke with patient about discharge planning, his son and are in the room. Patient would like to be able to go home, but realized he will need rehab prior to discharge. He does agree to inpatient rehab at [facility]. PT/OT and Rehab screen ordered. His states they have received his walker and have taken it home. CM will continue to follow and assist with discharge planning/needs. DCP- Discharge Planning Updated by [email or web address]: Taina Lala on 03/16/18 11:[address] Spoke with patient and family concerning discharge plans. PT recommends discharge with home health with 2 wheeled walker. He would like walker from [facility] [place] [facility] and ÁNGEL for [facility] signed. I called and spoke to Kayla at [facility] and clinical faxed. CM will continue to follow and assist with discharge planning/needs. DCP- Discharge Planning Updated by [id number]: Romelia Allen on 03/15/18 1:[address] CM met with patient/ in ER for dc needs/plans. Patient gives permission to speak with . Patient is [place], wears glasses. PCP: Dr. Badillo. Pharmacy: Pharmacy. HHS: None. Lives in his home with , Ledy Kasper. Spouse states patient is having great difficulty walking and she is afraid to assist, due to chance of falling. DME: Home O2 with portable tank at bedside. Provider is [facility]. Patient would benefit use of WALKER upon discharge. Emergency contact: Ledy Kasper (spouse) [phone], Zac Kasper (son) [phone]. Patient was released from the hospital this past on antibiotic therapy. Spouse states patient needs REHAB or HHS upon discharge as he has been unable to be independent. CM will assist with dc needs/plans PRN. Romelia Allen RN, CM DCPIA - Discharge Planning Initial Assessment Updated by [email or web address]: Romelia Allen on 03/15/18 1:49 pm * Is the patient Alert and Oriented? Yes * How many steps to enter\exit or inside your home? 5 w/rails * PCP Dr. Badillo * Pharmacy [facility] * Preadmission Environment Home with Family * ADLs Partial Dependent * Equipment Oxygen * Other Equipment Portable, Home O2 * List name and contact numbers for known caregivers / representatives who currently or will assist patient after discharge: [facility] [place] [facility] * Verbal permission to speak to the caregivers and representatives has been obtained from the patient. Yes * Community resources currently utilized None * Please name any agencies selected above. NA Would benefit HHS, Rehab, Nursing/Rehab * Additional services required to return to the preadmission environment? Yes * Can the patient safely return to the preadmission environment? No * Has this patient been hospitalized within the prior 30 days at any hospital? Yes Coverage Notice Reviewer: [email or web address] Lg Lala Notice Issued Date-Time: 04/10/2018 11:12 Notice Type: IM Discharge Notice Notice Delivered To: Patient Relationship to Patient: Self Maintenance Groundskeeper Name: Delivery Method: HAND - Hand Delivered Maki Days: Prior Verbal Notification: Recipient Understood Notice: Yes Recipient Signature: Yes Med Rec Note Co-signed by Attending: Coverage Notice Comment: IMM explained, signed, given, copy placed on chart Last DP export: 04/10/18 10:33 a Patient Name: DOV KASPER Page [id number] at 1314 All edits/amendments must be made on the electronic document DICTATION DATE: 04/11/18 1313 PARKS RECREATION COORDINATOR: ANNE 04/11/18 1313 RPT#: [id number] DC DATE:04/10/18 STATUS: DIS IN [facility] [address] [place] [address] END OF REPORT
[2018-04-16 07:10] LABS: FUNGUS MYCOLOGY CULTURE Final report (())
[2018-04-24 07:33] LABS: FUNGUS MYCOLOGY CULTURE Final report (())
--- NOTE | 2018-04-26 09:41 | OP ---
PATIENT NAME: DOV KASPER MEDICAL RECORD: [id number] :34 LOCATION:D.MS Vergara2226 ADMISSION DATE:03/15/18 SURGEON: RENAN GILL MD DATE OF OPERATION: 03/22/2018 PREOPERATIVE DIAGNOSES: 1. Small cell lung cancer. 2. COPD. 3. Coronary artery disease. POSTOPERATIVE DIAGNOSES: 1. Small cell lung cancer. 2. COPD. 3. Coronary artery disease. PROCEDURES: 1. Right subclavian vein port placement. 2. Fluoroscopic interpretation. SURGEON: Renan Gill MD REPORT OF PROCEDURE: The patient's right chest was prepped and draped in sterile fashion. A needle was used to cannulate the right subclavian vein and a guidewire was advanced with ease. Fluoro was used to note that the wire was in good position in the venous system. A skin incision was made on the right superolateral chest and a subcutaneous pouch was made over the pectoral fascia. The catheter was tunneled between this pouch and the wire exit site. The port was sutured to the pectoral fascia using interrupted 3-0 Prolenes times 2. The catheter was cut with a beveled tip at 23 cm. The dilator trocar device was placed over the wire and the wire and dilator were removed. The catheter tip was advanced through the trocar and the trocar was then removed. The catheter tip was noted to be resting in good position at the right atrial-superior vena caval junction. The catheter aspirated nonpulsatile dark blood and flushed easily with heparinized saline. The subcutaneous tissues were reapproximated with interrupted 3-0 Vicryl and the skin was closed with running subcutaneous 5-0 Monocryl. The port was accessed and flushed one last time before a dressing was applied. COMPLICATIONS: None. CONDITION: Stable. ANESTHESIA: General endotracheal. BLOOD LOSS: Minimal. TRANSINT:[id number] Voice Confirmation ID: [id number] DOCUMENT ID: [id number] OPERATIVE REPORT [id number] MAJORENAN BAUTISTA MD at 0941 CC: [id number] DICTATION DATE: 03/22/18 1350 SAUSAGE COOKER: 03/22/18 1845 DIS IN 04/10/18 [place] [id number] [place] [address]
== END 2018-04-10 13:34 | disposition home health service (06) | DRG 843 ==
LOC: D.ER 08:41 → D.ICU 13:31 → D.MS 13:31 → D.EDHOLD 13:31 → D.MS 13:42 → D.ICU 03-25 05:00 → D.MS 03-29 12:59
PROVIDERS: Emergency Medicine; Family Medicine; General Practice; Internal Medicine Hematology & Oncology; Internal Medicine Pulmonary Disease; Radiology Diagnostic Radiology; Urology; ADMIT Internal Medicine Nephrology
PROC: 0JH63WZ Insertion of Totally Implantable Vascular Access Device into Chest Subcutaneous Tissue and Fascia, Percutaneous Approach (ICD-10-PCS; 2018-03-22)
PROC: 0W993ZZ Drainage of Right Pleural Cavity, Percutaneous Approach (ICD-10-PCS; 2018-03-27)
PROC: 0T9B80Z Drainage of Bladder with Drainage Device, Via Natural or Artificial Opening Endoscopic (ICD-10-PCS; principal; 2018-03-27 11:00)
DX: C7A.8 Other malignant neuroendocrine tumors (principal); J18.9 Pneumonia, unspecified organism; G92 Toxic encephalopathy; I50.23 Acute on chronic systolic (congestive) heart failure; J90 Pleural effusion, not elsewhere classified; N17.9 Acute kidney failure, unspecified; J44.9 Chronic obstructive pulmonary disease, unspecified; I10 Essential (primary) hypertension; I25.10 Atherosclerotic heart disease of native coronary artery without angina pectoris; R54 Age-related physical debility; R33.9 Retention of urine, unspecified; N40.0 Benign prostatic hyperplasia without lower urinary tract symptoms; N32.0 Bladder-neck obstruction; D69.59 Other secondary thrombocytopenia

== ENCOUNTER 2018-04-13 10:01 | Emergency (ER) | payer MEDICARE, OTHER ==
[~2018-04-13] VITALS: Ht 180.3 cm; Wt 81.8 kg
[~2018-04-13 10:01] MED LIST changes: +ALBUTEROL SULF8.5 GM INH; +ALBUTEROL2.5 MG/3 M INH; +NORVASC5 MG PO
[2018-04-13 10:02] VITALS: BP 127/69; Ht 180.3 cm; Wt 81.8 kg
[2018-04-13 12:18] LABS: APPEARANCE TURBID (CLEAR); BILIRUBIN NEGATIVE (NEGATIVE); COLOR AMBER (YELLOW); GLUCOSE NEGATIVE (NEGATIVE); KETONE NEGATIVE (NEGATIVE); NITRITE NEGATIVE (NEGATIVE); PH 5.5 (5.0-6.0); PROTEIN 1+ mg/dL (NEGATIVE); SPECIFIC GRAVITY 1.015 (1.005-1.020); UROBILINOGEN NORMAL (NORMAL)
[2018-04-13 12:22] LABS: BACTERIA MANY /hpf (NONE SEEN); EPITHELIAL CELLS 0-5 /hpf (0-5); RED CELLS - URINE >50 /hpf (0-5)
== END 2018-04-13 11:37 | disposition home or self-care (01) ==
LOC: D.ER 10:01
PROVIDERS: Family Medicine
DX: T83.098A Other mechanical complication of other urinary catheter, initial encounter (principal)

== ENCOUNTER 2018-04-26 08:54 | Day surgery (SDC) | payer MEDICARE, OTHER ==
[~2018-04-26] VITALS: Ht 180.3 cm; Wt 83.0 kg
[2018-04-26 09:16] LABS: BASOPHILS 1.3 % (0-2); EOSINOPHILS 3.3 % (0-7); HEMATOCRIT 36.9 % (42.0-54.0); HEMOGLOBIN 12.2 g/dL (13.5-17.5); IMMATURE GRANULOCYTES 0.5 % (0-5); LYMPHOCYTES 14.6 % (15-50); MCH 30.7 pg (26.0-34.0); MCHC 33.1 g/dL (31.0-37.0); MCV 92.7 fL (80.0-100.0); MONOCYTES 8.2 % (2-11); NEUTROPHILS 72.1 % (40-80); RBC 3.98 10x6/uL (4.20-6.10); RDW 14.2 % (11.5-14.5); WBC 8.7 10x3/uL (4.8-10.8)
[2018-04-26 09:23] LABS: PLATELET COUNT 247 10x3/uL (130-400)
[2018-04-26 09:29] LABS: ANION GAP 11.8 mmol/L (8-16); CALCIUM 8.7 mg/dL (8.5-10.1); CARBON DIOXIDE 29.6 mmol/L (21.0-32.0); CREATININE - SERUM 1.5 mg/dL (0.6-1.3); POTASSIUM - SERUM 4.4 mmol/L (3.5-5.1)
[2018-04-26 09:31] LABS: APTT 26.2 SECONDS (22.8-39.4); INR 1.07 (0.85-1.17); PROTIME 13.4 SECONDS (11.6-15.0)
[2018-04-26 11:19] VITALS: BP 130/64; Ht 180.3 cm; Wt 83.0 kg
--- NOTE | 2018-04-27 09:02 | OP ---
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 IPSS score is 11 and quality of life score is 5. PROCEDURE: UroLift times 4 Implants. FINDINGS: Bilateral lateral lobe hyperplasia with minimum in median lobe. Single ureteral orifice bilaterally. No bladder tumors. BLOOD LOSS: None. CLINICAL HISTORY: This is an 87-year-old man who has urinary retention. The nurses on the floor had a great deal of difficulty inserting a Irvin catheter. I had to put a Irvin catheter over a guidewire. Cystoscopy on 03/27/2018 showed bilateral lateral lobe hyperplasia, which was obstructive. He has stage IV lung cancer, for which he has had thoracentesis for pleural effusion. He is currently on chemotherapy. He has had one dose of chemotherapy so far; but because of the presence of the catheter, the oncologist is reluctant to keep giving chemotherapy. We are getting the UroLift procedure done so that he can be free of the catheter and he can continue with his chemotherapy. HE IS ALLERGIC TO BENADRYL. He was given Ancef on-call to the OR. DESCRIPTION OF PROCEDURE: The patient was given IV sedation. He was then placed in the dorsal lithotomy position. The UroLift cystoscope was used and the findings are as outlined above. At 1.5 cm distal to the bladder neck, we implanted one unit on each side at the anterolateral prostatic urethra. Then, at the verumontanum level, we implanted one unit on each side at the anterolateral prostatic urethra. Thus, a total of 4 units were implanted. He now has a nice open anterior urethral channel. A 16-Albanian Irvin catheter was then placed back into the bladder. This will be put to bag drainage. I will see him in the office next week to have a trial of voiding by removing the catheter. TRANSINT:[id number] Voice Confirmation ID: [id number] DOCUMENT ID: [id number] ANTHONY SPEARS MD at 0902 CC: [id number] DICTATION DATE: 04/26/18 1442 YARD ASSOCIATE: 04/26/18 1908 [facility] 04/26/[address] [facility] [address] [facility] [place] [address]
== END 2018-04-26 17:06 | disposition home or self-care (01) ==
LOC: D.OPS 08:54 → D.PAN 12:00 → D.OPS 13:00 → D.PAN 13:45 → D.OPS 13:45
PROVIDERS: Anesthesiology; ATTEND Urology
DX: N40.1 Benign prostatic hyperplasia with lower urinary tract symptoms (principal); N13.8 Other obstructive and reflux uropathy; R33.8 Other retention of urine; C34.90 Malignant neoplasm of unspecified part of unspecified bronchus or lung; Z79.899 Other long term (current) drug therapy; Z88.8 Allergy status to other drugs, medicaments and biological substances

== ENCOUNTER 2018-04-26 19:12 | Emergency (ER) | payer MEDICARE, OTHER ==
[~2018-04-26] VITALS: Ht 180.3 cm; Wt 81.8 kg
[2018-04-26 19:19] VITALS: Ht 180.3 cm; Wt 81.8 kg
[2018-04-26 20:04] LABS: APPEARANCE TURBID (CLEAR); BACTERIA NONE SEEN /hpf (NONE SEEN); BILIRUBIN NEGATIVE (NEGATIVE); COLOR DARK RED (YELLOW); EPITHELIAL CELLS NSEEN /hpf (0-5); GLUCOSE NEGATIVE (NEGATIVE); KETONE NEGATIVE (NEGATIVE); NITRITE NEGATIVE (NEGATIVE); PROTEIN 2+ mg/dL (NEGATIVE); RED CELLS - URINE >50 /hpf (0-5); SPECIFIC GRAVITY 1.015 (1.005-1.020); UROBILINOGEN NORMAL (NORMAL); WHITE CELLS - URINE NSEEN /hpf (0-5)
[2018-04-26 20:36] VITALS: BP 124/77
== END 2018-04-26 20:37 | disposition home or self-care (01) ==
LOC: D.ER 19:12
PROVIDERS: Family Medicine
DX: T83.018A Breakdown (mechanical) of other urinary catheter, initial encounter (principal); R31.9 Hematuria, unspecified; N39.0 Urinary tract infection, site not specified

== ENCOUNTER 2018-05-28 16:21 | Inpatient (IN) | payer MEDICARE, OTHER ==
[~2018-05-28] VITALS: Ht 180.3 cm; Wt 83.9 kg
--- NOTE | 2018-05-28 16:31 | NUR ---
PT TAKES ASPIRIN 81 MG DAILY.
--- NOTE | 2018-05-28 16:43 | NUR ---
PT GONE TO CT VIA STRETCHER AT THIS TIME.
[2018-05-28 17:15] VITALS: BP 156/76
[2018-05-28 17:42] LABS: BASOPHILS 0.5 % (0-2); EOSINOPHILS 0.3 % (0-7); HEMATOCRIT 38.1 % (42.0-54.0); HEMOGLOBIN 12.6 g/dL (13.5-17.5); IMMATURE GRANULOCYTES 0.3 % (0-5); LYMPHOCYTES 9.6 % (15-50); MCH 31.3 pg (26.0-34.0); MCHC 33.1 g/dL (31.0-37.0); MCV 94.8 fL (80.0-100.0); MEAN PLATELET VOLUME 9.2 fL (7.4-10.4); MONOCYTES 0.5 % (2-11); NEUTROPHILS 88.8 % (40-80); PLATELET COUNT 219 10x3/uL (130-400); RBC 4.02 10x6/uL (4.20-6.10); RDW 16.9 % (11.5-14.5); WBC 3.9 10x3/uL (4.8-10.8)
[2018-05-28 18:00] VITALS: BP 145/73
[2018-05-28 18:12] LABS: ALBUMIN 3.8 g/dL (3.4-5.0); ALKALINE PHOSPHATASE 76 U/L (46-116); ALT (SGPT) 18 U/L (10-68); BILIRUBIN - TOTAL 0.64 mg/dL (0.2-1.3); CALC OSMOLALITY 288 mosm/kg (275-300); CALCIUM 8.6 mg/dL (8.5-10.1); CARBON DIOXIDE 24.9 mmol/L (21.0-32.0); CHLORIDE - SERUM 101 mmol/L (98-107); CKMB 1.7 U/L (0.0-3.6); CREATINE KINASE 47 UL (21-232); CREATININE - SERUM 1.3 mg/dL (0.6-1.3); GLUCOSE 204 mg/dL (74-106); POTASSIUM - SERUM 4.5 mmol/L (3.5-5.1); PROTEIN - SERUM 7.8 g/dL (6.4-8.2); SODIUM 138 mmol/L (136-145); TROPONIN-I < 0.017 ng/mL (0.000-0.060); UREA NITROGEN 32 mg/dL (7-18); eGFR NON AFRICAN AMERICAN 56 mL/min (90-120)
--- NOTE | 2018-05-28 18:50 | MORECARE ---
CASE MANAGEMENT DISCHARGE SUMMARY PATIENT: DOV KASPER UNIT: [id number] ADM DATE: 05/28/18 AGE: 87 : 32 SEX: M ROOM/BED: D.2237 AUTHOR: EMILY HINDS PHYSICIAN: REFERRING PHYSICIAN: JAMEE DONAHUE DO DATE OF SERVICE: 05/28/18 Discharge Plan Patient Name: DOV KASPER [facility] [facility] 1930 Planned Disposition: Home Anticipated Discharge Date: 05/30/18 Discharge Date: Expected LOS: 2 Initial Reviewer: [email or web address] Initial Review Date: 05/28/2018 Generated: 05/28/18 7:50 pm Patient Name: DOV KASPER Page 09384 at 1850 All edits/amendments must be made on the electronic document DICTATION DATE: 05/28/181849 STACKER DRIVER: ANNE 05/28/181849 RPT#: [id number] DC DATE: STATUS: ADM IN [facility] [address] [place] [address] END OF REPORT
--- NOTE | 2018-05-28 18:57 | MORECARE ---
CASE MANAGEMENT DISCHARGE SUMMARY PATIENT: DOV KASPER UNIT: [id number] ADM DATE: 05/28/18 AGE: 87 : 32 SEX: M ROOM/BED: D.2237 AUTHOR: EMILY HINDS PHYSICIAN: REFERRING PHYSICIAN: JAMEE DONAHUE DO DATE OF SERVICE: 05/28/18 Discharge Plan Patient Name: DOV KASPER Facility: [facility]:[place] : 1930 Planned Disposition: Home Anticipated Discharge Date: 05/30/18 Discharge Date: Expected LOS: 2 Initial Reviewer: [email or web address] Initial Review Date: 05/28/2018 Generated: 05/28/18 7:57 pm DCP- Discharge Planning Updated by [email or web address]: Mayela Noe on 05/28/18 5:[address] Patient Name: DOV KASPER Admission Status: ER Accout number: [id number] Admission Date: 05-28-2018 : 1930 Admission Diagnosis: Attending: JAMEE DONAHUE Current LOS: 1 Anticipated DC Date: 05-30-2018 Planned Disposition: Home Primary Insurance: MEDICARE A & B Discharge Planning Comments: CM met with patient , his son, and his to complete initial dc planning assessment. CM educated patient and his family on the CM role and verbal consent given by patient to complete assessment. Patient lives at home with his and is typically independent in his care at home. He has a walker and oxygen which he uses neither. Patient recently had [facility] but he released them because he said he didn't need them any longer. stated she thinks he may need them again at dc. ÁNGEL form signed by patient's for [facility]. Signed form placed in chart and signed form given to patient's . At discharge patient plans to return home and they all agree this is a safe discharge. They denied further known discharge needs at this time. CM will continue to follow and will assist as needed with dc plans/needs. Remodeler: Mayela Noe RN, [facility] DCPIA - Discharge Planning Initial Assessment Updated by [email or web address]: Mayela Noe on 05/28/18 6:52 pm * Is the patient Alert and Oriented? Yes * PCP Dr. Rodriguez * Pharmacy [facility] * Preadmission Environment Home with Family * ADLs Independent * Equipment Oxygen Walker * Other Equipment Does not use walker or wear his oxygen at home. * List name and contact numbers for known caregivers / representatives who currently or will assist patient after discharge: Zac Kasper - son - [phone] Ledy Kasper - spouse - [phone] * Verbal permission to speak to the caregivers and representatives has been obtained from the patient. Yes * Community resources currently utilized None * Please name any agencies selected above. Used [employer] in the past but no longer has them. ÁNGEL signed in the ER if needed again at [place] for PT. * Additional services required to return to the preadmission environment? Yes * Can the patient safely return to the preadmission environment? Yes * Has this patient been hospitalized within the prior 30 days at any hospital? No Last DP export: 05/28/18 5:50 pm Patient Name: DOV KASPER Page 17022 at 1857 All edits/amendments must be made on the electronic document DICTATION DATE: 05/28/181856 CUSTOMER RELATIONS REPRESENTATIVE: ANNE 05/28/181856 RPT#: [id number] [place] DATE: STATUS: ADM IN [facility] [address] [place] [address] END OF REPORT
[2018-05-28 19:15] VITALS: BP 143/77
--- NOTE | 2018-05-28 19:31 | NUR ---
REPORT CALLED TO FLOOR NURSE ETELVINA. PT GOING TO ROOM 2237. PT STABLE AT THIS TIME.
[2018-05-28 20:00] VITALS: BP 144/68
[2018-05-28 23:36] LABS: CKMB 1.4 U/L (0.0-3.6); CREATINE KINASE 41 UL (21-232)
[2018-05-28 23:42] LABS: TROPONIN-I < 0.017 ng/mL (0.000-0.060)
[2018-05-29] VITALS (7 sets, daily range): BP systolic 112–147; BP diastolic 69–100; Ht 180.3 cm; Wt 83.9 kg
--- NOTE | 2018-05-29 09:04 | NUR ---
PT SITTING UP IN BED. A/O X 4. UP WITH ASSIST. FAMILY AT BEDSIDE. R CHEST PORT SL. DENIES PAIN AT THIS TIME. NO MEDS GIVEN. RADIAL AND PEDAL PULSES 2+ FANNY/EQUAL. ROOM AIR. HEART RRR. DENIES FURTHER CONCERNS AT THIS TIME. BED LOWERED AND LOCKED. CL IN REACH. WILL CPOC.
--- NOTE | 2018-05-29 09:06 | NUR ---
INFORMED PT THAT NEED URINE SAMPLE. URINAL GIVEN TO PT. DENIES FURTHER CONCERNS AT THIS TIME.
[2018-05-29 09:34] LABS: CKMB 1.1 U/L (0.0-3.6); CREATINE KINASE 44 UL (21-232)
[2018-05-29 09:35] LABS: TROPONIN-I < 0.017 ng/mL (0.000-0.060)
--- NOTE | 2018-05-29 14:44 | NUR ---
PT STATES HE CANT FEEL SCD TO L LEG. TAPPED LEG AND PT DENIES BEING ABLE TO FEEL ME TAPPING LEG AND FOOT. ABLE TO FEEL WHEN I TAPPED LEG AND FOOT TO R SIDE. INFOMRED PT THAT SCD'S WERE ON AND WORKING.
[2018-05-29 14:58] LABS: APPEARANCE SL CLDY (CLEAR); COLOR YELLOW (YELLOW)
[2018-05-29 14:59] LABS: BILIRUBIN NEGATIVE (NEGATIVE); GLUCOSE NEGATIVE (NEGATIVE); KETONE NEGATIVE (NEGATIVE); NITRITE NEGATIVE (NEGATIVE); PROTEIN NEGATIVE (NEGATIVE); UROBILINOGEN NORMAL (NORMAL)
[2018-05-29 15:00] LABS: BACTERIA MANY /hpf (NONE SEEN); RED CELLS - URINE 0-5 /hpf (0-5)
[2018-05-29 15:37] LABS: CKMB 0.8 U/L (0.0-3.6); CREATINE KINASE 42 UL (21-232)
[2018-05-29 15:39] LABS: TROPONIN-I < 0.017 ng/mL (0.000-0.060)
[2018-05-29] MEDS ORDERED: NORVASC5 MG PO (16:03)
--- NOTE | 2018-05-29 17:24 | HP ---
PATIENT: DOV KASPER MEDICAL RECORD: [id number] ACCOUNT: [id number] LOCATION:D.MS Vergara2237 : 34 ADMISSION DATE: 05/28/18 PCP: JHONATHAN RODRIGUEZ MD HISTORY AND PHYSICAL EXAMINATION HISTORY OF PRESENT ILLNESS: Mr. Kasper is a nice 87-year-old white male that presents to the Emergency Room after falling at home. His primary care physician is Dr. Rodriguez. 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 Wyman, had his first treatment today, got home and was getting out of the vehicle with his when she saw him fall. They both feel like he may have tripped, although neither one are really clear about the mechanism of the fall or the injury. He is not very tender right now, but CT of his head reveals a trace subarachnoid hemorrhage along the superior right frontal lobe which is felt to be post-traumatic. There is no sign of any metastatic disease. Dr. Rangel has been consulted and he will be seeing the patient in consult. We will also notify Dr. Wyman since he is due to get another treatment with her tomorrow. 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 PAST SURGICAL HISTORY: Include a CABG in the past. He had UroLift by Dr. Turk, gallbladder, knee replacement and a knee surgery, and he has also had a tonsillectomy. ALLERGIES: BENADRYL, WHICH CAUSES SEIZURES. HOME MEDICATIONS: Is an aspirin a day. FAMILY HISTORY: Noncontributory. SOCIAL HISTORY: The patient is , is at the bedside. He does not drink, does not smoke. He is retired from the for 30 years. REVIEW OF SYSTEMS: Complain of a little bit of a headache and neck and upper back pain. He was noted to have an anterior left rib fracture. No nausea or vomiting. No vision changes. No palpitations. No vertigo at this time. PHYSICAL EXAMINATION: GENERAL: Alert and cooperative. Color is good. HEENT: Pupils are equal and reactive. Tongue is in the midline. NECK: Soft and supple. HEART: Regular. LUNGS: Clear. ABDOMEN: Soft. EXTREMITIES: He moves all extremities without any focal deficits at this time. IMPRESSION: 1. Fall. 2. Trace subarachnoid hemorrhage. 3. Right 2nd rib fracture. 4. Small cell neuroendocrine lung cancer. PLAN: 1. Admit to observe for neuro changes. HISTORY AND PHYSICAL [id number] DOV KASPER 2. Consult Dr. Rangel. 3. Consult Dr. Wyman. 4. See orders for rest of plan. 5. Hold aspirin. TRANSINT:[id number] Voice Confirmation ID: [id number] DOCUMENT ID: [id number] JAMEE DOANHUE DO at 1724 CC: [id number] DICTATION DATE: 05/28/181938 TV PRODUCTION ASSISTANT: 05/28/182049 ADM IN [place] [id number] [place] [id number]
--- NOTE | 2018-05-29 18:14 | NUR ---
I have reviewed this patient and I concur with the Shift Assessment completed by the Licensed Practical Nurse today this shift.
--- NOTE | 2018-05-29 20:11 | NUR ---
REC'D AT [facility].IN BED FAMILY MEMBER AT BEDSIDE.DENIES ANY PAIN OR DISCOMFORT AT PRESENT TIME.NEURO STATUS WNL.WILL CONTINUE TO MONITOR FOR ANY CHGES AND FOLLOW CURRENT PLAN OF CARE
[2018-05-30 04:39] VITALS: BP 155/84
--- NOTE | 2018-05-30 07:26 | NUR ---
I CONCUR WITH SAW BOSS ASSESSMENT.
--- NOTE | 2018-05-30 07:30 | NUR ---
REC'D IN WALKING ROUNDS WITH EYES CLOSED NO DISTRESS NOTED. RESP EVEN AND UNLABORED WITH NO DISTRESS NOTED. CAN EXPRESS NEEDS AND WANTS. NO C/O NOTED OR VOICED. ASSESSSMENT COMPLETED. C/L IN REACH AT BEDSIDE.
[2018-05-30 07:40] LABS: EOSINOPHILS 0.1 % (0-7); HEMATOCRIT 38.2 % (42.0-54.0); HEMOGLOBIN 12.6 g/dL (13.5-17.5); IMMATURE GRANULOCYTES 0.1 % (0-5); LYMPHOCYTES 24.7 % (15-50); MCH 31.2 pg (26.0-34.0); MCV 94.6 fL (80.0-100.0); MEAN PLATELET VOLUME 9.4 fL (7.4-10.4); MONOCYTES 14.4 % (2-11); NEUTROPHILS 59.7 % (40-80); PLATELET COUNT 250 10x3/uL (130-400); RBC 4.04 10x6/uL (4.20-6.10); RDW 17.2 % (11.5-14.5)
[2018-05-30 07:46] LABS: ALBUMIN 3.7 g/dL (3.4-5.0); ANION GAP 15.9 mmol/L (8-16); BILIRUBIN - TOTAL 1.19 mg/dL (0.2-1.3); CALCIUM 8.8 mg/dL (8.5-10.1); CARBON DIOXIDE 24.2 mmol/L (21.0-32.0); CREATININE - SERUM 1.2 mg/dL (0.6-1.3); POTASSIUM - SERUM 4.1 mmol/L (3.5-5.1); PROTEIN - SERUM 7.4 g/dL (6.4-8.2)
[2018-05-30 08:12] LABS: WBC 7.1 10x3/uL (4.8-10.8)
[2018-05-30 09:35] VITALS: BP 140/72
[2018-05-30] MEDS ORDERED: CATAPRES0.1 MG PO (09:50)
--- NOTE | 2018-05-30 12:42 | NUR ---
DC HOME AT THIS TIME VOICE INSTRUCTION OF DC ORDERS. NO C/O NOTED OR VOICED. PORT WAS DEACCESSED BY RN. AT BEDSIDE.
--- NOTE | 2018-05-30 12:59 | MORECARE ---
CASE MANAGEMENT DISCHARGE SUMMARY PATIENT: DOV KASPER UNIT: [id number] ADM DATE: 05/28/18 AGE: 87 : 32 SEX: M ROOM/BED: D.2237 AUTHOR: EMILY IHNDS PHYSICIAN: REFERRING PHYSICIAN: JAMEE DONAHUE DO DATE OF SERVICE: 05/30/18 Discharge Plan Patient Name: DOV KASPER Facility: [facility]:[place] : 1930 Planned Disposition: Home Anticipated Discharge Date: 05/30/18 Discharge Date: 05/30/2018 Expected LOS: 2 Initial Reviewer: [email or web address] Initial Review Date: 05/28/2018 Generated: 05/30/18 1:58 pm DCP- Discharge Planning Updated by [email or web address]: Mayela Noe on 05/28/18 5:[address] Patient Name: DOV KASPER Admission Status: ER Accout number: [id number] Admission Date: 05-28-2018 : 1930 Admission Diagnosis: Attending: JAMEE DONAHUE Current LOS: 1 Anticipated DC Date: 05-30-2018 Planned Disposition: Home Primary Insurance: MEDICARE A & B Discharge Planning Comments: CM met with patient , his son, and his to complete initial dc planning assessment. CM educated patient and his family on the CM role and verbal consent given by patient to complete assessment. Patient lives at home with his and is typically independent in his care at home. He has a walker and oxygen which he uses neither. Patient recently had [facility] but he released them because he said he didn't need them any longer. stated she thinks he may need them again at dc. ÁNGEL form signed by patient's for [facility]. Signed form placed in chart and signed form given to patient's . At discharge patient plans to return home and they all agree this is a safe discharge. They denied further known discharge needs at this time. CM will continue to follow and will assist as needed with dc plans/needs. Slime Plant Operator Helper: Mayela Noe RN, [facility] DCPIA - Discharge Planning Initial Assessment Updated by [email or web address]: Mayela Noe on 05/28/18 6:52 pm * Is the patient Alert and Oriented? Yes * PCP Dr. Rodriguez * Pharmacy [facility] * Preadmission Environment Home with Family * ADLs Independent * Equipment Oxygen Walker * Other Equipment Does not use walker or wear his oxygen at home. * List name and contact numbers for known caregivers / representatives who currently or will assist patient after discharge: Zac Kasper - son - [phone] Ledy Kasper - spouse - [phone] * Verbal permission to speak to the caregivers and representatives has been obtained from the patient. Yes * Community resources currently utilized None * Please name any agencies selected above. Used [facility] in the past but no longer has them. ÁNGEL signed in the ER if needed again at [place] for PT. * Additional services required to return to the preadmission environment? Yes * Can the patient safely return to the preadmission environment? Yes * Has this patient been hospitalized within the prior 30 days at any hospital? No External Providers [facility] Contact Date: Service Request Date: Service Type: Resolution: Reviewer: Comments: Last DP export: 05/28/18 5:57 pm Patient Name: DOV KASPER Page [phone] at 1259 All edits/amendments must be made on the electronic document DICTATION DATE: 05/30/18 1258 INDEPENDENT BEAUTY CONSULTANT: ANNE 05/30/18 1258 RPT#: [id number] [place] DATE:05/30/18 STATUS: DIS IN [facility] [address] [place] [address] END OF REPORT
--- NOTE | 2018-05-30 13:09 | MORECARE ---
CASE MANAGEMENT DISCHARGE SUMMARY PATIENT: DOV KASPER UNIT: [id number] ADM DATE: 05/28/18 AGE: 87 : 32 SEX: M ROOM/BED: D.2237 AUTHOR: EMILY HINDS PHYSICIAN: REFERRING PHYSICIAN: JAMEE DONAHUE DO DATE OF SERVICE: 05/30/18 Discharge Plan Patient Name: DOV KASPER Facility: [facility]:[place] : 1930 Planned Disposition: Home Anticipated Discharge Date: 05/30/18 Discharge Date: 05/30/2018 Expected LOS: 2 Initial Reviewer: [email or web address] Initial Review Date: 05/28/2018 Generated: 05/30/18 2:09 pm Comments DCP- Discharge Planning Updated by [email or web address]: Taina Lala on 05/30/18 12:[address] Patient Name: DOV KASPER Encounter No: [id number] : 1930 Primary Insurance: MEDICARE A & B Anticipated DC Date: 05-30-2018 Planned Disposition: Home External Planned Provider: : DCP follow-up note: Patient and family in agreement with discharge plan. No changes to plan. ÁNGEL for [facility] signed. I called Kayla and they will begin seeing him on Monday. I asked for a medical alert button. He states he has been weak in his left leg for about 2 years, but lately it has become a little more weak and numb. Case management will follow and assist as needed. Taina Lala DCP- Discharge Planning Updated by [id number]: Mayela Noe on 05/28/18 5:[address] Patient Name: DOV KASPER Admission Status: ER Accout number: [id number] Admission Date: 05-28-2018 : 1930 Admission Diagnosis: Attending: JAMEE DONAHUE Current LOS: 1 Anticipated DC Date: 05-30-2018 Planned Disposition: Home Primary Insurance: MEDICARE A & B Discharge Planning Comments: CM met with patient , his son, and his to complete initial dc planning assessment. CM educated patient and his family on the CM role and verbal consent given by patient to complete assessment. Patient lives at home with his and is typically independent in his care at home. He has a walker and oxygen which he uses neither. Patient recently had [facility] but he released them because he said he didn't need them any longer. stated she thinks he may need them again at [place]. ÁNGEL form signed by patient's for [facility]. Signed form placed in chart and signed form given to patient's . At discharge patient plans to return home and they all agree this is a safe discharge. They denied further known discharge needs at this time. CM will continue to follow and will assist as needed with dc plans/needs. Public Welfare Director: Mayela Noe RN, [facility] DCPIA - Discharge Planning Initial Assessment Updated by [id number]: Mayela Noe on 05/28/18 6:52 pm * Is the patient Alert and Oriented? Yes * PCP Dr. Rodriguez * Pharmacy [facility] * Preadmission Environment Home with Family * ADLs Independent * Equipment Oxygen Walker * Other Equipment Does not use walker or wear his oxygen at home. * List name and contact numbers for known caregivers / representatives who currently or will assist patient after discharge: Zac Kasper - son - [phone] Ledy Kasper - spouse - [phone] * Verbal permission to speak to the caregivers and representatives has been obtained from the patient. Yes * Community resources currently utilized None * Please name any agencies selected above. Used [facility] in the past but no longer has them. ÁNGEL signed in the ER if needed again at [place] for PT. * Additional services required to return to the preadmission environment? Yes * Can the patient safely return to the preadmission environment? Yes * Has this patient been hospitalized within the prior 30 days at any hospital? No Coverage Notice Reviewer: [email or web address] Lg Lala Notice Issued Date-Time: 05/30/2018 13:01 Notice Type: Patient Choice Letter Notice Delivered To: Patient Relationship to Patient: Self Supervisor Specialty Plant Name: Delivery Method: HAND - Hand Delivered Maki Days: Prior Verbal Notification: Recipient Understood Notice: Yes Recipient Signature: Yes Med Rec Note Co-signed by Attending: Coverage Notice Comment: ÁNGEL for [facility] Last DP export: 05/30/18 11:58 am Patient Name: DOV KASPER Page 74587 at 1309 All edits/amendments must be made on the electronic document DICTATION DATE: 05/30/18 1309 WASTEWATER TREATMENT ENGINEER: ANNE 05/30/18 1309 RPT#: [id number] DC DATE:05/30/18 STATUS: DIS IN [facility] [address] [address] END OF REPORT
--- NOTE | 2018-06-01 00:12 | MORECARE ---
CASE MANAGEMENT DISCHARGE SUMMARY PATIENT: DOV KASPER UNIT: [id number] ADM DATE: 05/28/18 AGE: 87 : 32 SEX: M ROOM/BED: D.2237 AUTHOR: EMILY HINDS PHYSICIAN: REFERRING PHYSICIAN: JAMEE DONAHUE DO DATE OF SERVICE: 06/01/18 Discharge Plan Patient Name: DOV KASPER Facility: [facility]:[place] : 1930 Planned Disposition: Home Anticipated Discharge Date: 05/30/18 Discharge Date: 05/30/2018 Expected LOS: 2 Initial Reviewer: [email or web address] Initial Review Date: 05/28/2018 Generated: 06/01/18 1:11 am Comments DCP- Discharge Planning Updated by [email or web address]: Taina Lala on 05/30/18 12:[address] Patient Name: DOV KASPER Encounter No: [id number] : 1930 Primary Insurance: MEDICARE A & B Anticipated DC Date: 05-30-2018 Planned Disposition: Home External Planned Provider: : DCP follow-up note: Patient and family in agreement with discharge plan. No changes to plan. ÁNGEL for [facility] signed. I called Kayla and they will begin seeing him on Monday. I asked for a medical alert button. He states he has been weak in his left leg for about 2 years, but lately it has become a little more weak and numb. Case management will follow and assist as needed. Taina Lala DCP- Discharge Planning Updated by [email or web address]: Mayela Noe on 05/28/18 5:[address] Patient Name: DOV KASPER Admission Status: ER Accout number: [id number] Admission Date: 05-28-2018 : 1930 Admission Diagnosis: Attending: JAMEE DONAHUE Current LOS: 1 Anticipated DC Date: 05-30-2018 Planned Disposition: Home Primary Insurance: MEDICARE A & B Discharge Planning Comments: CM met with patient , his son, and his to complete initial dc planning assessment. CM educated patient and his family on the CM role and verbal consent given by patient to complete assessment. Patient lives at home with his and is typically independent in his care at home. He has a walker and oxygen which he uses neither. Patient recently had [facility] but he released them because he said he didn't need them any longer. stated she thinks he may need them again at [place]. ÁNGEL form signed by patient's for [facility]. Signed form placed in chart and signed form given to patient's . At discharge patient plans to return home and they all agree this is a safe discharge. They denied further known discharge needs at this time. CM will continue to follow and will assist as needed with dc plans/needs. Fishing Worker: Mayela Noe RN, [facility] DCPIA - Discharge Planning Initial Assessment Updated by [id number]: Mayela Noe on 05/28/18 6:52 pm * Is the patient Alert and Oriented? Yes * PCP Dr. Rodriguez * Pharmacy [facility] * Preadmission Environment Home with Family * ADLs Independent * Equipment Oxygen Walker * Other Equipment Does not use walker or wear his oxygen at home. * List name and contact numbers for known caregivers / representatives who currently or will assist patient after discharge: Zac Kasper - son - [phone] Ledy Kasper - spouse - [phone] * Verbal permission to speak to the caregivers and representatives has been obtained from the patient. Yes * Community resources currently utilized None * Please name any agencies selected above. Used [facility] in the past but no longer has them. ÁNGEL signed in the ER if needed again at [place] for PT. * Additional services required to return to the preadmission environment? Yes * Can the patient safely return to the preadmission environment? Yes * Has this patient been hospitalized within the prior 30 days at any hospital? No Coverage Notice Reviewer: [id number] Lg Lala Notice Issued Date-Time: 05/30/2018 13:01 Notice Type: Patient Choice Letter Notice Delivered To: Patient Relationship to Patient: Self Seasonal Customer Service Associate Name: Delivery Method: HAND - Hand Delivered Maki Days: Prior Verbal Notification: Recipient Understood Notice: Yes Recipient Signature: Yes Med Rec Note Co-signed by Attending: Coverage Notice Comment: ÁNGEL for [facility] Last DP export: 05/30/18 12:09 pm Patient Name: DOV KASPER Page [phone] at 0012 All edits/amendments must be made on the electronic document DICTATION DATE: 06/01/1810 PHYSICIAN RELATIONS MANAGER: DM 06/01/1810 RPT#: [id number] DC DATE:05/30/18 STATUS: DIS IN [facility] [address] [place] [address] END OF REPORT
[2018-06-01] MEDS ORDERED: CIPRO500 MG PO (19:02)
[2018-06-01] MEDS ORDERED: MACROBID100 MG PO (19:02)
== END 2018-05-30 12:43 | disposition home health service (06) | DRG 82 ==
LOC: D.ER 16:21 → D.MS 17:59
PROVIDERS: Family Medicine; Internal Medicine Nephrology; ADMIT Family Medicine; ATTEND Family Medicine
DX: S06.6X9A Traumatic subarachnoid hemorrhage with loss of consciousness of unspecified duration, initial encounter (principal); E88.3 Tumor lysis syndrome; S22.32XA Fracture of one rib, left side, initial encounter for closed fracture; C7A.8 Other malignant neuroendocrine tumors; C34.90 Malignant neoplasm of unspecified part of unspecified bronchus or lung; I10 Essential (primary) hypertension; T45.1X5A Adverse effect of antineoplastic and immunosuppressive drugs, initial encounter

== ENCOUNTER → 2018-06-18 13:04 | Outpatient (CLI) | payer MEDICARE, OTHER ==
[2018-05-29 15:17] VITALS: BMI 25.8
[~2018-06-18 13:04] MED LIST changes: +CATAPRES0.1 MG PO; +CIPRO500 MG PO; +MACROBID100 MG PO
== END | disposition home or self-care (01) ==
LOC: D.LABREF 13:04
PROVIDERS: ATTEND Urology
DX: R31.9 Hematuria, unspecified (principal)

== ENCOUNTER → 2018-09-25 09:17 | Outpatient (CLI) | payer MEDICARE, OTHER ==
[2018-05-29 15:17] VITALS: BMI 25.8
== END | disposition home or self-care (01) ==
LOC: D.CT 09:17
PROVIDERS: ATTEND Internal Medicine Hematology & Oncology
DX: C7A.8 Other malignant neuroendocrine tumors (principal)

== ENCOUNTER 2018-10-30 15:53 | Inpatient (IN) | payer MEDICARE, OTHER ==
[~2018-10-30] VITALS: Ht 180.3 cm; Wt 86.6 kg
[2018-10-30 17:36] LABS: BASOPHILS 0.3 % (0-2); EOSINOPHILS 0.6 % (0-7); HEMATOCRIT 35.1 % (42.0-54.0); IMMATURE GRANULOCYTES 0.1 % (0-5); LYMPHOCYTES 6.7 % (15-50); MCH 32.4 pg (26.0-34.0); MCHC 34.2 g/dL (31.0-37.0); MCV 94.9 fL (80.0-100.0); MEAN PLATELET VOLUME 9.5 fL (7.4-10.4); MONOCYTES 9.3 % (2-11); WBC 7.1 10x3/uL (4.8-10.8)
[2018-10-30 17:40] LABS: PLATELET COUNT 136 10x3/uL (130-400)
[2018-10-30 17:55] LABS: ALBUMIN 3.6 g/dL (3.4-5.0); ALKALINE PHOSPHATASE 61 U/L (46-116); ALT (SGPT) 23 U/L (10-68); BILIRUBIN - TOTAL 0.45 mg/dL (0.2-1.3); CALC OSMOLALITY 297 mosm/kg (275-300); CALCIUM 9.1 mg/dL (8.5-10.1); CARBON DIOXIDE 28.9 mmol/L (21.0-32.0); CHLORIDE - SERUM 104 mmol/L (98-107); CREATININE - SERUM 1.5 mg/dL (0.6-1.3); GLUCOSE 161 mg/dL (74-106); POTASSIUM - SERUM 4.6 mmol/L (3.5-5.1); PROTEIN - SERUM 7.1 g/dL (6.4-8.2); SODIUM 141 mmol/L (136-145); UREA NITROGEN 52 mg/dL (7-18); eGFR NON AFRICAN AMERICAN 47 mL/min (90-120)
[2018-10-30 18:00] VITALS: BP 114/67
[2018-10-30 18:03] LABS: CKMB 1.5 U/L (0.0-3.6); CREATINE KINASE 66 UL (21-232)
[2018-10-30 18:09] LABS: TROPONIN-I < 0.017 ng/mL (0.000-0.060)
--- NOTE | 2018-10-30 19:09 | NUR ---
BS REPORT TO SAULO GAN BY SBAR FORMAT
[2018-10-30] MEDS ORDERED: PRAVACHOL80 MG PO (21:01)
[2018-10-30] MEDS ORDERED: METAMUCIL PACKE1 PKT PO (21:02)
[2018-10-30] MEDS ORDERED: CARAFATE1 G PO (21:07)
--- NOTE | 2018-10-30 21:16 | NUR ---
RECEIVED FROM ER VIA [employer]. ALERT.ORIENTED.O2 @ 2L PER NC ON. IV TO RAC INTACT WITHOUT REDNESS OR EDEMA NOTED. ORIENTED TO ROOM. CL IN REACH. FAMILY AT BEDSIDE.
[2018-10-31] VITALS (7 sets, daily range): BP systolic 104–136; BP diastolic 61–79; Ht 180.3 cm; Wt 86.6 kg
[2018-10-31 06:01] LABS: BASOPHILS 0.5 % (0-2); EOSINOPHILS 1.4 % (0-7); HEMOGLOBIN 11.4 g/dL (13.5-17.5); IMMATURE GRANULOCYTES 0.2 % (0-5); LYMPHOCYTES 8.3 % (15-50); MCH 31.9 pg (26.0-34.0); MCHC 33.5 g/dL (31.0-37.0); MCV 95.2 fL (80.0-100.0); MEAN PLATELET VOLUME 9.1 fL (7.4-10.4); MONOCYTES 13.2 % (2-11); NEUTROPHILS 76.4 % (40-80); PLATELET COUNT 120 10x3/uL (130-400); RBC 3.57 10x6/uL (4.20-6.10); RDW 15.1 % (11.5-14.5); WBC 5.7 10x3/uL (4.8-10.8)
[2018-10-31 06:29] LABS: ANION GAP 10.6 mmol/L (8-16); CALCIUM 8.8 mg/dL (8.5-10.1); CARBON DIOXIDE 28.5 mmol/L (21.0-32.0); CREATININE - SERUM 1.3 mg/dL (0.6-1.3); MAGNESIUM - SERUM 2.2 mg/dL (1.8-2.4); PHOSPHOROUS 3.9 mg/dL (2.5-4.9); POTASSIUM - SERUM 4.1 mmol/L (3.5-5.1)
[2018-10-31 07:01] LABS: APTT 29.7 SECONDS (22.8-39.4); INR 1.18 (0.85-1.17); PROTIME 14.5 SECONDS (11.6-15.0)
--- NOTE | 2018-10-31 07:20 | NUR ---
REC'D IN BED WITH EYES CLOSED EASILY AROUSED WHEN NAME IS CALLED. RESP EVEN AND UNLABORED WITH NO DISTRESS. ASSESSMENT COMPLETED. C/L IN REACH AT BEDSIDE.
--- NOTE | 2018-10-31 12:15 | NUR ---
RETURN FROM IR WITH DRESSING INTACT TO RIGHT UPPER BACK. TOLERATED PROCEDURE WELL. C/L AND FAMILY AT BEDSIDE.
[2018-10-31 12:38] LABS: PROTEIN - BODY FLUID 4.3 G/DL
--- NOTE | 2018-10-31 14:23 | NUR ---
I have reviewed this patient and I concur with the Shift Assessment completed by the Licensed Practical Nurse today this shift.
[2018-10-31 14:27] LABS: MACROPHAGES BF 43 %; MESOTHELIALS BF 4 %; NEUT - BF 13 %
--- NOTE | 2018-10-31 14:39 | MORECARE ---
CASE MANAGEMENT DISCHARGE SUMMARY PATIENT: DOV KASPER UNIT: [id number] ADM DATE: 10/30/18 AGE: 88 : 32 SEX: M ROOM/BED: D.2206 AUTHOR: EMILY HINDS PHYSICIAN: REFERRING PHYSICIAN: JHONATHAN KELLY MD DATE OF SERVICE: 10/31/18 Discharge Plan Patient Name: DOV KASPER [facility] [facility] 1930 Planned Disposition: Home or Self Care Anticipated Discharge Date: Discharge Date: Expected LOS: Initial Reviewer: [email or web address] Initial Review Date: 10/30/2018 Generated: 10/31/18 3:39 pm DCPIA - Discharge Planning Initial Assessment Updated by [email or web address]: Kate Stephens on 10/31/18 2:37 pm * Is the patient Alert and Oriented? Yes * How many steps to enter\exit or inside your home? * PCP LETICIA * Pharmacy [facility] * Preadmission Environment Home with Family * ADLs Independent * Equipment Cane Oxygen Walker * Other Equipment CONCENTRATOR * List name and contact numbers for known caregivers / representatives who currently or will assist patient after discharge: JIHAN KASPER (SON)[phone] MEHRAN KASPER() * Verbal permission to speak to the caregivers and representatives has been obtained from the patient. Yes * Community resources currently utilized None * Additional services required to return to the preadmission environment? No * Can the patient safely return to the preadmission environment? Yes * Has this patient been hospitalized within the prior 30 days at any hospital? No Patient Name: DOV KASPER Page 72198 at 1439 All edits/amendments must be made on the electronic document DICTATION DATE: 10/31/18 1439 SALES ARCHITECT: ANNE 10/31/18 1439 RPT#: [id number] DC DATE: STATUS: ADM IN [facility] [address] [place] [address] END OF REPORT
--- NOTE | 2018-10-31 14:47 | MORECARE ---
CASE MANAGEMENT DISCHARGE SUMMARY PATIENT: DOV KASPER UNIT: [id number] ADM DATE: 10/30/18 AGE: 88 : 32 SEX: M ROOM/BED: D.2206 AUTHOR: LIZETDOC PHYSICIAN: REFERRING PHYSICIAN: JHONATHAN KELLY MD DATE OF SERVICE: 10/31/18 Discharge Plan Patient Name: DOV KASPER Facility: [facility]:[place] : 1930 Planned Disposition: Home or Self Care Anticipated Discharge Date: Discharge Date: Expected LOS: Initial Reviewer: [email or web address] Initial Review Date: 10/30/2018 Generated: 10/31/18 3:47 pm Comments DCP- Discharge Planning Updated by [email or web address]: Kate Stephens on 10/31/18 1:[address] Patient Name: DOV KASPER Admission Status: ER Accout number: [id number] Admission Date: 10-30-2018 : 1930 Admission Diagnosis: Attending: JHONATHAN CISNEROS Current LOS: 1 Anticipated DC Date: Planned Disposition: Home or Self Care Primary Insurance: MEDICARE A & B Discharge Planning Comments: CM met with patient to complete initial dc planning assessment. CM educated patient on the CM role and verbal consent given by patient to complete assessment. Patient lives at home with his where he stated he is independent with his care. At discharge patient plans to return home and feels this is a safe discharge. CM discussed availability of home health, rehab services, and medical equipment. He has home O2 with concentrator with portability, but can not remember where he gets it, but is happy with the company. He has a walker and cane. He does not want home health when he is discharged. His son Jihan will be his armored truck driver home at [place]. Patient denied known discharge needs at this time. CM will continue to follow and will assist as needed with dc plans/needs. Rug Cleaning Supervisor: Kate Stephens DCPIA - Discharge Planning Initial Assessment Updated by [email or web address]: Kate Stephens on 10/31/18 2:37 pm * Is the patient Alert and Oriented? Yes * How many steps to enter\exit or inside your home? * PCP LETICIA * Pharmacy [facility] * Preadmission Environment Home with Family * ADLs Independent * Equipment Cane Oxygen Walker * Other Equipment CONCENTRATOR * List name and contact numbers for known caregivers / representatives who currently or will assist patient after discharge: JIHAN KASPER (SON)[phone] MEHRAN KASPER() * Verbal permission to speak to the caregivers and representatives has been obtained from the patient. Yes * Community resources currently utilized None * Additional services required to return to the preadmission environment? No * Can the patient safely return to the preadmission environment? Yes * Has this patient been hospitalized within the prior 30 days at any hospital? No Last DP export: 10/31/18 1:39 pm Patient Name: DOV KASPER Page 30083 at 1447 All edits/amendments must be made on the electronic document DICTATION DATE: 10/31/181446 INTERNET MARKETING COORDINATOR: ANNE 10/31/181446 RPT#: [id number] DC DATE: STATUS: ADM IN [facility] [address] [place] [address] END OF REPORT
--- NOTE | 2018-10-31 20:40 | NUR ---
LYING QUEITLY WITH NO DISTRESS NOTED. RESP UNLABORED. O2 @ 2L PER NC ON. IV INFUSING TO RAC WITHOUT REDNESS OR EDEMA NOTED. NO COMPLAITNS VOICED. CL IN REACH
[2018-11-01 01:06] VITALS: BP 111/61
--- NOTE | 2018-11-01 05:02 | NUR ---
I have reviewed this patient and I concur with the Shift Assessment completed by the Licensed Practical Nurse today this shift.
[2018-11-01 05:37] VITALS: BP 111/63
[2018-11-01 06:43] LABS: BASOPHILS 0.3 % (0-2); EOSINOPHILS 1.7 % (0-7); HEMATOCRIT 33.4 % (42.0-54.0); HEMOGLOBIN 11.1 g/dL (13.5-17.5); IMMATURE GRANULOCYTES 0.2 % (0-5); LYMPHOCYTES 8.1 % (15-50); MCH 31.5 pg (26.0-34.0); MCHC 33.2 g/dL (31.0-37.0); MCV 94.9 fL (80.0-100.0); MEAN PLATELET VOLUME 8.7 fL (7.4-10.4); MONOCYTES 10.4 % (2-11); NEUTROPHILS 79.3 % (40-80); PLATELET COUNT 113 10x3/uL (130-400); RBC 3.52 10x6/uL (4.20-6.10); RDW 14.9 % (11.5-14.5); WBC 5.9 10x3/uL (4.8-10.8)
[2018-11-01 07:01] LABS: ANION GAP 10.9 mmol/L (8-16); CREATININE - SERUM 1.2 mg/dL (0.6-1.3); MAGNESIUM - SERUM 1.8 mg/dL (1.8-2.4); PHOSPHOROUS 3.5 mg/dL (2.5-4.9); POTASSIUM - SERUM 3.9 mmol/L (3.5-5.1)
--- NOTE | 2018-11-01 07:25 | NUR ---
AWAKE AND ALERT. ORIENTED X3. NO C/O AT THIS TIME. LUNGS ARE CLEAR BILATERALLY BUT DIMINISHED ON LEFT. NO COUGH NOTED. SKIN IS INTACT WITHOUT REDNESSS. IV TO IV TO RIGHT AC IS PATENT WITHOUT REDNESS AT INSERTION SITE. INCONTINENT OR URINE AT THIS TIME. LINENS CHANGED PER STAFF. SCD'S INPLAC.E
[2018-11-01 08:03] VITALS: BP 137/75
--- NOTE | 2018-11-01 11:00 | NUR ---
FOUND WITH IV OUT OF ARM CATHETER INTACT. RESITED TO RIGHT FORARM AFTER ONE ATTEMPT WITH 20 G. DENIES NEEDS.
[2018-11-01 12:17] VITALS: BP 164/63
--- NOTE | 2018-11-01 13:00 | NUR ---
ATE ABOUT HALF OF LUNCH TRAY. DENIES NEEDS.
--- NOTE | 2018-11-01 15:00 | NUR ---
RESTING QUIETLY IN BED WITH EYES CLOSED. FAMILY AT BEDSIDE.
[2018-11-01 15:39] VITALS: BP 113/68
--- NOTE | 2018-11-01 18:02 | NUR ---
ATE ALL OF SOUP AND DRANK MILK FOR SUPPER. UP TO BR WITH ONE PERSON MIN ASSIST. VOIDED CLEAR YELLOW URINE WITHOUT DIFFICULTY. DENIES NEEDS. NO CHANGES NOTED.
[2018-11-01 20:05] VITALS: BP 118/64
[2018-11-01 20:07] LABS: ACID FAST SMEAR Negative (()); AFB SPECIMEN PROCESSING Concentration (())
--- NOTE | 2018-11-01 20:45 | NUR ---
AWAKE,ALERT.NO COMPLAINTS VOICED. RESP EVEN AND UNALBORED. O2 @ 2L PER CN ON. NO DISTRESS NOTED. IV INFUSING TO RFA WITHOUT REDNESS OR EDEMA NOTED. CL IN REACH. FAMILY AT BEDSIDE.GABRIEL PAT ON.
[2018-11-02 00:36] VITALS: BP 135/70
--- NOTE | 2018-11-02 02:42 | NUR ---
I have reviewed this patient and I concur with the Shift Assessment completed by the Licensed Practical Nurse today this shift.
[2018-11-02 04:55] VITALS: BP 111/66
[2018-11-02 06:32] LABS: BASOPHILS 0.2 % (0-2); EOSINOPHILS 1.3 % (0-7); HEMATOCRIT 32.7 % (42.0-54.0); HEMOGLOBIN 10.8 g/dL (13.5-17.5); LYMPHOCYTES 6.1 % (15-50); MCH 31.5 pg (26.0-34.0); MCV 95.3 fL (80.0-100.0); MONOCYTES 8.7 % (2-11); NEUTROPHILS 83.7 % (40-80); PLATELET COUNT 106 10x3/uL (130-400); RBC 3.43 10x6/uL (4.20-6.10); RDW 14.9 % (11.5-14.5)
[2018-11-02 06:55] LABS: WBC 8.7 10x3/uL (4.8-10.8)
[2018-11-02 06:57] LABS: ANION GAP 10.3 mmol/L (8-16); CALCIUM 8.3 mg/dL (8.5-10.1); CARBON DIOXIDE 28.7 mmol/L (21.0-32.0); CREATININE - SERUM 1.1 mg/dL (0.6-1.3); MAGNESIUM - SERUM 1.9 mg/dL (1.8-2.4); PHOSPHOROUS 3.8 mg/dL (2.5-4.9)
--- NOTE | 2018-11-02 07:30 | NUR ---
AWAKE AND ALERT. ORIENTED X3. NO C/O THIS AM. OCCASSIONAL NON PRODUCTIVE COUGH NOTED. LUNGS HAVE FAINT WHEEZES IN LEFT LOWER LOBE. SKIN IS INTACT WITHOUT REDNESS. IV TO RIGHT FOREARM IS PATENT WITHOUT REDNESS AT INSERTION SITE. SCD'S IN PLACE. DENIES NEEDS.
[2018-11-02 08:04] VITALS: BP 109/59
--- NOTE | 2018-11-02 09:00 | NUR ---
ATE ALMOST ALL OF BREAKFAST. REQUESTED AND GIVEN TUSSINEX PO FOR C/O COUGH. WILL MONITOR. SON AT BEDSIDE.
--- NOTE | 2018-11-02 10:41 | NUR ---
NUTRITION F/U PT TOLERATING REG DIET. FAMILY REPORTS PT PO INTAKE OF RECENT MEALS HAS BEEN GOOD. ATE ~ 75% BREAKFAST THIS AM. WILL CONTINUE TO PROVIDE DIET, HONOR FOOD PREFERENCES. RD FOLLOWING
[2018-11-02 12:50] VITALS: BP 112/70
--- NOTE | 2018-11-02 14:05 | MORECARE ---
CASE MANAGEMENT DISCHARGE SUMMARY PATIENT: DOV KASPER UNIT: [id number] ADM DATE: 10/30/18 AGE: 88 : 32 SEX: M ROOM/BED: D.2206 AUTHOR: LIZETDOC PHYSICIAN: REFERRING PHYSICIAN: JHONATHAN KELLY MD DATE OF SERVICE: 11/02/18 Discharge Plan Patient Name: DOV KASPER Facility: [facility]:[place] : 1930 Planned Disposition: Home or Self Care Anticipated Discharge Date: Discharge Date: Expected LOS: Initial Reviewer: [email or web address] Initial Review Date: 10/30/2018 Generated: 11/02/18 3:05 pm Comments DCP- Discharge Planning Updated by [email or web address]: Kate Stephens on 11/02/18 1:[address] PATIENT WOULD LIKE TO GO TO INPATIENT REHAB AT [facility], REFERRAL SENT. IMM SERVED AND EXPLAINED. SON AT BEDSIDE. CM TO FOLLOW AND ASSIST NEEDED DCP- Discharge Planning Updated by [email or web address]: Kate Stephens on 10/31/18 1:[address] Patient Name: DOV KASPER Admission Status: ER Accout number: [id number] Admission Date: 10-30-2018 : 1930 Admission Diagnosis: Attending: JHONATHAN CISNEROS Current LOS: 1 Anticipated DC Date: Planned Disposition: Home or Self Care Primary Insurance: MEDICARE A & B Discharge Planning Comments: CM met with patient to complete initial dc planning assessment. CM educated patient on the CM role and verbal consent given by patient to complete assessment. Patient lives at home with his where he stated he is independent with his care. At discharge patient plans to return home and feels this is a safe discharge. CM discussed availability of home health, rehab services, and medical equipment. He has home O2 with concentrator with portability, but can not remember where he gets it, but is happy with the company. He has a walker and cane. He does not want home health when he is discharged. His son Jihan will be his new autos delivery driver home at [place]. Patient denied known discharge needs at this time. CM will continue to follow and will assist as needed with dc plans/needs. Lead Clinical Research Coordinator: Kate Stephens DCPIA - Discharge Planning Initial Assessment Updated by [email or web address]: Kate Stephens on 10/31/18 2:37 pm * Is the patient Alert and Oriented? Yes * How many steps to enter\exit or inside your home? * PCP VALE * Pharmacy [facility] * Preadmission Environment Home with Family * ADLs Independent * Equipment Cane Oxygen Walker * Other Equipment CONCENTRATOR * List name and contact numbers for known caregivers / representatives who currently or will assist patient after discharge: JIHAN KASPER (SON)[phone] MEHRAN KASPER() * Verbal permission to speak to the caregivers and representatives has been obtained from the patient. Yes * Community resources currently utilized None * Additional services required to return to the preadmission environment? No * Can the patient safely return to the preadmission environment? Yes * Has this patient been hospitalized within the prior 30 days at any hospital? No External Providers External Provider: [facility] Contact Date: Service Request Date: Service Type: Resolution: Reviewer: Comments: Last DP export: 10/31/18 1:47 pm Patient Name: DOV KASPER Page 54136 at 1405 All edits/amendments must be made on the electronic document DICTATION DATE: 11/02/18 1405 LAMINATION MACHINE OPERATOR: ANNE 11/02/18 1405 RPT#: [id number] DC DATE: STATUS: ADM IN [facility] [address] [place] [address] END OF REPORT
[2018-11-02 14:09] LABS: FUNGUS STAIN Final report (())
[2018-11-02] MEDS ORDERED: ALBUTEROL2.5 MG/3 M UPD (14:29)
[2018-11-02] MEDS ORDERED: LEVOFLOXAC500 MG/100 IV (14:29)
[2018-11-02] MEDS ORDERED: IPRAT-ALBUT 0.5-3 ML UPD (14:29)
[2018-11-02] MEDS ORDERED: HYDROCODONE PO (14:30)
[2018-11-02] MEDS ORDERED: CHLORPHENIRAMINE PO (14:30)
[2018-11-02] MEDS ORDERED: MIRALAX17 GM PO (14:30)
[2018-11-02] MEDS ORDERED: PROTONIX40 MG PO (14:30)
[2018-11-02] MEDS ORDERED: MUCINEX600 MG PO (14:30)
[2018-11-02] MEDS ORDERED: TESSALON PERLE100 MG PO (14:30)
--- NOTE | 2018-11-02 15:27 | MORECARE ---
CASE MANAGEMENT DISCHARGE SUMMARY PATIENT: DOV KASPER UNIT: [id number] ADM DATE: 10/30/18 AGE: 88 : 32 SEX: M ROOM/BED: D.2206 AUTHOR: EMILY HINDS PHYSICIAN: REFERRING PHYSICIAN: JHONATHAN KELLY MD DATE OF SERVICE: 11/02/18 Discharge Plan Patient Name: DOV KASPER Facility: [facility]:[place] : 1930 Planned Disposition: Home or Self Care Anticipated Discharge Date: Discharge Date: Expected LOS: Initial Reviewer: [email or web address] Initial Review Date: 10/30/2018 Generated: 11/02/18 4:26 pm Comments DCP- Discharge Planning Updated by [id number]: Kate Stephens on 11/02/18 2:[address] Patient discharging to inpatient rehab at [facility] today DCP- Discharge Planning Updated by [email or web address]: Kate Stephens on 11/02/18 1:[address] PATIENT WOULD LIKE TO GO TO INPATIENT REHAB AT [facility], REFERRAL SENT. IMM SERVED AND EXPLAINED. SON AT BEDSIDE. CM TO FOLLOW AND ASSIST NEEDED DCP- Discharge Planning Updated by [email or web address]: Kate Stephens on 10/31/18 1:[address] Patient Name: DOV KASPER Admission Status: ER Accout number: [id number] Admission Date: 10-30-2018 : 1930 Admission Diagnosis: Attending: JHONATHAN CISNEROS Current LOS: 1 Anticipated DC Date: Planned Disposition: Home or Self Care Primary Insurance: MEDICARE A & B Discharge Planning Comments: CM met with patient to complete initial dc planning assessment. CM educated patient on the CM role and verbal consent given by patient to complete assessment. Patient lives at home with his where he stated he is independent with his care. At discharge patient plans to return home and feels this is a safe discharge. CM discussed availability of home health, rehab services, and medical equipment. He has home O2 with concentrator with portability, but can not remember where he gets it, but is happy with the company. He has a walker and cane. He does not want home health when he is discharged. His son Jihan will be his electric mule driver home at [place]. Patient denied known discharge needs at this time. CM will continue to follow and will assist as needed with dc plans/needs. Admitting Office Escort: Kate Stephens DCPIA - Discharge Planning Initial Assessment Updated by [email or web address]: Kate Stephens on 10/31/18 2:37 pm * Is the patient Alert and Oriented? Yes * How many steps to enter\exit or inside your home? * PCP [place] * Pharmacy [facility] * Preadmission Environment Home with Family * ADLs Independent * Equipment Cane Oxygen Walker * Other Equipment CONCENTRATOR * List name and contact numbers for known caregivers / representatives who currently or will assist patient after discharge: JIHAN KASPER (SON)[phone] MEHRAN KASPER() * Verbal permission to speak to the caregivers and representatives has been obtained from the patient. Yes * Community resources currently utilized None * Additional services required to return to the preadmission environment? No * Can the patient safely return to the preadmission environment? Yes * Has this patient been hospitalized within the prior 30 days at any hospital? No Coverage Notice Reviewer: [id number] - Kate Stephens Notice Issued Date-Time: 11/02/2018 14:00 Notice Type: IM Discharge Notice Notice Delivered To: Family Member Relationship to Patient: Son Erosion Control Specialist Name: JIHAN KASPER Delivery Method: HAND - Hand Delivered Maki Days: Prior Verbal Notification: Recipient Understood Notice: Yes Recipient Signature: Yes Med Rec Note Co-signed by Attending: Coverage Notice Comment: Last DP export: 11/02/18 1:05 pm Patient Name: DOV KASPER Page [id number] at 1527 All edits/amendments must be made on the electronic document DICTATION DATE: 11/02/18 1526 CLAIM BENEFIT SPECIALIST: ANNE 11/02/18 1526 RPT#: [id number] DC DATE: STATUS: ADM IN [facility] [address] [place] [address] END OF REPORT
--- NOTE | 2018-11-02 15:37 | MORECARE ---
CASE MANAGEMENT DISCHARGE SUMMARY PATIENT: DOV KASPER UNIT: [id number] ADM DATE: 10/30/18 AGE: 88 : 32 SEX: M ROOM/BED: D.2206 AUTHOR: EMILY HINDS PHYSICIAN: REFERRING PHYSICIAN: JHONATHAN KELLY MD DATE OF SERVICE: 11/02/18 Discharge Plan Patient Name: DOV KASPER Facility: [facility]:[place] : 1930 Planned Disposition: Home or Self Care Anticipated Discharge Date: Discharge Date: Expected LOS: Initial Reviewer: [email or web address] Initial Review Date: 10/30/2018 Generated: 11/02/18 4:36 pm Comments DCP- Discharge Planning Updated by [email or web address]: Kate Stephens on 11/02/18 2:[address] Patient discharging to inpatient rehab at [facility] today DCP- Discharge Planning Updated by [email or web address]: Kate Stephens on 11/02/18 1:[address] PATIENT WOULD LIKE TO GO TO INPATIENT REHAB AT [facility], REFERRAL SENT. IMM SERVED AND EXPLAINED. SON AT BEDSIDE. CM TO FOLLOW AND ASSIST NEEDED DCP- Discharge Planning Updated by [email or web address]: Kate Stephens on 10/31/18 1:[address] Patient Name: DOV KASPER Admission Status: ER Accout number: [id number] Admission Date: 10-30-2018 : 1930 Admission Diagnosis: Attending: JHONATHAN CISNEROS Current LOS: 1 Anticipated DC Date: Planned Disposition: Home or Self Care Primary Insurance: MEDICARE A & B Discharge Planning Comments: CM met with patient to complete initial dc planning assessment. CM educated patient on the CM role and verbal consent given by patient to complete assessment. Patient lives at home with his where he stated he is independent with his care. At discharge patient plans to return home and feels this is a safe discharge. CM discussed availability of home health, rehab services, and medical equipment. He has home O2 with concentrator with portability, but can not remember where he gets it, but is happy with the company. He has a walker and cane. He does not want home health when he is discharged. His son Jihan will be his emergency vehicle driver home at [place]. Patient denied known discharge needs at this time. CM will continue to follow and will assist as needed with dc plans/needs. Software Product Specialist: Kate Stephens DCPIA - Discharge Planning Initial Assessment Updated by [id number]: Kate Stephens on 10/31/18 2:37 pm * Is the patient Alert and Oriented? Yes * How many steps to enter\exit or inside your home? * PCP [place] * Pharmacy [facility] * Preadmission Environment Home with Family * ADLs Independent * Equipment Cane Oxygen Walker * Other Equipment CONCENTRATOR * List name and contact numbers for known caregivers / representatives who currently or will assist patient after discharge: JIHAN KASPER (SON)[phone] MEHRAN KASPER() * Verbal permission to speak to the caregivers and representatives has been obtained from the patient. Yes * Community resources currently utilized None * Additional services required to return to the preadmission environment? No * Can the patient safely return to the preadmission environment? Yes * Has this patient been hospitalized within the prior 30 days at any hospital? No Coverage Notice Reviewer: [id number] - Kate Stephens Notice Issued Date-Time: 11/02/2018 14:00 Notice Type: IM Discharge Notice Notice Delivered To: Family Member Relationship to Patient: Son Tests Superintendent Name: JIHAN KASPER Delivery Method: HAND - Hand Delivered Maki Days: Prior Verbal Notification: Recipient Understood Notice: Yes Recipient Signature: Yes Med Rec Note Co-signed by Attending: Coverage Notice Comment: Last DP export: 11/02/18 2:27 pm Patient Name: DOV KASPER Page 21100 at 1537 All edits/amendments must be made on the electronic document DICTATION DATE: 11/02/18 1536 E COMMERCE MERCHANDISING COORDINATOR: ANNE 11/02/18 1536 RPT#: [id number] DC DATE: STATUS: ADM IN [facility] [address] [place] [address] END OF REPORT
--- NOTE | 2018-11-02 16:20 | NUR ---
REPORT CALLED TO SUJIT SALES RN AT [facility]. ALL QUESTIONS ANSWERED.
--- NOTE | 2018-11-02 16:24 | MORECARE ---
CASE MANAGEMENT DISCHARGE SUMMARY PATIENT: DOV KASPER UNIT: [id number] ADM DATE: 10/30/18 AGE: 88 : 32 SEX: M ROOM/BED: D.2206 AUTHOR: LIZETDOC PHYSICIAN: REFERRING PHYSICIAN: JHONATHAN KELLY MD DATE OF SERVICE: 11/02/18 Discharge Plan Patient Name: DOV KASPER Facility: [facility]:[place] : 1930 Planned Disposition: Home or Self Care Anticipated Discharge Date: Discharge Date: Expected LOS: Initial Reviewer: [email or web address] Initial Review Date: 10/30/2018 Generated: 11/02/18 5:23 pm Comments DCP- Discharge Planning Updated by [id number]: Kate Stephens on 11/02/18 3:[address] PATIENT WILL BE DISCHARGING TO ROOM [facility] DCP- Discharge Planning Updated by [email or web address]: Kate Stephens on 11/02/18 2:[address] Patient discharging to inpatient rehab at [facility] today DCP- Discharge Planning Updated by [email or web address]: Kate Stephens on 11/02/18 1:[address] PATIENT WOULD LIKE TO GO TO INPATIENT REHAB AT [facility], REFERRAL SENT. IMM SERVED AND EXPLAINED. SON AT BEDSIDE. CM TO FOLLOW AND ASSIST NEEDED DCP- Discharge Planning Updated by [email or web address]: Kate Stephens on 10/31/18 1:[address] Patient Name: DOV KASPER Admission Status: ER Accout number: [id number] Admission Date: 10-30-2018 : 1930 Admission Diagnosis: Attending: JHONATHAN CISNEROS Current LOS: 1 Anticipated DC Date: Planned Disposition: Home or Self Care Primary Insurance: MEDICARE A & B Discharge Planning Comments: CM met with patient to complete initial dc planning assessment. CM educated patient on the CM role and verbal consent given by patient to complete assessment. Patient lives at home with his where he stated he is independent with his care. At discharge patient plans to return home and feels this is a safe discharge. CM discussed availability of home health, rehab services, and medical equipment. He has home O2 with concentrator with portability, but can not remember where he gets it, but is happy with the company. He has a walker and cane. He does not want home health when he is discharged. His son Jihan will be his otr refrigerated cdl truck driver home at [place]. Patient denied known discharge needs at this time. CM will continue to follow and will assist as needed with dc plans/needs. Brake Lining Finisher: Kate Stephens DCPIA - Discharge Planning Initial Assessment Updated by [id number]: Kate Stephens on 10/31/18 2:37 pm * Is the patient Alert and Oriented? Yes * How many steps to enter\exit or inside your home? * PCP [place] * Pharmacy [facility] * Preadmission Environment Home with Family * ADLs Independent * Equipment Cane Oxygen Walker * Other Equipment CONCENTRATOR * List name and contact numbers for known caregivers / representatives who currently or will assist patient after discharge: JIHAN KASPER (SON)[phone] MEHRAN KASPER() * Verbal permission to speak to the caregivers and representatives has been obtained from the patient. Yes * Community resources currently utilized None * Additional services required to return to the preadmission environment? No * Can the patient safely return to the preadmission environment? Yes * Has this patient been hospitalized within the prior 30 days at any hospital? No Coverage Notice Reviewer: [id number] - Kate Stephens Notice Issued Date-Time: 11/02/2018 14:00 Notice Type: IM Discharge Notice Notice Delivered To: Family Member Relationship to Patient: Son Tube Laser Operator Name: JIHAN KASPER Delivery Method: HAND - Hand Delivered Maki Days: Prior Verbal Notification: Recipient Understood Notice: Yes Recipient Signature: Yes Med Rec Note Co-signed by Attending: Coverage Notice Comment: Last DP export: 11/02/18 2:37 pm Patient Name: DOV KASPER Page [id number] at 1624 All edits/amendments must be made on the electronic document DICTATION DATE: 11/02/18 1623 ASSISTANT IN NURSING: ANNE 11/02/18 162 RPT#: [id number] [place] DATE: STATUS: ADM IN [facility] [address] [place] [address] END OF REPORT
[2018-11-02 16:42] VITALS: BP 110/69
--- NOTE | 2018-11-02 16:49 | NUR ---
DISCHARGE INSTRUCTIONS GIVEN BOTH VERBALLY AND WRITTEN. ALL QUESTIONS ANSWERED. PATIENT AND SON VERBALIZED UNDERSTANDING OF SAME. NO NEW PRESCRIPTIONS NEEDED. WAITING ON TRANSPORT TO D/C. IV TO RIGHT FOREARM D/C WITH CATHETER INTACT.
--- NOTE | 2018-11-02 18:23 | NUR ---
DISCHARGED TO [facility] VIA AMBULANCE. ALL BELONGINGS WITH PATIENT. FAMILY HERE AT TIME OF DISCHARGE.
--- NOTE | 2018-11-06 09:51 | MORECARE ---
CASE MANAGEMENT DISCHARGE SUMMARY PATIENT: DOV KASPER UNIT: [id number] ADM DATE: 10/30/18 AGE: 88 : 32 SEX: M ROOM/BED: D.2206 AUTHOR: LIZETDOC PHYSICIAN: REFERRING PHYSICIAN: JHONATHAN KELLY MD DATE OF SERVICE: 11/06/18 Discharge Plan Patient Name: DOV KASPER Facility: [facility]:[place] : 1930 Planned Disposition: Home or Self Care Anticipated Discharge Date: Discharge Date: 11/02/2018 Expected LOS: 0 Initial Reviewer: [email or web address] Initial Review Date: 10/30/2018 Generated: 11/06/18 10:51 am Comments DCP- Discharge Planning Updated by [id number]: Kate Stephens on 11/02/18 3:[address] PATIENT WILL BE DISCHARGING TO [place] [address] DCP- Discharge Planning Updated by [email or web address]: Kate Stephens on 11/02/18 2:[address] Patient discharging to inpatient rehab at [facility] today DCP- Discharge Planning Updated by [email or web address]: Kate Stephens on 11/02/18 1:[address] PATIENT WOULD LIKE TO GO TO INPATIENT REHAB AT [facility], REFERRAL SENT. IMM SERVED AND EXPLAINED. SON AT BEDSIDE. CM TO FOLLOW AND ASSIST NEEDED DCP- Discharge Planning Updated by [email or web address]: Kate Stephens on 10/31/18 1:[address] Patient Name: DOV KASPER Admission Status: ER Accout number: [id number] Admission Date: 10-30-2018 : 1930 Admission Diagnosis: Attending: JHONATHAN CISNEROS Current LOS: 1 Anticipated DC Date: Planned Disposition: Home or Self Care Primary Insurance: MEDICARE A & B Discharge Planning Comments: CM met with patient to complete initial dc planning assessment. CM educated patient on the CM role and verbal consent given by patient to complete assessment. Patient lives at home with his where he stated he is independent with his care. At discharge patient plans to return home and feels this is a safe discharge. CM discussed availability of home health, rehab services, and medical equipment. He has home O2 with concentrator with portability, but can not remember where he gets it, but is happy with the company. He has a walker and cane. He does not want home health when he is discharged. His son Jihan will be his road train driver home at [place]. Patient denied known discharge needs at this time. CM will continue to follow and will assist as needed with dc plans/needs. Trapeze Artist: Kate Stephens DCPIA - Discharge Planning Initial Assessment Updated by [email or web address]: Kate Stephens on 10/31/18 2:37 pm * Is the patient Alert and Oriented? Yes * How many steps to enter\exit or inside your home? * PCP [place] * Pharmacy [facility] * Preadmission Environment Home with Family * ADLs Independent * Equipment Cane Oxygen Walker * Other Equipment CONCENTRATOR * List name and contact numbers for known caregivers / representatives who currently or will assist patient after discharge: JIHAN KASPER (SON)[phone] MEHRAN KASPER() * Verbal permission to speak to the caregivers and representatives has been obtained from the patient. Yes * Community resources currently utilized None * Additional services required to return to the preadmission environment? No * Can the patient safely return to the preadmission environment? Yes * Has this patient been hospitalized within the prior 30 days at any hospital? No Coverage Notice Reviewer: [id number] - Kate Stephens Notice Issued Date-Time: 11/02/2018 14:00 Notice Type: IM Discharge Notice Notice Delivered To: Family Member Relationship to Patient: Son Test Administrator Name: JIHAN KASPER Delivery Method: HAND - Hand Delivered Maki Days: Prior Verbal Notification: Recipient Understood Notice: Yes Recipient Signature: Yes Med Rec Note Co-signed by Attending: Coverage Notice Comment: Last DP export: 11/02/18 3:24 pm Patient Name: DOV KASPER Page [id number] at 0951 All edits/amendments must be made on the electronic document DICTATION DATE: 11/06/18949 DRY LUMBER GRADER: ANNE 11/06/18949 RPT#: [id number] DC DATE:11/02/18 STATUS: DIS IN [facility] [address] [place] [address] END OF REPORT
[2018-11-28 08:11] LABS: FUNGUS MYCOLOGY CULTURE Final report (())
== END 2018-11-02 18:24 | DRG 181 ==
LOC: D.ER 15:53 → D.MS 19:51
PROVIDERS: Emergency Medicine; Family Medicine; General Practice; Internal Medicine Hematology & Oncology; ADMIT Family Medicine Adult Medicine; ATTEND Family Medicine Adult Medicine
PROC: 0W993ZZ Drainage of Right Pleural Cavity, Percutaneous Approach (ICD-10-PCS; principal; 2018-10-31 11:16)
DX: C34.90 Malignant neoplasm of unspecified part of unspecified bronchus or lung (principal); I13.0 Hypertensive heart and chronic kidney disease with heart failure and stage 1 through stage 4 chronic kidney disease, or unspecified chronic kidney disease; N17.9 Acute kidney failure, unspecified; J91.0 Malignant pleural effusion; D64.9 Anemia, unspecified; N18.9 Chronic kidney disease, unspecified; N40.0 Benign prostatic hyperplasia without lower urinary tract symptoms; M19.90 Unspecified osteoarthritis, unspecified site